=== PATIENT | male | born 1980 | race African-American/Black ===

== ENCOUNTER 2017-10-21 08:46 | Emergency (ER) | payer OTHER ==
[2017-10-21] MEDS ORDERED: SODIUM CHLORIDE 0.9% 1,000 ML IV STA (08:50)
[2017-10-21] MEDS ORDERED: ONDANSETRON 4 MG/2 ML VIAL IVP STA (08:50)
[2017-10-21 09:01] LABS: Glucose,Whole Blood 93 mg/dL (75-99)
--- NOTE | 2017-10-21 09:03 | ED ---
General Adult HPI - General Stated complaint: Difficulty Breathing Time Seen by Provider: 10/21/17 08:50 - History of Present Illness Initial comments: 37 male presents by EMS for evaluation of concern for seizure and difficulty breathing. Original EMS call was by family members who stated they felt the patient was about to have a seizure coming does have seizure history. When EMS arrived patient was mildly hypoxic at 90-92%. He was tachycardic in the 120s. Patient was minimally responsive although he would respond to sternal rub. History obtained from the family, patient was out with his friends yesterday in the afternoon consuming alcohol. He came home around 7 PM, fell sleep throughout the night, patient's family did notice that he had some mucus or vomit around his mouth and had some difficulty breathing. Patient had no complaints at the time my evaluation. He denied any street drugs, states he uses marijuana and does admit to alcohol consumption yesterday. - Related Data Home Medications Medication Instructions Recorded Confirmed Atenolol [Tenormin] 25 mg PO DAILY 10/21/17 10/21/17 Naproxen 500 mg PO BID PRN 10/21/17 10/21/17 levETIRAcetam [Keppra] 1,000 mg PO DAILY 10/21/17 10/21/17 Allergies Allergy/AdvReac Type Severity Reaction Status Date / Time No Known Allergies Allergy Verified 10/21/17 09:40 Review of Systems ROS Statement: Those systems with pertinent positive or pertinent negative responses have been documented in the HPI. ROS Other: All systems not noted in ROS Statement are negative. Past Medical History Past Medical History: Hypertension, Seizure Disorder Additional Past Medical History / Comment(s): Pt states he is normally on blood pressure medication but has run out. He has recently moved from [place] to [place] about 1 month ago and has not established with a primary care physician. Last seizure 02/19/16. History of Any Multi-Drug Resistant Organisms: None Reported Past Surgical History: No Surgical Hx Reported Past Anesthesia/Blood Transfusion Reactions: Unable to Obtain Additional Past Anesthesia/Blood Transfusion Reaction / Comment(s): Pt has never had surgery/anesthesia Past Psychological History: No Psychological Hx Reported Additional Psychological History / Comment(s): Pt states he is under alot of stress lately. He moved about a month ago from [place] to [place] to be closer to his children. He is independent other than he does not drive but his friend who lives with him does and will take him to [employer]. Smoking Status: Current every day smoker Past Alcohol Use History: Occasional Additional Past Alcohol Use History / Comment(s): Pt states he starte smoking at age 17 and is a 1ppd smoker. He states he drinks alcohol but does not drink more than 14 drinks per week. Additional Drug Use History / Comment(s): Pt states he smokes a blunt daily - Past Family History Father Family Medical History: CVA/TIA Additional Family Medical History / Comment(s): Father is in his 60's Mother Family Medical History: Diabetes Mellitus, Hypertension General Exam General appearance: appears intoxicated, lethargic Head exam: Present: atraumatic, normocephalic Eye exam: Present: normal appearance, other (Pinpoint pupils bilaterally) ENT exam: Present: mucous membranes dry Neck exam: Present: normal inspection, full ROM. Absent: tenderness Respiratory exam: Present: decreased breath sounds. Absent: respiratory distress Cardiovascular Exam: Present: normal rhythm, tachycardia GI/Abdominal exam: Present: soft. Absent: distended, tenderness, guarding Extremities exam: Present: normal inspection, normal capillary refill, pedal edema. Absent: calf tenderness Neurological exam: Present: alert, oriented X3, CN II-XII intact. Absent: motor sensory deficit Psychiatric exam: Present: normal affect, normal mood Skin exam: Present: warm, dry, intact Course Vital Signs 10/21/17 10/21/17 10/21/17 09:10 09:13 09:38 Temperature 96.7 F L Pulse Rate 135 H 108 H Respiratory 22 22 Rate Blood Pressure 170/105 O2 Sat by Pulse 93 L 94 L Oximetry 10/21/17 10/21/17 10/21/17 10:38 11:00 12:52 Temperature Pulse Rate 102 H 101 H 107 H Respiratory 20 20 18 Rate Blood Pressure 150/83 109/68 127/77 O2 Sat by Pulse 95 95 96 Oximetry - Reevaluation(s) Reevaluation #1: 10/21/17 12:56 On reevaluation, patient does admit to drinking excessive amounts of alcohol and taking 3 [place] as which were not prescribed to him. EKG Findings - EKG Comments: EKG Findings:: EKG shows sinus tachycardia, ventricular rate of 108, LVH, DE interval 132, QRS 86, QTC 447, no signs of ischemia or arrhythmia Medical Decision Making - Medical Decision Making 31 sexual male presenting with chief complaint of difficulty breathing and possible seizure. He does admit to not taking his Keppra twice daily. Patient initially found to be minimally responsive only to sternal rub, and pinpoint pupils. He is given Narcan emergency department with completely reversal of symptoms. He is awake and alert. Neurologic exam nonfocal. Pupils are reactive bilaterally. Laboratory studies which were drawn initially show elevated white blood cell count, elevated serum alcohol at 173, elevated AST greater than ALT suggestive of alcoholic hepatitis, lactic acid is significantly elevated 10.2, this is likely secondary to irritable dehydration and hypoxia secondary to opiate ingestion. Creatinine mildly elevated 1.28, chest x-ray clear. Patient is observed in the emergency department 4 hours, he receives 3 L of IV hydration. Laboratory studies are repeated, creatinine resolved, lactic acid significantly down trending at 3. Patient is reevaluated , he is clinically sober. He has no complaints the time of my evaluation at 1255. He will be discharged home. He is instructed to continue taking his seizure medication as prescribed. He is also instructed to refrain from taking prescription medications not prescribed to him. - Lab Data Result diagrams: 10/21/17 12:06 10/21/17 12:06 Lab Results 10/21/17 10/21/17 10/21/17 Range/Units 08:50 08:54 08:54 WBC 15.9 H (3.8-10.6) k/uL RBC 4.88 (4.30-5.90) m/uL Hgb 14.7 (13.0-17.5) gm/dL Hct 47.9 (39.0-53.0) % MCV 98.2 (80.0-100.0) fL MCH 30.2 (25.0-35.0) pg MCHC 30.8 L (31.0-37.0) g/dL RDW 15.1 (11.5-15.5) % Plt Count 226 (150-450) k/uL Neutrophils % 86 % Lymphocytes % 9 % Monocytes % 2 % Eosinophils % 1 % Basophils % 0 % Neutrophils # 13.7 H (1.3-7.7) k/uL Lymphocytes # 1.5 (1.0-4.8) k/uL Monocytes # 0.4 (0-1.0) k/uL Eosinophils # 0.1 (0-0.7) k/uL Basophils # 0.0 (0-0.2) k/uL PT (9.0-12.0) sec INR (<1.2) APTT (22.0-30.0) sec Sodium (137-145) mmol/L Potassium (3.5-5.1) mmol/L Chloride (98-107) mmol/L Carbon Dioxide (22-30) mmol/L Anion Gap mmol/L BUN (9-20) mg/dL Creatinine (0.66-1.25) mg/dL Est GFR (MDRD) Af Amer (>60 ml/min/1.73 sqM) Est GFR (MDRD) Non-Af (>60 ml/min/1.73 sqM) Glucose (74-99) mg/dL POC Glucose (mg/dL) 93 (75-99) mg/dL POC Glu Plating Department Helper ID Damián Boyd Plasma Lactic Acid Maury (0.7-2.0) mmol/L Calcium (8.4-10.2) mg/dL Magnesium (1.6-2.3) mg/dL Total Bilirubin (0.2-1.3) mg/dL AST (17-59) U/L ALT (21-72) U/L Alkaline Phosphatase (38-126) U/L Total Creatine Kinase 742 H (55-170) U/L CK-MB (CK-2) 4.0 H* (0.0-2.4) ng/mL CK-MB (CK-2) Rel Index 0.5 Total Protein (6.3-8.2) g/dL Albumin (3.5-5.0) g/dL Urine Color Urine Appearance (Clear) Urine pH (5.0-8.0) Ur Specific Franklin (1.001-1.035) Urine Protein (Negative) Urine Glucose (UA) (Negative) Urine Ketones (Negative) Urine Blood (Negative) Urine Nitrite (Negative) Urine Bilirubin (Negative) Urine Urobilinogen (<2.0) mg/dL Ur Leukocyte Esterase (Negative) Urine WBC (0-5) /hpf Ur Squamous Epith Cells (0-4) /hpf Granular Casts (0) /lpf Urine Mucus (None) /hpf Urine Opiates Screen (NotDetected) Ur Oxycodone Screen (NotDetected) Urine Methadone Screen (NotDetected) Ur Propoxyphene Screen (NotDetected) Ur Barbiturates Screen (NotDetected) U Tricyclic Antidepress (NotDetected) Ur Phencyclidine Scrn (NotDetected) Ur Amphetamines Screen (NotDetected) U Methamphetamines Scrn (NotDetected) U Benzodiazepines Scrn (NotDetected) Urine Cocaine Screen (NotDetected) U Marijuana (THC) Screen (NotDetected) Serum Alcohol mg/dL 10/21/17 10/21/17 10/21/17 Range/Units 08:54 08:54 08:54 WBC (3.8-10.6) k/uL RBC (4.30-5.90) m/uL Hgb (13.0-17.5) gm/dL Hct (39.0-53.0) % MCV (80.0-100.0) fL MCH (25.0-35.0) pg MCHC (31.0-37.0) g/dL RDW (11.5-15.5) % Plt Count (150-450) k/uL Neutrophils % % Lymphocytes % % Monocytes % % Eosinophils % % Basophils % % Neutrophils # (1.3-7.7) k/uL Lymphocytes # (1.0-4.8) k/uL Monocytes # (0-1.0) k/uL Eosinophils # (0-0.7) k/uL Basophils # (0-0.2) k/uL PT 10.8 (9.0-12.0) sec INR 1.1 (<1.2) APTT 23.3 (22.0-30.0) sec Sodium 144 (137-145) mmol/L Potassium 5.2 H (3.5-5.1) mmol/L Chloride 104 (98-107) mmol/L Carbon Dioxide 15 L (22-30) mmol/L Anion Gap 25 mmol/L BUN 8 L (9-20) mg/dL Creatinine 1.28 H (0.66-1.25) mg/dL Est GFR (MDRD) Af Amer >60 (>60 ml/min/1.73 sqM) Est GFR (MDRD) Non-Af >60 (>60 ml/min/1.73 sqM) Glucose 88 (74-99) mg/dL POC Glucose (mg/dL) (75-99) mg/dL POC Glu Plating Department Helper ID Plasma Lactic Acid Maury 10.2 H* (0.7-2.0) mmol/L Calcium 9.6 (8.4-10.2) mg/dL Magnesium 1.8 (1.6-2.3) mg/dL Total Bilirubin 0.8 (0.2-1.3) mg/dL AST 181 H (17-59) U/L ALT 81 H (21-72) U/L Alkaline Phosphatase 113 (38-126) U/L Total Creatine Kinase (55-170) U/L CK-MB (CK-2) (0.0-2.4) ng/mL CK-MB (CK-2) Rel Index Total Protein 9.0 H (6.3-8.2) g/dL Albumin 5.4 H (3.5-5.0) g/dL Urine Color Urine Appearance (Clear) Urine pH (5.0-8.0) Ur Specific Franklin (1.001-1.035) Urine Protein (Negative) Urine Glucose (UA) (Negative) Urine Ketones (Negative) Urine Blood (Negative) Urine Nitrite (Negative) Urine Bilirubin (Negative) Urine Urobilinogen (<2.0) mg/dL Ur Leukocyte Esterase (Negative) Urine WBC (0-5) /hpf Ur Squamous Epith Cells (0-4) /hpf Granular Casts (0) /lpf Urine Mucus (None) /hpf Urine Opiates Screen (NotDetected) Ur Oxycodone Screen (NotDetected) Urine Methadone Screen (NotDetected) Ur Propoxyphene Screen (NotDetected) Ur Barbiturates Screen (NotDetected) U Tricyclic Antidepress (NotDetected) Ur Phencyclidine Scrn (NotDetected) Ur Amphetamines Screen (NotDetected) U Methamphetamines Scrn (NotDetected) U Benzodiazepines Scrn (NotDetected) Urine Cocaine Screen (NotDetected) U Marijuana (THC) Screen (NotDetected) Serum Alcohol 173 mg/dL 10/21/17 10/21/17 10/21/17 Range/Units 11:23 12:06 12:06 WBC 15.0 H (3.8-10.6) k/uL RBC 4.24 L (4.30-5.90) m/uL Hgb 13.1 (13.0-17.5) gm/dL Hct 40.5 (39.0-53.0) % MCV 95.5 (80.0-100.0) fL MCH 31.0 (25.0-35.0) pg MCHC 32.5 (31.0-37.0) g/dL RDW 13.8 (11.5-15.5) % Plt Count 190 (150-450) k/uL Neutrophils % 89 % Lymphocytes % 4 % Monocytes % 4 % Eosinophils % 1 % Basophils % 0 % Neutrophils # 13.4 H (1.3-7.7) k/uL Lymphocytes # 0.7 L (1.0-4.8) k/uL Monocytes # 0.7 (0-1.0) k/uL Eosinophils # 0.2 (0-0.7) k/uL Basophils # 0.0 (0-0.2) k/uL PT (9.0-12.0) sec INR (<1.2) APTT (22.0-30.0) sec Sodium 144 (137-145) mmol/L Potassium 4.9 (3.5-5.1) mmol/L Chloride 107 (98-107) mmol/L Carbon Dioxide 25 (22-30) mmol/L Anion Gap 12 mmol/L BUN 8 L (9-20) mg/dL Creatinine 1.04 (0.66-1.25) mg/dL Est GFR (MDRD) Af Amer >60 (>60 ml/min/1.73 sqM) Est GFR (MDRD) Non-Af >60 (>60 ml/min/1.73 sqM) Glucose 64 L (74-99) mg/dL POC Glucose (mg/dL) (75-99) mg/dL POC Glu Plating Department Helper ID Plasma Lactic Acid Maury (0.7-2.0) mmol/L Calcium 8.5 (8.4-10.2) mg/dL Magnesium (1.6-2.3) mg/dL Total Bilirubin (0.2-1.3) mg/dL AST (17-59) U/L ALT (21-72) U/L Alkaline Phosphatase (38-126) U/L Total Creatine Kinase (55-170) U/L CK-MB (CK-2) (0.0-2.4) ng/mL CK-MB (CK-2) Rel Index Total Protein (6.3-8.2) g/dL Albumin (3.5-5.0) g/dL Urine Color Yellow Urine Appearance Clear (Clear) Urine pH 5.0 (5.0-8.0) Ur Specific Franklin 1.007 (1.001-1.035) Urine Protein Trace H (Negative) Urine Glucose (UA) Negative (Negative) Urine Ketones Trace H (Negative) Urine Blood Small H (Negative) Urine Nitrite Negative (Negative) Urine Bilirubin Negative (Negative) Urine Urobilinogen <2.0 (<2.0) mg/dL Ur Leukocyte Esterase Negative (Negative) Urine WBC 1 (0-5) /hpf Ur Squamous Epith Cells <1 (0-4) /hpf Granular Casts 14 (0) /lpf Urine Mucus Rare H (None) /hpf Urine Opiates Screen Not Detected (NotDetected) Ur Oxycodone Screen Not Detected (NotDetected) Urine Methadone Screen Not Detected (NotDetected) Ur Propoxyphene Screen Not Detected (NotDetected) Ur Barbiturates Screen Not Detected (NotDetected) U Tricyclic Antidepress Not Detected (NotDetected) Ur Phencyclidine Scrn Not Detected (NotDetected) Ur Amphetamines Screen Not Detected (NotDetected) U Methamphetamines Scrn Not Detected (NotDetected) U Benzodiazepines Scrn Not Detected (NotDetected) Urine Cocaine Screen Not Detected (NotDetected) U Marijuana (THC) Screen Detected H (NotDetected) Serum Alcohol mg/dL 10/21/17 Range/Units 12:06 WBC (3.8-10.6) k/uL RBC (4.30-5.90) m/uL Hgb (13.0-17.5) gm/dL Hct (39.0-53.0) % MCV (80.0-100.0) fL MCH (25.0-35.0) pg MCHC (31.0-37.0) g/dL RDW (11.5-15.5) % Plt Count (150-450) k/uL Neutrophils % % Lymphocytes % % Monocytes % % Eosinophils % % Basophils % % Neutrophils # (1.3-7.7) k/uL Lymphocytes # (1.0-4.8) k/uL Monocytes # (0-1.0) k/uL Eosinophils # (0-0.7) k/uL Basophils # (0-0.2) k/uL PT (9.0-12.0) sec INR (<1.2) APTT (22.0-30.0) sec Sodium (137-145) mmol/L Potassium (3.5-5.1) mmol/L Chloride (98-107) mmol/L Carbon Dioxide (22-30) mmol/L Anion Gap mmol/L BUN (9-20) mg/dL Creatinine (0.66-1.25) mg/dL Est GFR (MDRD) Af Amer (>60 ml/min/1.73 sqM) Est GFR (MDRD) Non-Af (>60 ml/min/1.73 sqM) Glucose (74-99) mg/dL POC Glucose (mg/dL) (75-99) mg/dL POC Glu Plating Department Helper ID Plasma Lactic Acid Maury 3.4 H* (0.7-2.0) mmol/L Calcium (8.4-10.2) mg/dL Magnesium (1.6-2.3) mg/dL Total Bilirubin (0.2-1.3) mg/dL AST (17-59) U/L ALT (21-72) U/L Alkaline Phosphatase (38-126) U/L Total Creatine Kinase (55-170) U/L CK-MB (CK-2) (0.0-2.4) ng/mL CK-MB (CK-2) Rel Index Total Protein (6.3-8.2) g/dL Albumin (3.5-5.0) g/dL Urine Color Urine Appearance (Clear) Urine pH (5.0-8.0) Ur Specific Franklin (1.001-1.035) Urine Protein (Negative) Urine Glucose (UA) (Negative) Urine Ketones (Negative) Urine Blood (Negative) Urine Nitrite (Negative) Urine Bilirubin (Negative) Urine Urobilinogen (<2.0) mg/dL Ur Leukocyte Esterase (Negative) Urine WBC (0-5) /hpf Ur Squamous Epith Cells (0-4) /hpf Granular Casts (0) /lpf Urine Mucus (None) /hpf Urine Opiates Screen (NotDetected) Ur Oxycodone Screen (NotDetected) Urine Methadone Screen (NotDetected) Ur Propoxyphene Screen (NotDetected) Ur Barbiturates Screen (NotDetected) U Tricyclic Antidepress (NotDetected) Ur Phencyclidine Scrn (NotDetected) Ur Amphetamines Screen (NotDetected) U Methamphetamines Scrn (NotDetected) U Benzodiazepines Scrn (NotDetected) Urine Cocaine Screen (NotDetected) U Marijuana (THC) Screen (NotDetected) Serum Alcohol mg/dL Disposition Clinical Impression: Overdose, Alcohol intoxication Disposition: HOME SELF-CARE Condition: Fair Instructions: Opioid Overdose (ED), Alcohol Intoxication (ED) Referrals: Nitza Dominguez MD [Primary Care Provider] - 1-2 days Time of Disposition: 13:00
[2017-10-21] MEDS ORDERED: NALOXONE 0.4 MG/ML 10 ML VIAL IVP STA (09:19)
[2017-10-21 09:34] LABS: Basophils % (A) 0 %; Eosinophils # (A) 0.1 k/uL (0-0.7); Eosinophils % (A) 1 %; HCT 47.9 % (39.0-53.0); HGB 14.7 gm/dL (13.0-17.5); Lymphocytes # (A) 1.5 k/uL (1.0-4.8); Lymphocytes % (A) 9 %; MCH 30.2 pg (25.0-35.0); MCHC 30.8 g/dL (31.0-37.0); MCV 98.2 fL (80.0-100.0); Mean Platelet Volume 7.4; Monocytes # (A) 0.4 k/uL (0-1.0); Monocytes % (A) 2 %; Neutrophils # (A) 13.7 k/uL (1.3-7.7); Neutrophils % (A) 86 %; Platelet Count 226 k/uL (150-450); RBC 4.88 m/uL (4.30-5.90); RDW 15.1 % (11.5-15.5); WBC 15.9 k/uL (3.8-10.6)
[2017-10-21 09:42] LABS: INR 1.1 (<1.2); Partial Thromboplastin Time 23.3 sec (22.0-30.0); Prothrombin Time 10.8 sec (9.0-12.0)
[2017-10-21 09:50] LABS: ALT 81 U/L (21-72); AST 181 U/L (17-59); Albumin 5.4 g/dL (3.5-5.0); Alkaline Phosphatase 113 U/L (38-126); Anion Gap 25 mmol/L; Blood Urea Nitrogen 8 mg/dL (9-20); Calcium 9.6 mg/dL (8.4-10.2); Carbon Dioxide 15 mmol/L (22-30); Chloride 104 mmol/L (98-107); Glucose 88 mg/dL (74-99); Magnesium 1.8 mg/dL (1.6-2.3); Potassium 5.2 mmol/L (3.5-5.1); Sodium 144 mmol/L (137-145); Total Bilirubin 0.8 mg/dL (0.2-1.3)
[2017-10-21 09:56] LABS: Alcohol 173 mg/dL
--- NOTE | 2017-10-21 09:59 | XR ---
EXAMINATION TYPE: XR chest 2V DATE OF EXAM: 10/21/2017 COMPARISON: 02/19/2016 HISTORY: History of seizures with abdominal pain, chest pain and vomiting. TECHNIQUE: Frontal and lateral views of the chest are obtained. FINDINGS: There is no focal air space opacity, pleural effusion, or pneumothorax seen. The cardiac silhouette size is within normal limits. The osseous structures are intact. IMPRESSION: No acute cardiopulmonary process.
[2017-10-21] MEDS ORDERED: SODIUM CHLORIDE 0.9% 1,000 ML IV ONE ×2 (10:24→10:59)
[2017-10-21 11:49] LABS: Appearance,Urine Clear (Clear); Bilirubin,Urine Negative (Negative); Blood,Urine Small (Negative); Color,Urine Yellow; Glucose,Urine (UA) Negative (Negative); Granular Casts,Urine 14 /lpf (0); Ketones,Urine Trace (Negative); Leukocyte Esterase,Urine Negative (Negative); Mucus,Urine Rare /hpf; Nitrite,Urine Negative (Negative); Protein,Urine Trace (Negative); Specific Gravity,Urine 1.007 (1.001-1.035); Squamous Epithelial Cell,Urine <1 /hpf (0-4); Urobilinogen,Urine <2.0 mg/dL (<2.0); WBC,Urine 1 /hpf (0-5)
[2017-10-21] MEDS ORDERED: levETIRAcetam IV 1,000 MG in SALINE 1 100ML.BAG IVPB STA (11:53)
[2017-10-21 11:59] LABS: Amphetamine Screen,Urine Not Detected (NotDetected); Barbiturate Screen,Urine Not Detected (NotDetected); Benzodiazepines Screen,Urine Not Detected (NotDetected); Cocaine Screen,Urine Not Detected (NotDetected); Methadone Screen, Urine Not Detected (NotDetected); Opiate Screen,Urine Not Detected (NotDetected); Oxycodone Screen, Urine Not Detected (NotDetected); Phencyclidine Screen,Urine Not Detected (NotDetected); Tricyclic Antidepressant,Urine Not Detected (NotDetected); Urn Cannabinoid Scrn Detected (NotDetected)
[2017-10-21 12:32] LABS: Anion Gap 12 mmol/L; Blood Urea Nitrogen 8 mg/dL (9-20); Calcium 8.5 mg/dL (8.4-10.2); Carbon Dioxide 25 mmol/L (22-30); Chloride 107 mmol/L (98-107); Glucose 64 mg/dL (74-99); Potassium 4.9 mmol/L (3.5-5.1); Sodium 144 mmol/L (137-145)
[2017-10-21 12:36] LABS: Basophils % (A) 0 %; Eosinophils # (A) 0.2 k/uL (0-0.7); Eosinophils % (A) 1 %; HCT 40.5 % (39.0-53.0); HGB 13.1 gm/dL (13.0-17.5); Lymphocytes # (A) 0.7 k/uL (1.0-4.8); Lymphocytes % (A) 4 %; MCHC 32.5 g/dL (31.0-37.0); MCV 95.5 fL (80.0-100.0); Mean Platelet Volume 6.6; Monocytes # (A) 0.7 k/uL (0-1.0); Monocytes % (A) 4 %; Neutrophils # (A) 13.4 k/uL (1.3-7.7); Neutrophils % (A) 89 %; Platelet Count 190 k/uL (150-450); RBC 4.24 m/uL (4.30-5.90); RDW 13.8 % (11.5-15.5)
[2017-10-21 12:54] VITALS: BP 127/77; PULSE 107; RESP 18
[2017-10-21 13:07] VITALS: TEMP 97.3
== END 2017-10-21 13:22 | disposition home or self-care (01) ==
LOC: EC 08:46
DX: T65.91XA Toxic effect of unspecified substance, accidental (unintentional), initial encounter (principal); F10.120 Alcohol abuse with intoxication, uncomplicated; I10 Essential (primary) hypertension; Z86.69 Personal history of other diseases of the nervous system and sense organs; Z79.899 Other long term (current) drug therapy
CPT/HCPCS: 99285; 96374; 96375 ×2; 96361 ×4; 36415; 93005; 80053; 80048; 82550; 82553; 83605; 83735; 85025; 85610; 85730; 81001; 80306; 80320; 71046; J2310; J2405; J1953

== ENCOUNTER → 2018-08-01 | Outpatient (CLI) | payer OTHER ==
[2018-08-01 21:37] LABS: ALT 42 U/L (21-72); AST 58 U/L (17-59); Albumin 4.5 g/dL (3.5-5.0); Alkaline Phosphatase 92 U/L (38-126); Anion Gap 8 mmol/L; Blood Urea Nitrogen 6 mg/dL (9-20); Calcium 9.9 mg/dL (8.4-10.2); Carbon Dioxide 28 mmol/L (22-30); Chloride 103 mmol/L (98-107); Glucose 88 mg/dL (74-99); Potassium 4.3 mmol/L (3.5-5.1); Sodium 139 mmol/L (137-145); Total Bilirubin 1.4 mg/dL (0.2-1.3)
[2018-08-01 21:42] LABS: HCT 46.4 % (39.0-53.0); HGB 14.8 gm/dL (13.0-17.5); MCH 29.3 pg (25.0-35.0); MCHC 31.9 g/dL (31.0-37.0); MCV 91.6 fL (80.0-100.0); Platelet Count 196 k/uL (150-450); RBC 5.06 m/uL (4.30-5.90); WBC 8.1 k/uL (3.8-10.6)
[2018-08-01 21:50] LABS: C Reactive Protein <5.0 mg/L (<10.0)
[2018-08-01 22:37] LABS: Erythrocyte Sedimentation Rate 3 mm/hr (0-15)
== END | disposition home or self-care (01) ==
LOC: RADMRIMAIN 20:47
PROVIDERS: ATTEND Psychiatry & Neurology Pain Medicine
DX: G40.909 Epilepsy, unspecified, not intractable, without status epilepticus (principal)
CPT/HCPCS: 80053; 85027; 85652; 86140

== ENCOUNTER 2018-09-19 04:39 | Emergency (ER) | payer OTHER ==
[2018-09-19 04:48] VITALS: RESP 16; TEMP 99.3
[2018-09-19] MEDS ORDERED: SODIUM CHLORIDE 0.9% 1,000 ML IV STA (04:52)
[2018-09-19 05:02] LABS: Glucose,Whole Blood 139 mg/dL (75-99)
[2018-09-19] MEDS ORDERED: levETIRAcetam IV 1,000 MG in SALINE 1 100ML.BAG IVPB STA (05:07)
[2018-09-19] MEDS ORDERED: ONDANSETRON 4 MG/2 ML VIAL IVP STA (05:07)
[2018-09-19 05:12] LABS: Basophils # (A) 0.1 k/uL (0-0.2); Basophils % (A) 0 %; Eosinophils # (A) 0.2 k/uL (0-0.7); Eosinophils % (A) 2 %; HCT 52.7 % (39.0-53.0); HGB 16.6 gm/dL (13.0-17.5); Lymphocytes # (A) 4.5 k/uL (1.0-4.8); Lymphocytes % (A) 32 %; MCH 29.9 pg (25.0-35.0); MCHC 31.5 g/dL (31.0-37.0); MCV 95.1 fL (80.0-100.0); Monocytes # (A) 0.8 k/uL (0-1.0); Monocytes % (A) 5 %; Neutrophils # (A) 8.2 k/uL (1.3-7.7); Neutrophils % (A) 59 %; Platelet Count 265 k/uL (150-450); RBC 5.54 m/uL (4.30-5.90)
[2018-09-19 05:24] LABS: ALT 62 U/L (21-72); AST 117 U/L (17-59); Alkaline Phosphatase 116 U/L (38-126); Anion Gap 25 mmol/L; Blood Urea Nitrogen 6 mg/dL (9-20); Calcium 9.6 mg/dL (8.4-10.2); Carbon Dioxide 12 mmol/L (22-30); Chloride 104 mmol/L (98-107); Glucose 138 mg/dL (74-99); Potassium 4.1 mmol/L (3.5-5.1); Sodium 141 mmol/L (137-145); Total Protein 8.7 g/dL (6.3-8.2)
--- NOTE | 2018-09-19 05:36 | CT ---
EXAM: CT Head Without Intravenous Contrast CLINICAL HISTORY: Seizure activity TECHNIQUE: Axial computed tomography images of the head/brain without intravenous contrast. CTDI is 0.085, 0.085, 49.1 mGy and DLP is 1107.4 mGy-cm. This CT exam was performed using one or more of the following dose reduction techniques: automated exposure control, adjustment of the mA and/or kV according to patient size, and/or use of iterative reconstruction technique. COMPARISON: CT head dated 02/19/2016 FINDINGS: Brain: No acute infarct, hemorrhage, mass or edema. No significant white matter disease. Ventricles: Unremarkable. No ventriculomegaly. Bones/joints: No acute osseous abnormality. Soft tissues: Unremarkable. Sinuses: Minimal mucosal thickening of paranasal sinuses. Mastoid air cells: Unremarkable as visualized. No mastoid effusion. IMPRESSION: No acute findings.
[2018-09-19] MEDS ORDERED: SODIUM CHLORIDE 0.9% 1,000 ML IV ONE (05:44)
--- NOTE | 2018-09-19 05:47 | ED ---
General Adult HPI - General Chief complaint: Seizure Stated complaint: Seizure Time Seen by Provider: 09/19/18 04:49 Source: patient, police, EMS, RN notes reviewed Mode of arrival: EMS Limitations: altered mental status - History of Present Illness Initial comments: 38-year-old male presenting for evaluation of seizure. Patient has seizure disorder, currently taking 500 mg Keppra twice daily. Patient has had 2 generalized tonic-clonic seizures prior to arrival. Lasting several minutes each. He was postictal after each seizure. His company by family member who is able to aid in the history. Patient denies headache. Denies focal numbness or weakness. He has been compliant with his medications. He does follow with neurology on a regular basis. Patient has additional past medical history of hypertension. He is uncertain if he took his hypertensive medication today. - Related Data Home Medications Medication Instructions Recorded Confirmed Atenolol [Tenormin] 25 mg PO DAILY 10/21/17 10/21/17 Naproxen 500 mg PO BID PRN 10/21/17 10/21/17 levETIRAcetam [Keppra] 1,000 mg PO DAILY 10/21/17 10/21/17 Allergies Allergy/AdvReac Type Severity Reaction Status Date / Time No Known Allergies Allergy Verified 09/19/18 04:48 Review of Systems ROS Statement: Those systems with pertinent positive or pertinent negative responses have been documented in the HPI. ROS Other: All systems not noted in ROS Statement are negative. Past Medical History Past Medical History: Hypertension, Seizure Disorder Additional Past Medical History / Comment(s): Pt states he is normally on blood pressure medication but has run out. He has recently moved from [place] to [place] about 1 month ago and has not established with a primary care physician. Last seizure 02/19/16. History of Any Multi-Drug Resistant Organisms: None Reported Past Surgical History: No Surgical Hx Reported Past Anesthesia/Blood Transfusion Reactions: Unable to Obtain Additional Past Anesthesia/Blood Transfusion Reaction / Comment(s): Pt has never had surgery/anesthesia Past Psychological History: No Psychological Hx Reported Smoking Status: Current every day smoker Past Alcohol Use History: Occasional - Past Family History Father Family Medical History: CVA/TIA Additional Family Medical History / Comment(s): Father is in his 60's Mother Family Medical History: Diabetes Mellitus, Hypertension General Exam Limitations: altered mental status General appearance: alert, in no apparent distress Head exam: Present: atraumatic, normocephalic Eye exam: Present: normal appearance, PERRL ENT exam: Present: normal exam Neck exam: Present: normal inspection. Absent: tenderness, meningismus Respiratory exam: Present: normal lung sounds bilaterally, respiratory distress Cardiovascular Exam: Present: normal rhythm, tachycardia GI/Abdominal exam: Present: soft. Absent: distended, tenderness, guarding Extremities exam: Present: normal inspection, normal capillary refill. Absent: pedal edema Neurological exam: Present: alert, oriented X3, CN II-XII intact. Absent: motor sensory deficit Psychiatric exam: Present: normal affect, normal mood Skin exam: Present: warm, dry, intact. Absent: cyanosis, diaphoretic Course Vital Signs 09/19/18 04:43 Temperature 99.3 F Pulse Rate 106 H Respiratory 16 Rate Blood Pressure 180/121 O2 Sat by Pulse 97 Oximetry EKG Findings - EKG Comments: EKG Findings:: EKG: Sinus tachycardia left ventricular hypertrophy, possible left atrial enlargement, rate of 105, OK interval 154, QRS duration 88, QTC 459 Medical Decision Making - Medical Decision Making 38-year-old male history of seizure disorder presents with several seizures throughout the day today. Patient reports he has been compliant with his medication. Keppra level is obtained, this is pending and can be followed up on by his neurologist. Laboratory studies obtained, normal electrolytes, patient is acidotic with CO2 of 12. Likely secondary to lactic acidosis and seizure. Mild leukocytosis likely reactive. No CT evidence of acute intracranial process, no hemorrhage. Patient does have mild elevation in AST, there is some concern for alcohol abuse. He does report he drinks several beers daily. He states last drink was today. He is given Keppra in the emergency department. Patient has outpatient neurology follow-up. He is eager for discharge. He will speak to his neurologist about possible increase in Keppra dosing. - Lab Data Result diagrams: 09/19/18 04:55 09/19/18 04:55 Lab Results 09/19/18 09/19/18 09/19/18 Range/Units 04:55 04:55 04:55 WBC 14.0 H (3.8-10.6) k/uL RBC 5.54 (4.30-5.90) m/uL Hgb 16.6 (13.0-17.5) gm/dL Hct 52.7 (39.0-53.0) % MCV 95.1 (80.0-100.0) fL MCH 29.9 (25.0-35.0) pg MCHC 31.5 (31.0-37.0) g/dL RDW 14.0 (11.5-15.5) % Plt Count 265 (150-450) k/uL Neutrophils % 59 % Lymphocytes % 32 % Monocytes % 5 % Eosinophils % 2 % Basophils % 0 % Neutrophils # 8.2 H (1.3-7.7) k/uL Lymphocytes # 4.5 (1.0-4.8) k/uL Monocytes # 0.8 (0-1.0) k/uL Eosinophils # 0.2 (0-0.7) k/uL Basophils # 0.1 (0-0.2) k/uL Sodium 141 (137-145) mmol/L Potassium 4.1 (3.5-5.1) mmol/L Chloride 104 (98-107) mmol/L Carbon Dioxide 12 L (22-30) mmol/L Anion Gap 25 mmol/L BUN 6 L (9-20) mg/dL Creatinine 1.13 (0.66-1.25) mg/dL Est GFR (CKD-EPI)AfAm >90 (>60 ml/min/1.73 sqM) Est GFR (CKD-EPI)NonAf 83 (>60 ml/min/1.73 sqM) Glucose 138 H (74-99) mg/dL POC Glucose (mg/dL) (75-99) mg/dL POC Glu [employer] Attendant ID Calcium 9.6 (8.4-10.2) mg/dL Magnesium 2.0 (1.6-2.3) mg/dL Total Bilirubin 1.0 (0.2-1.3) mg/dL AST 117 H (17-59) U/L ALT 62 (21-72) U/L Alkaline Phosphatase 116 (38-126) U/L Troponin I <0.012 (0.000-0.034) ng/mL Total Protein 8.7 H (6.3-8.2) g/dL Albumin 5.0 (3.5-5.0) g/dL 09/19/18 Range/Units 05:01 WBC (3.8-10.6) k/uL RBC (4.30-5.90) m/uL Hgb (13.0-17.5) gm/dL Hct (39.0-53.0) % MCV (80.0-100.0) fL MCH (25.0-35.0) pg MCHC (31.0-37.0) g/dL RDW (11.5-15.5) % Plt Count (150-450) k/uL Neutrophils % % Lymphocytes % % Monocytes % % Eosinophils % % Basophils % % Neutrophils # (1.3-7.7) k/uL Lymphocytes # (1.0-4.8) k/uL Monocytes # (0-1.0) k/uL Eosinophils # (0-0.7) k/uL Basophils # (0-0.2) k/uL Sodium (137-145) mmol/L Potassium (3.5-5.1) mmol/L Chloride (98-107) mmol/L Carbon Dioxide (22-30) mmol/L Anion Gap mmol/L BUN (9-20) mg/dL Creatinine (0.66-1.25) mg/dL Est GFR (CKD-EPI)AfAm (>60 ml/min/1.73 sqM) Est GFR (CKD-EPI)NonAf (>60 ml/min/1.73 sqM) Glucose (74-99) mg/dL POC Glucose (mg/dL) 139 H (75-99) mg/dL POC Glu [employer] Attendant ID Graeme Balwinder Calcium (8.4-10.2) mg/dL Magnesium (1.6-2.3) mg/dL Total Bilirubin (0.2-1.3) mg/dL AST (17-59) U/L ALT (21-72) U/L Alkaline Phosphatase (38-126) U/L Troponin I (0.000-0.034) ng/mL Total Protein (6.3-8.2) g/dL Albumin (3.5-5.0) g/dL Disposition Clinical Impression: Generalized seizure Disposition: HOME SELF-CARE Condition: Fair Instructions: Recurrent Seizures in Adults (ED) Additional Instructions: Please call your neurologist today for close outpatient follow-up. Is patient prescribed a controlled substance at d/c from ED?: No Referrals: Nitza Dominguez MD [Primary Care Provider] - 1-2 days Balwinder Rolle NPC [REFERRING] - 1-2 days Time of Disposition: 06:38
[2018-09-19] MEDS ORDERED: ACETAMINOPHEN TAB 500 MG TAB PO STA (06:36)
[2018-09-19] MEDS ORDERED: LORazepam 2 MG/ML INJ IV STA (06:55)
[2018-09-19 06:56] VITALS: BP 174/121; PULSE 100
[2018-09-19] MEDS ORDERED: ATENOLOL 50 MG TAB PO STA (06:56)
[2018-09-19] MEDS ORDERED: ONDANSETRON 4 MG ODT STARTER PACK 2 TAB BTL PO STA (07:14)
== END 2018-09-19 07:26 | disposition home or self-care (01) ==
LOC: EC 04:39
DX: G40.409 Other generalized epilepsy and epileptic syndromes, not intractable, without status epilepticus (principal); D72.829 Elevated white blood cell count, unspecified; E87.2 Acidosis; R74.8 Abnormal levels of other serum enzymes; R41.82 Altered mental status, unspecified; R06.03 Acute respiratory distress; R00.0 Tachycardia, unspecified; I10 Essential (primary) hypertension; F17.200 Nicotine dependence, unspecified, uncomplicated; Z79.899 Other long term (current) drug therapy; Z82.49 Family history of ischemic heart disease and other diseases of the circulatory system
CPT/HCPCS: 99285; 96374; 96375 ×2; 96361 ×2; 36415; 80053; 80177; 83735; 84484; 85025; 70450; J2060; J2405; S0119; J1953

== ENCOUNTER 2019-06-28 07:14 | Inpatient (IN) | payer OTHER ==
[2019-06-28] MEDS ORDERED: SODIUM CHLORIDE 0.9% 1,000 ML IV STA ×3 (07:21→10:36)
[2019-06-28] MEDS ORDERED: levETIRAcetam IV 1,500 MG in SALINE 1 100ML.BAG IVPB STA (07:26)
--- NOTE | 2019-06-28 07:31 | ED ---
Seizure HPI - General Chief Complaint: Seizure Stated Complaint: Seizure Time Seen by Provider: 06/28/19 07:14 Source: patient, RN notes reviewed Mode of arrival: EMS Limitations: no limitations - History of Present Illness Initial Comments: Is a 39-year-old male with a history of seizure disorder who apparently hasn't had a seizure for year but also ran out Keppra about 2 weeks ago just prior to arrival reported seizure EMS did respond he was reported to be postictal though improving. There care. No injuries reported chills nausea vomiting sweats or other symptoms. MD Complaint: seizure - Related Data Home Medications Medication Instructions Recorded Confirmed levETIRAcetam [Keppra] 1,000 mg PO BID 10/21/17 06/28/19 Allergies Allergy/AdvReac Type Severity Reaction Status Date / Time No Known Allergies Allergy Verified 06/28/19 07:19 Review of Systems ROS Statement: Those systems with pertinent positive or pertinent negative responses have been documented in the HPI. ROS Other: All systems not noted in ROS Statement are negative. Past Medical History Past Medical History: Hypertension, Seizure Disorder Additional Past Medical History / Comment(s): Pt states he is normally on blood pressure medication but has run out. [place] and has not established with a primary care physician. Last seizure 02/19/16. History of Any Multi-Drug Resistant Organisms: None Reported Past Surgical History: No Surgical Hx Reported Past Anesthesia/Blood Transfusion Reactions: Unable to Obtain Additional Past Anesthesia/Blood Transfusion Reaction / Comment(s): Pt has never had surgery/anesthesia Past Psychological History: No Psychological Hx Reported Smoking Status: Current every day smoker Past Alcohol Use History: Daily Past Drug Use History: None Reported - Past Family History Father Family Medical History: CVA/TIA Additional Family Medical History / Comment(s): Father is in his 60's Mother Family Medical History: Diabetes Mellitus, Hypertension General Exam - General Exam Comments Initial Comments: This a well-developed well-nourished awake alert but somewhat lethargic male who is slow to respond Limitations: no limitations General appearance: alert, in no apparent distress Head exam: Present: atraumatic, normocephalic, normal inspection Eye exam: Present: normal appearance, PERRL, EOMI. Absent: scleral icterus, conjunctival injection, periorbital swelling ENT exam: Present: normal exam, mucous membranes moist Neck exam: Present: normal inspection, full ROM, other (No stridor JVD or bruits). Absent: tenderness, meningismus, lymphadenopathy Respiratory exam: Present: normal lung sounds bilaterally. Absent: respiratory distress, wheezes, rales, rhonchi, stridor Cardiovascular Exam: Present: normal rhythm, tachycardia, normal heart sounds. Absent: systolic murmur, diastolic murmur, rubs, gallop, clicks GI/Abdominal exam: Present: soft, normal bowel sounds. Absent: distended, tenderness, guarding, rebound, rigid Extremities exam: Present: normal inspection, full ROM, normal capillary refill. Absent: tenderness, pedal edema, joint swelling, calf tenderness Back exam: Present: normal inspection Neurological exam: Present: alert, oriented X3, CN II-XII intact. Absent: motor sensory deficit Psychiatric exam: Present: normal mood, flat affect Skin exam: Present: warm, dry, intact, normal color. Absent: rash Course Vital Signs 06/28/19 06/28/19 06/28/19 07:19 09:50 10:53 Temperature 98 F Pulse Rate 128 H 89 84 Respiratory 18 18 18 Rate Blood Pressure 187/125 109/72 151/93 O2 Sat by Pulse 96 98 98 Oximetry - Reevaluation(s) Reevaluation #1: 06/28/19 10:37 Patient is awake alert oriented 3 and did have a discussion with him and his family regarding the findings the patient is hesitant to be admitted to the hospital for rhabdomyolysis he is agreed to a another liter of IV fluids and redraw. Medical Decision Making - Medical Decision Making The patient had a repeat hydration and repeat check of his CK. He does have improvement is gotten much worse. I had a long session with patient family regarding his he will be admitted. I did discuss the case with Kylie for the SURFACE BOSS for Dr. perez. - Lab Data Result diagrams: 06/28/19 07:30 06/28/19 07:30 Lab Results 06/28/19 06/28/19 06/28/19 Range/Units 07:30 07:30 11:45 WBC 13.1 H (3.8-10.6) k/uL RBC 4.83 (4.30-5.90) m/uL Hgb 14.3 (13.0-17.5) gm/dL Hct 43.7 (39.0-53.0) % MCV 90.5 (80.0-100.0) fL MCH 29.6 (25.0-35.0) pg MCHC 32.7 (31.0-37.0) g/dL RDW 13.9 (11.5-15.5) % Plt Count 235 (150-450) k/uL Neutrophils % 56 % Lymphocytes % 35 % Monocytes % 4 % Eosinophils % 2 % Basophils % 1 % Neutrophils # 7.3 (1.3-7.7) k/uL Lymphocytes # 4.6 (1.0-4.8) k/uL Monocytes # 0.6 (0-1.0) k/uL Eosinophils # 0.3 (0-0.7) k/uL Basophils # 0.1 (0-0.2) k/uL Sodium 139 (137-145) mmol/L Potassium 3.7 (3.5-5.1) mmol/L Chloride 106 (98-107) mmol/L Carbon Dioxide 13 L (22-30) mmol/L Anion Gap 20 mmol/L BUN 6 L (9-20) mg/dL Creatinine 0.98 (0.66-1.25) mg/dL Est GFR (CKD-EPI)AfAm >90 (>60 ml/min/1.73 sqM) Est GFR (CKD-EPI)NonAf >90 (>60 ml/min/1.73 sqM) Glucose 119 H (74-99) mg/dL Calcium 9.5 (8.4-10.2) mg/dL Magnesium 2.0 (1.6-2.3) mg/dL Total Bilirubin 2.3 H (0.2-1.3) mg/dL AST 50 (17-59) U/L ALT 16 L (21-72) U/L Alkaline Phosphatase 77 (38-126) U/L Creatine Kinase 1015 H* 2926 H* (55-170) U/L Total Protein 8.0 (6.3-8.2) g/dL Albumin 4.5 (3.5-5.0) g/dL - EKG Data -: EKG Interpreted by Ga EKG shows normal: sinus rhythm (Sinus tachycardia rate of 105. Interval 146 QRS duration 86 QT since QTC 348/[id number]) Disposition Clinical Impression: Generalized seizure, Rhabdomyolysis, Seizure secondary to subtherapeutic anticonvulsant medication Disposition: ADMITTED IP TO THIS HOSP Condition: Fair Referrals: None,Stated [Primary Care Provider] - 1-2 days
[2019-06-28 07:48] LABS: Basophils # (A) 0.1 k/uL (0-0.2); Basophils % (A) 1 %; Eosinophils # (A) 0.3 k/uL (0-0.7); Eosinophils % (A) 2 %; HCT 43.7 % (39.0-53.0); HGB 14.3 gm/dL (13.0-17.5); Lymphocytes # (A) 4.6 k/uL (1.0-4.8); Lymphocytes % (A) 35 %; MCH 29.6 pg (25.0-35.0); MCHC 32.7 g/dL (31.0-37.0); MCV 90.5 fL (80.0-100.0); Mean Platelet Volume 6.4; Monocytes # (A) 0.6 k/uL (0-1.0); Monocytes % (A) 4 %; Neutrophils # (A) 7.3 k/uL (1.3-7.7); Neutrophils % (A) 56 %; Platelet Count 235 k/uL (150-450); RBC 4.83 m/uL (4.30-5.90); RDW 13.9 % (11.5-15.5); WBC 13.1 k/uL (3.8-10.6)
[2019-06-28 08:09] LABS: ALT 16 U/L (21-72); AST 50 U/L (17-59); African American GFR (CKD) >90 (>60 ml/min/1.73 sqM); Albumin 4.5 g/dL (3.5-5.0); Alkaline Phosphatase 77 U/L (38-126); Anion Gap 20 mmol/L; Blood Urea Nitrogen 6 mg/dL (9-20); Calcium 9.5 mg/dL (8.4-10.2); Carbon Dioxide 13 mmol/L (22-30); Chloride 106 mmol/L (98-107); Glucose 119 mg/dL (74-99); Potassium 3.7 mmol/L (3.5-5.1); Sodium 139 mmol/L (137-145); Total Bilirubin 2.3 mg/dL (0.2-1.3)
[2019-06-28 08:30] LABS: Creatine Kinase 1015 U/L (55-170)
[2019-06-28] MEDS ORDERED: NALOXONE 0.4 MG/ML 1 ML VIAL IV PRN (13:07)
[2019-06-28] MEDS ORDERED: SODIUM BICARB 8.4% 50 ML SYR (1 MEQ/ML) IV STA (13:09)
[2019-06-28] MEDS: SODIUM CHLORIDE 0.9% 1,000 ML IV SCH (14:57)
[2019-06-28] MEDS ORDERED: LORazepam 2 MG/ML INJ IV PRN ×3 (17:36)
[2019-06-28] MEDS ORDERED: ALPRAZolam 0.25 MG TAB PO PRN (17:36)
[2019-06-28] MEDS ORDERED: THIAMINE 100 MG/ML 2 ML VIAL IM STA (17:36)
[2019-06-28] MEDS ORDERED: HYDROcodone/APAP 5-325MG 1 EACH TAB PO PRN (17:36)
[2019-06-28] MEDS ORDERED: TEMAZEPAM 15 MG CAP PO PRN (17:36)
[2019-06-28] MEDS: cloNIDine HCL 0.1 MG TAB PO SCH ×2 (18:06→22:00)
[2019-06-28] MEDS: THIAMINE 100 MG TAB PO SCH (18:06)
[2019-06-28] MEDS: NICOTINE 14MG/24HR PATCH TRANSDERM SCH (18:07)
--- NOTE | 2019-06-28 20:08 | HP ---
HISTORY AND PHYSICAL DATE OF SERVICE: 06/28/2019 CHIEF COMPLAINT: Seizure disorder. HISTORY OF PRESENT ILLNESS: This 39-year-old gentleman with a past medical history of hypertension, seizure disorder, history of hernia repair, being followed by Dr. Dominguez in the outpatient setting, apparently ran out of seizure medication, and for about 2 weeks patient was not taking his seizure medications. Patientt had tonic-clonic seizures. Patient was taken to [facility] and admitted for further evaluation. Patient is unable to give any coherent history. Most of the history is taken from my discussion with staff and review of the chart. PAST MEDICAL HISTORY: 1. Hypertension. 2. Seizure disorder. 3. Low back pain. MEDICATIONS PRIOR TO ADMISSION: Keppra 1000 mg p.o. b.i.d. ALLERGIES: NONE. FAMILY HISTORY: History of CVA, TIA. SOCIAL HISTORY: History of smoking. History of THC. Occasional alcohol. REVIEW OF SYSTEMS: ENT: No diminished hearing. No diminished vision. CARDIOVASCULAR SYSTEM: No angina, palpitations. RESPIRATORY SYSTEM: No cough, hemoptysis. GI: No nausea, vomiting. : No dysuria or retention. NERVOUS SYSTEM: No numbness, weakness. Otherwise as mentioned earlier. ALLERGY/IMMUNOLOGY: No asthma, hayfever. MUSCULOSKELETAL: As mentioned earlier. HEMATOLOGY/ONCOLOGY: No history of anemia. ENDOCRINE: No history of diabetes, hypothyroidism. CONSTITUTIONAL: As mentioned earlier. DERMATOLOGY: Negative. RHEUMATOLOGY: Negative. PSYCHIATRY: As mentioned earlier. PHYSICAL EXAMINATION: Patient alert and oriented x3. Pulse 85, blood pressure 115/84, respiration 18, temperature 97.3, pulse ox 97% on room air. HEENT: Conjunctivae normal. Oral mucosa moist. NECK: No jugular venous distention. No carotid bruit. No lymph node enlargement. CARDIOVASCULAR SYSTEM: S1, S2 muffled. No S3. No S4. RESPIRATORY SYSTEM: Breath sounds diminished at the bases. No rhonchi. No crackles. ABDOMEN: Soft, non-tender. No mass palpable. LEGS: No edema. No swelling. NERVOUS SYSTEM: Higher functions as mentioned earlier. Moves all 4 limbs. No focal motor or sensory deficit. LYMPHATICS: No lymph node palpable in neck, axillae or groin. SKIN: No ulcer, rash, bleeding. JOINTS: No active deforming arthropathy. LABS: Labs at this time show WBC 13.1, hemoglobin 14.3. Glucose 119. Total bilirubin is 2.3. Creatine kinase 1015. ASSESSMENT: 1. Acute generalized tonic tonic-clonic seizures and breakthrough seizures. 2. History of noncompliance. 3. Seizure disorder. 4. Acute rhabdomyolysis. 5. Increased total bilirubin. 6. Increased white count, possibly reactive. 7. History of hypertension. 8. History of hernia repair. 9. History of nicotine dependence. 10.History of ethanol. RECOMMENDATIONS AND DISCUSSION: In this 39-year-old gentleman who presented with multiple medical problems, we will monitor the patient closely, continue the current management, continue symptomatic treatment. IV Keppra has been given. Neurology consultation. Otherwise, I would also recommend resuming the home medication. Initiate clonidine. ETOH withdrawal precautions. Importance of compliance was stressed with the patient. Prognosis guarded because of multiple complex medical issues. IV fluids. Monitor creatine kinase closely. Prognosis guarded. Further recommendations to follow. A copy of this dictation is being forwarded to Dr. Dominguez, who is the primary physician. Prognosis extremely guarded because of multiple complex medical issues, as listed above. MMODL / IJN: [id number] / MTDD
[2019-06-28] MEDS: levETIRAcetam 500 MG TAB PO SCH (20:16)
[2019-06-28] MEDS: HEPARIN SODIUM,PORCINE 5,000 UNIT/ML 1 ML VIAL SQ SCH (20:17)
[2019-06-29] MEDS: SODIUM CHLORIDE 0.9% 1,000 ML IV SCH ×4 (01:00→16:32)
[2019-06-29 03:05] LABS: Appearance,Urine Clear (Clear); Bilirubin,Urine Negative (Negative); Blood,Urine Negative (Negative); Color,Urine Yellow; Glucose,Urine (UA) Negative (Negative); Ketones,Urine Negative (Negative); Leukocyte Esterase,Urine Negative (Negative); Nitrite,Urine Negative (Negative); PH, Urine 7.5 (5.0-8.0); Protein,Urine Negative (Negative); Urobilinogen,Urine <2.0 mg/dL (<2.0)
[2019-06-29 03:27] LABS: Amphetamine Screen,Urine Not Detected (NotDetected); Barbiturate Screen,Urine Not Detected (NotDetected); Benzodiazepines Screen,Urine Not Detected (NotDetected); Cocaine Screen,Urine Not Detected (NotDetected); Methadone Screen, Urine Not Detected (NotDetected); Opiate Screen,Urine Not Detected (NotDetected); Oxycodone Screen, Urine Not Detected (NotDetected); Phencyclidine Screen,Urine Not Detected (NotDetected); Tricyclic Antidepressant,Urine Not Detected (NotDetected); Urn Cannabinoid Scrn Detected (NotDetected)
[2019-06-29] MEDS: cloNIDine HCL 0.1 MG TAB PO PRN (04:42)
[2019-06-29] MEDS: THIAMINE 100 MG TAB PO SCH ×2 (07:46→16:32)
[2019-06-29] MEDS: cloNIDine HCL 0.1 MG TAB PO SCH ×3 (07:46→21:24)
[2019-06-29] MEDS: levETIRAcetam 500 MG TAB PO SCH ×2 (07:46→21:24)
[2019-06-29] MEDS: HEPARIN SODIUM,PORCINE 5,000 UNIT/ML 1 ML VIAL SQ SCH ×2 (07:46→21:25)
[2019-06-29] MEDS: NICOTINE 14MG/24HR PATCH TRANSDERM SCH (07:47)
[2019-06-29 07:49] LABS: Basophils # (A) 0.1 k/uL (0-0.2); Basophils % (A) 1 %; Eosinophils # (A) 0.1 k/uL (0-0.7); Eosinophils % (A) 2 %; HCT 38.5 % (39.0-53.0); HGB 12.9 gm/dL (13.0-17.5); Lymphocytes # (A) 2.7 k/uL (1.0-4.8); Lymphocytes % (A) 35 %; MCHC 33.5 g/dL (31.0-37.0); MCV 89.4 fL (80.0-100.0); Mean Platelet Volume 6.8; Monocytes # (A) 0.4 k/uL (0-1.0); Monocytes % (A) 6 %; Neutrophils # (A) 4.1 k/uL (1.3-7.7); Neutrophils % (A) 54 %; Platelet Count 209 k/uL (150-450); RBC 4.31 m/uL (4.30-5.90); WBC 7.5 k/uL (3.8-10.6)
[2019-06-29 08:11] LABS: African American GFR (CKD) >90 (>60 ml/min/1.73 sqM); Anion Gap 7 mmol/L; Blood Urea Nitrogen 6 mg/dL (9-20); Calcium 8.5 mg/dL (8.4-10.2); Carbon Dioxide 24 mmol/L (22-30); Chloride 107 mmol/L (98-107); Glucose 90 mg/dL (74-99); Potassium 3.9 mmol/L (3.5-5.1); Sodium 138 mmol/L (137-145)
[2019-06-29 09:03] LABS: Creatine Kinase 6035 U/L (55-170)
--- NOTE | 2019-06-29 11:41 | P.CNNES ---
History of Present Illness Consult date: 06/29/19 Requesting physician: Meka Mccormick Reason for Consult: Seizure Chief complaint: Ran out of seizure med, had a seizure History of Present Illness: This is a 39 RH male h/o HTN and seizure disorder. He did have several head injuries in the past and started having seizures in 2011, typically well co ntrolled on Keppra 1g po bid without side effects. He was discharged from Dr. Mcfadden's practice for having missed too many appointments and does not have a local neurologist. He also ran out of his AED, and had a witnessed 7-minute GTC seizure with tongue biting but no bowel/bladder incontinence. There was post- ictal confusion. He was restarted on LEV this morning. Primary team also started him on EtOH precautions though patient denies significant alcohol use currently. No tremors, diaphoresis, psychosis or hemodynamic instability while in-house. No other neuro c/o. Review of Systems 14-point ROS performed and as per HPI. Neurologically, patient denies other epis odes of decreased level or loss of consciousness, changes in vision, diplopia, amaurosis, changes in hearing, facial droop, ptosis, vertigo, hearing loss, tinnitus, dysarthria, dysphagia, aphasia, other focal numbness/weakness not mentioned above, tremors, bowel/bladder incontinence or ataxia. Past Medical History Past Medical History: Hypertension, Seizure Disorder Additional Past Medical History / Comment(s): Last seizure 06/28/19, occasional low back pain. History of Any Multi-Drug Resistant Organisms: None Reported Past Surgical History: Hernia Repair Additional Past Surgical History / Comment(s): R inguinal hernia repair. Past Anesthesia/Blood Transfusion Reactions: No Reported Reaction Additional Past Anesthesia/Blood Transfusion Reaction / Comment(s): Pt has never had surgery/anesthesia Past Psychological History: No Psychological Hx Reported Additional Psychological History / Comment(s): Pt resides with his significant other. He does not drive, his significant other drives. He is currently not employed. Smoking Status: Current every day smoker Past Alcohol Use History: Daily Additional Past Alcohol Use History / Comment(s): Pt states he starte smoking at age 17 and is a 1ppd smoker. He states he drinks about 4 beers a day. Past Drug Use History: None Reported Additional Drug Use History / Comment(s): Pt states he smokes 2-3 joints daily - Past Family History Father Family Medical History: CVA/TIA Additional Family Medical History / Comment(s): Father is in his 60's Mother Family Medical History: Diabetes Mellitus, Hypertension Medications and Allergies Home Medications Medication Instructions Recorded Confirmed Type levETIRAcetam [Keppra] 1,000 mg PO BID 10/21/17 06/28/19 History Allergies Allergy/AdvReac Type Severity Reaction Status Date / Time No Known Allergies Allergy Verified 06/28/19 07:19 Physical Examination - Vital Signs Vital Signs: Vital Signs Temp Pulse Pulse Resp BP BP BP 06/29/19 05:00 98.0 F 78 20 154/100 146/95 06/28/19 21:57 83 144/94 06/28/19 20:05 97.3 F L 84 18 141/90 06/28/19 19:03 175/112 178/125 06/28/19 18:03 75 169/111 174/108 06/28/19 14:50 97.3 F L 85 18 159/84 06/28/19 13:00 88 18 149/93 Pulse Ox 06/29/19 05:00 98 06/28/19 21:57 99 06/28/19 20:05 99 06/28/19 19:03 06/28/19 18:03 98 06/28/19 14:50 97 06/28/19 13:00 97 Intake and Output 06/28/19 06/29/19 06/29/19 22:59 06:59 14:59 Intake Total 300 800 Balance 300 800 Intake: Intake, IV Titration 300 800 Amount Sodium Chloride 0.9% 1, 300 800 000 ml @ 150 mls/hr IV . Q6H40M [facility] Rx#:[id number] Other: Voiding Method Toilet Toilet Toilet # Voids 3 Gen NAD Pleasant and cooperative HEENT NCAT Sclera without icterus +Tongue lac no active bleeding o/w O/P clear Neck Supple No carotid bruit Cor RRR no m/r/g Lungs CTAB Abd Soft NTND +BS Ext Warm to touch No edema Neuro MS A+Ox4 Normal fluency Able to follow all commands CN PERRL VFF no APD EOMI no nystagmus or GILBERT No facial asymmetry [place]'s symmetric Hearing intact to normal voice bilaterally Speech not dysarthric Equal elevation of palate Tongue midline Sym shrug and SCM bilaterally Motor Normal bulk/tone No pronator drift or tremors Strength 5/5 sym throughout Sens Intact to LT x4 No neglect or extinction Coord No dysmetria on FTN bilaterally DTRs 2+/4 sym throughout Toes downgoing bilaterally No clonus at achilles Gait Deferred Results - Laboratory Findings CBC and BMP: 06/29/19 06:49 06/29/19 06:49 Abnormal Lab Findings: Abnormal Labs 06/28/19 06/28/19 06/28/19 07:30 07:30 11:45 WBC 13.1 H Hgb Hct Carbon Dioxide 13 L BUN 6 L Glucose 119 H Total Bilirubin 2.3 H ALT 16 L Creatine Kinase 1015 H* 2926 H* U Marijuana (THC) Screen 06/29/19 06/29/19 06/29/19 02:50 06:49 06:49 WBC Hgb 12.9 L Hct 38.5 L Carbon Dioxide BUN 6 L Glucose Total Bilirubin ALT Creatine Kinase 6035 H* U Marijuana (THC) Screen Detected H Assessment and Plan Assessment: Seizure disorder with breakthrough seizure, most likely due to medication non- compliance Plan: -LEV restarted at 1g po q12h -Check EEG -Seizure and EtOH W/D precautions -Thiamine -Patient does not drive. He should refrain from any activity that may endanger patient and/or others should he have recurrent seizure. Patient voices under standing -If patient remains seizure-free x 24 hours, he may be discharged from acute neuro standpoint. He needs outpatient neuro follow-up. Please print out list of local neurologists for patient prior to discharge -d/w patient in detail. All questions answered -Neurology will be available again on 07/02/19. Thank you for this consultation. Please call with ?. Time with Patient: Greater than 30 (Time spent in direct patient care, greater than 50% of which was spent in [id number] counseling and coordination of care: 70 minutes)
--- NOTE | 2019-06-29 15:48 | P.PN ---
Subjective Progress Note Date: 06/29/19 Principal diagnosis: Generalized tonic-clonic seizure; noncompliance with meds 39 RH male h/o HTN and seizure disorder. He did have several head injuries in the past and started having seizures in 2011, typically well controlled on Keppra 1g po bid without side effects. He was discharged from Dr. Mcfadden's practice for having missed too many appointments and does not have a local neurologist. He also ran out of his AED, and had a witnessed 7-minute generalized tonic-clonic seizure with tongue biting but no bowel/bladder incontinence. There was post-ictal confusion. He was restarted on Keppra this morning. Patient has also started on EtOH precautions though patient denies significant alcohol use currently. Objective - Vital Signs Vital signs: Vital Signs Temp 98.0 F 06/29/19 05:00 Pulse 78 06/29/19 05:00 Resp 20 06/29/19 05:00 BP 146/95 06/29/19 05:00 Pulse Ox 98 06/29/19 05:00 Intake & Output 06/28/19 06/29/19 06/29/19 18:59 06:59 18:59 Intake Total 1100 Balance 1100 Weight 63.503 kg Intake: Intake, IV Titration 1100 Amount Sodium Chloride 0.9% 1, 1100 000 ml @ 150 mls/hr IV . Q6H40M [facility] Rx#:[id number] Other: Voiding Method Toilet Toilet Toilet # Voids 3 - Exam PHYSICAL EXAMINATION: GENERAL: The patient is alert and oriented x3, not in any acute distress. Well developed, well nourished. HEENT: Pupils are round and equally reacting to light. EOMI. No scleral icterus. No conjunctival pallor. Normocephalic, atraumatic. No pharyngeal erythema. No thyromegaly. CARDIOVASCULAR: S1 and S2 present. No murmurs, rubs, or gallops. PULMONARY: Chest is clear to auscultation, no wheezing or crackles. ABDOMEN: Soft, nontender, nondistended, normoactive bowel sounds. No palpable organomegaly. MUSCULOSKELETAL: No joint swelling or deformity. EXTREMITIES: No cyanosis, clubbing, or pedal edema. NEUROLOGICAL: Gross neurological examination did not reveal any focal deficits. SKIN: No rashes. - Labs CBC & Chem 7: 06/29/19 06:49 06/29/19 06:49 Labs: Abnormal Lab Results - Last 24 Hours (Table) 06/28/19 06/29/19 06/29/19 Range/Units 11:45 02:50 06:49 Hgb 12.9 L (13.0-17.5) gm/dL Hct 38.5 L (39.0-53.0) % BUN (9-20) mg/dL Creatine Kinase 2926 H* (55-170) U/L U Marijuana (THC) Screen Detected H (NotDetected) 06/29/19 Range/Units 06:49 Hgb (13.0-17.5) gm/dL Hct (39.0-53.0) % BUN 6 L (9-20) mg/dL Creatine Kinase 6035 H* (55-170) U/L U Marijuana (THC) Screen (NotDetected) Assessment and Plan Assessment: 1. Seizure disorder with breakthrough seizures; possible noncompliance - Patient restarted on Keppra 1 g by mouth every 12 hours; neurology is following and recommending an EEG - Patient remains on seizure and EtOH withdrawal precautions - Continue with thiamine 100 mg by mouth daily - Per neurology patient needs to refrain from driving and any activity that might endanger patient and others - Patient could be discharged home if remains seizure-free for more than 24 hours 2. Rhabdomyolysis - Repeat CPK is at 6035; we will continue with IV fluid hydration and continue to monitor strict GILBERT's with renal function and electrolytes; monitor CPK levels 3. Hypertension; clonidine 0.1 mg by mouth 3 times a day 4. Substance abuse; case management consult for discharge planning and resources at time of discharge 5. DVT prophylaxis; SCDs/early ambulation CODE STATUS; full code Time with Patient: Greater than 30
--- NOTE | 2019-06-29 16:42 | P.PN ---
Progress Note - Text Progress Note Date: 06/29/19 EEG is normal. Dictation was done pending office manager executive assistant. If patient remains seizure-free x 24 hours and does not exhibit S+S EtOH W/D, may discharge from acute neuro standpoint and plan for outpatient neuro follow-up in 1-2 weeks. Neurology will be available again on 07/02/19. Thank you.
--- NOTE | 2019-06-29 17:12 | EEG ---
ELECTROENCEPHALOGRAM REPORT DATE OF SERVICE: 06/29/2019. CLINICAL PROBLEM: Seizure disorder with breakthrough seizure in the setting of medication noncompliance. Also history of alcohol abuse. EEG was requested to rule out epileptic activity. MEDICATIONS: Clonidine, Keppra, thiamine, lorazepam p.r.n., alprazolam p.r.n., temazepam p.r.n. TYPE OF RECORDING: Bedside tracing using the 10-20 international electrode placement system. No sedation was given prior to the beginning of this recording. FINDINGS: The background of this tracing is remarkable for low voltage in general. There is a symmetric alpha rhythm of 8-10 Hz seen in the posterior background. The alpha rhythm attenuates on eye opening and returns upon eye closure. There are intermittent EKG pulse artifacts as well as EMG artifacts that correspond to patient's movements. Photic stimulation does not elicit a driving response. Hyperventilation does lead to occasional delta slowing. Neither provocative maneuver has elicited epileptiform discharges. There is no definitive sleep architecture seen. There is no background asymmetry, ictal or interictal patterns appreciated. IMPRESSION: This is a normal awake electroencephalogram without background asymmetry or epileptiform discharges. Clinical correlation is advised. MMODL / IJN: [id number] / MTDD
[2019-06-30] MEDS: SODIUM CHLORIDE 0.9% 1,000 ML IV SCH ×5 (00:04→23:40)
[2019-06-30 07:37] LABS: Basophils # (A) 0.1 k/uL (0-0.2); Basophils % (A) 1 %; Eosinophils # (A) 0.1 k/uL (0-0.7); Eosinophils % (A) 2 %; HCT 40.3 % (39.0-53.0); HGB 13.5 gm/dL (13.0-17.5); Lymphocytes # (A) 2.6 k/uL (1.0-4.8); Lymphocytes % (A) 32 %; MCH 29.8 pg (25.0-35.0); MCHC 33.5 g/dL (31.0-37.0); Mean Platelet Volume 6.9; Monocytes # (A) 0.4 k/uL (0-1.0); Monocytes % (A) 6 %; Neutrophils # (A) 4.6 k/uL (1.3-7.7); Neutrophils % (A) 57 %; Platelet Count 227 k/uL (150-450); RBC 4.52 m/uL (4.30-5.90); RDW 15.4 % (11.5-15.5); WBC 7.9 k/uL (3.8-10.6)
[2019-06-30 08:02] LABS: African American GFR (CKD) >90 (>60 ml/min/1.73 sqM); Anion Gap 7 mmol/L; Blood Urea Nitrogen 7 mg/dL (9-20); Calcium 9.1 mg/dL (8.4-10.2); Carbon Dioxide 25 mmol/L (22-30); Chloride 107 mmol/L (98-107); Glucose 92 mg/dL (74-99); Sodium 139 mmol/L (137-145)
[2019-06-30 08:21] LABS: Creatine Kinase 4804 U/L (55-170)
[2019-06-30] MEDS: HEPARIN SODIUM,PORCINE 5,000 UNIT/ML 1 ML VIAL SQ SCH ×2 (09:23→20:53)
[2019-06-30] MEDS: cloNIDine HCL 0.1 MG TAB PO SCH ×3 (09:23→20:53)
[2019-06-30] MEDS: levETIRAcetam 500 MG TAB PO SCH ×2 (09:23→20:53)
[2019-06-30] MEDS: NICOTINE 14MG/24HR PATCH TRANSDERM SCH (09:23)
[2019-06-30] MEDS: THIAMINE 100 MG TAB PO SCH ×2 (09:23→17:50)
--- NOTE | 2019-06-30 11:47 | P.PN ---
Subjective Progress Note Date: 06/30/19 Principal diagnosis: Generalized tonic-clonic seizure; noncompliance with meds 39 yo male h/o HTN and seizure disorder. He did have several head injuries in the past and started having seizures in 2011, typically well controlled on Keppra 1g po bid without side effects. He was discharged from Dr. Mcfadden's practice for having missed too many appointments and does not have a local neurologist. He also ran out of his AED, and had a witnessed 7-minute generalized tonic-clonic seizure with tongue biting but no bowel/bladder incontinence. There was post-ictal confusion. He was restarted on Keppra this morning. Patient has also started on EtOH precautions though patient denies significant alcohol use currently. 06/30/2019 Patient seen and evaluated in the room at bedside; wants to be discharged home Vital stable with a temperature of 96.2, pulse 68, respirations 16 and blood pressure 144/88; SpO2 of 100% on room air Lab review shows essentially normal CBC and unremarkable basic metabolic panel; CPK remains elevated at 4804 but slowly trending down from 6035 yesterday We will continue with IV fluid hydration; Keppra has been switched to oral form as 100 mg every 12 hours Possible discharge in next 24 hours if remains stable Objective - Vital Signs Vital signs: Vital Signs Temp 96.2 F L 06/30/19 05:00 Pulse 68 06/30/19 05:00 Resp 16 06/30/19 05:00 BP 144/88 06/30/19 05:00 Pulse Ox 100 06/30/19 05:00 Intake & Output 06/29/19 06/30/19 06/30/19 18:59 06:59 18:59 Intake Total 1400 1250 Balance 1400 1250 Intake: Intake, IV Titration 800 Amount Sodium Chloride 0.9% 1, 800 000 ml @ 150 mls/hr IV . Q6H40M [facility] Rx#:[id number] Oral 600 1250 Other: Voiding Method Toilet Toilet # Voids 3 2 - Exam PHYSICAL EXAMINATION: GENERAL: The patient is alert and oriented x3, not in any acute distress. Well developed, well nourished. HEENT: Pupils are round and equally reacting to light. EOMI. No scleral icterus. No conjunctival pallor. Normocephalic, atraumatic. No pharyngeal erythema. No thyromegaly. CARDIOVASCULAR: S1 and S2 present. No murmurs, rubs, or gallops. PULMONARY: Chest is clear to auscultation, no wheezing or crackles. ABDOMEN: Soft, nontender, nondistended, normoactive bowel sounds. No palpable organomegaly. MUSCULOSKELETAL: No joint swelling or deformity. EXTREMITIES: No cyanosis, clubbing, or pedal edema. NEUROLOGICAL: Gross neurological examination did not reveal any focal deficits. SKIN: No rashes. - Labs CBC & Chem 7: 06/30/19 07:10 06/30/19 07:10 Labs: Abnormal Lab Results - Last 24 Hours (Table) 06/29/19 06/29/19 Range/Units 06:49 06:49 Hgb 12.9 L (13.0-17.5) gm/dL Hct 38.5 L (39.0-53.0) % BUN 6 L (9-20) mg/dL Creatine Kinase 6035 H* (55-170) U/L Assessment and Plan Assessment: 1. Seizure disorder with breakthrough seizures; possible noncompliance - Patient restarted on Keppra 1 g by mouth every 12 hours; neurology is f ollowing and recommending an EEG - Patient remains on seizure and EtOH withdrawal precautions - Continue with thiamine 100 mg by mouth daily - Per neurology patient needs to refrain from driving and any activity that might endanger patient and others - Patient could be discharged home if remains seizure-free for more than 24 hours 2. Rhabdomyolysis - Repeat CPK is at 6035; we will continue with IV fluid hydration and continue to monitor strict GILBERT's with renal function and electrolytes; monitor CPK levels 3. Hypertension; clonidine 0.1 mg by mouth 3 times a day 4. Substance abuse; case management consult for discharge planning and resources at time of discharge 5. DVT prophylaxis; SCDs/early ambulation CODE STATUS; full code Time with Patient: Greater than 30
[2019-07-01] MEDS: cloNIDine HCL 0.1 MG TAB PO PRN ×2 (04:46→12:07)
[2019-07-01] MEDS: SODIUM CHLORIDE 0.9% 1,000 ML IV SCH (06:26)
[2019-07-01 07:40] LABS: Basophils # (A) 0.1 k/uL (0-0.2); Basophils % (A) 1 %; Eosinophils # (A) 0.1 k/uL (0-0.7); Eosinophils % (A) 2 %; HCT 41.9 % (39.0-53.0); HGB 14.3 gm/dL (13.0-17.5); Lymphocytes % (A) 27 %; MCH 30.8 pg (25.0-35.0); MCHC 34.1 g/dL (31.0-37.0); MCV 90.2 fL (80.0-100.0); Mean Platelet Volume 6.6; Monocytes # (A) 0.4 k/uL (0-1.0); Monocytes % (A) 5 %; Neutrophils # (A) 4.7 k/uL (1.3-7.7); Neutrophils % (A) 64 %; Platelet Count 216 k/uL (150-450); RBC 4.64 m/uL (4.30-5.90); RDW 14.1 % (11.5-15.5); WBC 7.3 k/uL (3.8-10.6)
[2019-07-01] MEDS: HEPARIN SODIUM,PORCINE 5,000 UNIT/ML 1 ML VIAL SQ SCH (07:53)
[2019-07-01] MEDS: levETIRAcetam 500 MG TAB PO SCH (07:53)
[2019-07-01] MEDS: THIAMINE 100 MG TAB PO SCH (07:53)
[2019-07-01] MEDS: cloNIDine HCL 0.1 MG TAB PO SCH (07:54)
[2019-07-01] MEDS: NICOTINE 14MG/24HR PATCH TRANSDERM SCH (07:54)
[2019-07-01 08:01] LABS: African American GFR (CKD) >90 (>60 ml/min/1.73 sqM); Anion Gap 7 mmol/L; Blood Urea Nitrogen 8 mg/dL (9-20); Calcium 9.1 mg/dL (8.4-10.2); Carbon Dioxide 26 mmol/L (22-30); Chloride 107 mmol/L (98-107); Glucose 101 mg/dL (74-99); Potassium 4.2 mmol/L (3.5-5.1); Sodium 140 mmol/L (137-145)
[2019-07-01 08:13] LABS: Creatine Kinase 2230 U/L (55-170)
--- NOTE | 2019-07-01 10:34 | P.DS ---
Providers Date of admission: 06/28/19 13:07 Expected date of discharge: 07/01/19 Attending physician: Zack Rodríguez MD Consults: 06/29/19 09:11 Consult Physician Routine Consulting Provider: Ayla Hilton Consult Reason/Comments: seizure Do you want consulting provider notified?: Yes Primary care physician: Stated None Hospital Course: 39 yo male h/o HTN and seizure disorder. He did have several head injuries in the past and started having seizures in 2011, typically well controlled on Keppra 1g po bid without side effects. He was discharged from Dr. Mcfadden's practice for having missed too many appointments and does not have a local neurologist. He also ran out of his AED, and had a witnessed 7-minute generalized tonic-clonic seizure with tongue biting but no bowel/bladder incontinence. There was post-ictal confusion. He was restarted on Keppra this morning. Patient has also started on EtOH precautions though patient denies significant alcohol use currently. 06/30/2019 Patient seen and evaluated in the room at bedside; wants to be discharged home Vital stable with a temperature of 96.2, pulse 68, respirations 16 and blood pressure 144/88; SpO2 of 100% on room air Lab review shows essentially normal CBC and unremarkable basic metabolic panel; CPK remains elevated at 4804 but slowly trending down from 6035 yesterday We will continue with IV fluid hydration; Keppra has been switched to oral form as 100 mg every 12 hours Possible discharge in next 24 hours if remains stable 07/01/2019; labs are reviewed and continued to improve; patient is advised increased fluid intake for next 48 hours and follow-up with PCP for repeat blood work; patient will be discharged on Keppra and clonidine for improved blood pressure control Patient Condition at Discharge: Fair Plan - Discharge Summary Discharge Rx Participant: No New Discharge Prescriptions: New cloNIDine HCL [Catapres] 0.1 mg PO TID #90 tab levETIRAcetam [Keppra] 1,000 mg PO Q12HR #60 tab Thiamine [Vitamin B-1] 100 mg PO BID-W/MEALS tab Discontinued levETIRAcetam [Keppra] 1,000 mg PO BID Discharge Medication List Thiamine [Vitamin B-1] 100 mg PO BID-W/MEALS tab 07/01/19 [Rx] cloNIDine HCL [Catapres] 0.1 mg PO TID #90 tab 07/01/19 [Rx] levETIRAcetam [Keppra] 1,000 mg PO Q12HR #60 tab 07/01/19 [Rx] Follow up Appointment(s)/Referral(s): None,Stated [Primary Care Provider] - 1-2 days Discharge Disposition: HOME SELF-CARE
[2019-07-01 12:34] VITALS: BP 158/103; PULSE 59; RESP 17; TEMP 98.1
== END 2019-07-01 12:51 | disposition home or self-care (01) | DRG 101 ==
LOC: EC 07:14 → 3NMEDONC 13:07
PROVIDERS: ADMIT Internal Medicine; ATTEND Internal Medicine
DX: G40.409 Other generalized epilepsy and epileptic syndromes, not intractable, without status epilepticus (principal); M62.82 Rhabdomyolysis; Z91.19 Patient's noncompliance with other medical treatment and regimen; T42.76XA Underdosing of unspecified antiepileptic and sedative-hypnotic drugs, initial encounter; Z91.128 Patient's intentional underdosing of medication regimen for other reason; I10 Essential (primary) hypertension; M54.5 Low back pain; Z82.3 Family history of stroke; E80.6 Other disorders of bilirubin metabolism; F17.210 Nicotine dependence, cigarettes, uncomplicated; Z83.3 Family history of diabetes mellitus; Z82.49 Family history of ischemic heart disease and other diseases of the circulatory system
CPT/HCPCS: 36415; 80048; 80053; 80306; 81003; 82550; 83735; 85025; 93005; 95816; 96365; 96366; 96375; 99285

== ENCOUNTER 2021-01-22 02:40 | Inpatient (IN) | payer OTHER ==
[2021-01-22 03:22] LABS: Basophils # (A) 0.1 k/uL (0-0.2); Basophils % (A) 1 %; Eosinophils # (A) 0.2 k/uL (0-0.7); Eosinophils % (A) 1 %; HCT 51.3 % (39.0-53.0); HGB 15.3 gm/dL (13.0-17.5); Hypochromasia Marked; Lymphocytes # (A) 4.8 k/uL (1.0-4.8); Lymphocytes % (A) 30 %; MCH 30.7 pg (25.0-35.0); MCHC 29.9 g/dL (31.0-37.0); MCV 102.6 fL (80.0-100.0); Macrocytosis Slight; Mean Platelet Volume 7.8; Monocytes # (A) 1.1 k/uL (0-1.0); Monocytes % (A) 7 %; Neutrophils # (A) 9.2 k/uL (1.3-7.7); Neutrophils % (A) 58 %; Platelet Count 208 k/uL (150-450); RDW 13.7 % (11.5-15.5); WBC 15.7 k/uL (3.8-10.6)
--- NOTE | 2021-01-22 03:29 | ED ---
Seizure HPI - General Chief Complaint: Seizure Stated Complaint: Seizure Time Seen by Provider: 01/22/21 02:40 Source: EMS Mode of arrival: EMS Limitations: altered mental status - History of Present Illness Initial Comments: Patient is a 40-year-old male with past medical history of seizure disorder who presents emergency Department with reported multiple seizures. Significant other is at bedside and helps provide history. States that the patient has not had a seizure in 2 years. He is on Vimpat for her seizure control. Does not see neurologist. Medication as prescribed by his primary care doctor. She is unsure if he is taking his medications. Reports that he had 3 seizures at home and this is when she called EMS. Patient had an additional seizure en route to the hospital. Seizure only lasted approximately 30 seconds. Patient had an episode of urinary incontinence. They drop 5 mg of Versed however the seizure stopped before they administered it. Patient does arrive to the emergency department and upon placing the patient the room the patient has a fifth seizure. No known trauma. No recent illnesses. No other alleviating, p recipitating or modifying factors - Related Data Home Medications Medication Instructions Recorded Confirmed Lacosamide [Vimpat] 100 mg PO BID 01/22/21 01/22/21 amLODIPine [Norvasc] 10 mg PO DAILY 01/22/21 01/22/21 levETIRAcetam [Keppra] 1,000 mg PO BID 01/22/21 01/22/21 Previous Rx's Medication Instructions Recorded cloNIDine HCL [Catapres] 0.1 mg PO TID #90 tab 07/01/19 Cyanocobalamin [Vitamin B-12] 1,000 mcg PO DAILY tab 01/23/21 Folic Acid 1 mg PO DAILY tab 01/23/21 Allergies Allergy/AdvReac Type Severity Reaction Status Date / Time No Known Allergies Allergy Verified 01/22/21 09:17 Review of Systems ROS Statement: Those systems with pertinent positive or pertinent negative responses have been documented in the HPI. ROS Other: All systems not noted in ROS Statement are negative. Past Medical History Past Medical History: Hypertension, Seizure Disorder Additional Past Medical History / Comment(s): Last seizure 06/28/19, occasional low back pain. History of Any Multi-Drug Resistant Organisms: None Reported Past Surgical History: Hernia Repair Additional Past Surgical History / Comment(s): R inguinal hernia repair. Past Anesthesia/Blood Transfusion Reactions: No Reported Reaction Additional Past Anesthesia/Blood Transfusion Reaction / Comment(s): Pt has never had surgery/anesthesia Past Psychological History: No Psychological Hx Reported Past Alcohol Use History: Daily Past Drug Use History: None Reported - Past Family History Father Family Medical History: CVA/TIA Additional Family Medical History / Comment(s): Father is in his 60's Mother Family Medical History: Diabetes Mellitus, Hypertension General Exam Limitations: altered mental status General appearance: obtunded Head exam: Present: atraumatic, normocephalic, normal inspection Pupils: Present: mydriatic ENT exam: Present: normal exam, mucous membranes moist Neck exam: Present: normal inspection. Absent: tenderness, meningismus, lymphadenopathy Respiratory exam: Present: normal lung sounds bilaterally. Absent: respiratory distress, wheezes, rales, rhonchi, stridor Cardiovascular Exam: Present: normal rhythm, tachycardia GI/Abdominal exam: Present: soft, normal bowel sounds. Absent: distended, tend erness, guarding, rebound, rigid Neurological exam: Present: altered (post ictal) Course Vital Signs 01/22/21 01/22/21 01/22/21 02:41 04:07 05:03 Temperature 98.6 F Pulse Rate 151 H 129 H 117 H Respiratory 20 20 20 Rate Blood Pressure 173/79 167/117 177/120 O2 Sat by Pulse 93 L 96 98 Oximetry 01/22/21 01/22/21 01/22/21 06:32 07:16 09:37 Temperature 100 F H 99.7 F H Pulse Rate 99 106 H 99 Respiratory 16 16 18 Rate Blood Pressure 140/96 152/104 157/107 O2 Sat by Pulse 96 97 97 Oximetry 01/22/21 01/22/21 01/22/21 10:47 11:42 12:47 Temperature 99.1 F Pulse Rate 101 H 86 92 Respiratory 18 18 Rate Blood Pressure 155/106 145/100 155/100 O2 Sat by Pulse 98 95 Oximetry 01/22/21 13:40 Temperature 99 F Pulse Rate 92 Respiratory 18 Rate Blood Pressure 137/96 O2 Sat by Pulse 96 Oximetry Medical Decision Making - Medical Decision Making Upon arrival patient is placed in room 1. He is administered 5 mg of Versed as he is actively seizing. Laboratory studies are obtained. Chest x-ray was performed. Laboratory studies demonstrate a white count of 15.7. CO2 less than 5. Lactic acid greater than 24. Patient does have elevated liver enzymes. CK 702. EDS positive for cocaine and marijuana. She does arouse after several hours in the emergency department. Patient actively begins having episodes of emesis. He is given 4 mg of Zofran. Discussed the patient's care further with his significant other. Did recommend admission due to the amount of seizures at the patient has had. Patient did agree to this. He is currently awaiting a bed on the floor. I spoke with [place] from [facility] who accepted admission. Due to the lactic being above 8, I paged Dr. Willis. - Lab Data Result diagrams: 01/23/21 06:19 01/23/21 06:19 Lab Results 01/22/21 01/22/21 01/22/21 Range/Units 02:49 02:53 02:53 WBC 15.7 H (3.8-10.6) k/uL RBC 5.00 (4.30-5.90) m/uL Hgb 15.3 (13.0-17.5) gm/dL Hct 51.3 (39.0-53.0) % MCV 102.6 H (80.0-100.0) fL MCH 30.7 (25.0-35.0) pg MCHC 29.9 L (31.0-37.0) g/dL RDW 13.7 (11.5-15.5) % Plt Count 208 (150-450) k/uL MPV 7.8 Neutrophils % 58 % Lymphocytes % 30 % Monocytes % 7 % Eosinophils % 1 % Basophils % 1 % Neutrophils # 9.2 H (1.3-7.7) k/uL Lymphocytes # 4.8 (1.0-4.8) k/uL Monocytes # 1.1 H (0-1.0) k/uL Eosinophils # 0.2 (0-0.7) k/uL Basophils # 0.1 (0-0.2) k/uL Hypochromasia Marked Macrocytosis Slight Sodium 142 (137-145) mmol/L Potassium 3.9 (3.5-5.1) mmol/L Chloride 101 (98-107) mmol/L Carbon Dioxide <5 L* (22-30) mmol/L Anion Gap mmol/L BUN 5 L (9-20) mg/dL Creatinine 1.38 H (0.66-1.25) mg/dL Est GFR (CKD-EPI)AfAm 74 (>60 ml/min/1.73 sqM) Est GFR (CKD-EPI)NonAf 64 (>60 ml/min/1.73 sqM) Glucose 202 H (74-99) mg/dL Lactic Ac Sepsis Rflx Plasma Lactic Acid Maury >24.0 H* (0.7-2.0) mmol/L Calcium 10.7 H (8.4-10.2) mg/dL Total Bilirubin 1.3 (0.2-1.3) mg/dL AST 154 H (17-59) U/L ALT 57 H (4-49) U/L Alkaline Phosphatase 161 H (38-126) U/L Creatine Kinase 702 H (55-170) U/L Total Protein 9.5 H (6.3-8.2) g/dL Albumin 5.5 H (3.5-5.0) g/dL Urine Color Urine Appearance (Clear) Urine pH (5.0-8.0) Ur Specific [place] (1.001-1.035) Urine Protein (Negative) Urine Glucose (UA) (Negative) Urine Ketones (Negative) Urine Blood (Negative) Urine Nitrite (Negative) Urine Bilirubin (Negative) Urine Urobilinogen (<2.0) mg/dL Ur Leukocyte Esterase (Negative) Urine RBC (0-5) /hpf Urine WBC (0-5) /hpf Ur Squamous Epith Cells (0-4) /hpf Urine Mucus (None) /hpf Urine Opiates Screen (NotDetected) Ur Oxycodone Screen (NotDetected) Urine Methadone Screen (NotDetected) Ur Propoxyphene Screen (NotDetected) Ur Barbiturates Screen (NotDetected) U Tricyclic Antidepress (NotDetected) Ur Phencyclidine Scrn (NotDetected) Ur Amphetamines Screen (NotDetected) U Methamphetamines Scrn (NotDetected) U Benzodiazepines Scrn (NotDetected) Urine Cocaine Screen (NotDetected) U Marijuana (THC) Screen (NotDetected) Serum Alcohol <10 mg/dL Coronavirus (PCR) (Not Detectd) 01/22/21 01/22/21 01/22/21 Range/Units 04:55 05:03 05:38 WBC (3.8-10.6) k/uL RBC (4.30-5.90) m/uL Hgb (13.0-17.5) gm/dL Hct (39.0-53.0) % MCV (80.0-100.0) fL MCH (25.0-35.0) pg MCHC (31.0-37.0) g/dL RDW (11.5-15.5) % Plt Count (150-450) k/uL MPV Neutrophils % % Lymphocytes % % Monocytes % % Eosinophils % % Basophils % % Neutrophils # (1.3-7.7) k/uL Lymphocytes # (1.0-4.8) k/uL Monocytes # (0-1.0) k/uL Eosinophils # (0-0.7) k/uL Basophils # (0-0.2) k/uL Hypochromasia Macrocytosis Sodium (137-145) mmol/L Potassium (3.5-5.1) mmol/L Chloride (98-107) mmol/L Carbon Dioxide (22-30) mmol/L Anion Gap mmol/L BUN (9-20) mg/dL Creatinine (0.66-1.25) mg/dL Est GFR (CKD-EPI)AfAm (>60 ml/min/1.73 sqM) Est GFR (CKD-EPI)NonAf (>60 ml/min/1.73 sqM) Glucose (74-99) mg/dL Lactic Ac Sepsis Rflx Y Plasma Lactic Acid Maury (0.7-2.0) mmol/L Calcium (8.4-10.2) mg/dL Total Bilirubin (0.2-1.3) mg/dL AST (17-59) U/L ALT (4-49) U/L Alkaline Phosphatase (38-126) U/L Creatine Kinase (55-170) U/L Total Protein (6.3-8.2) g/dL Albumin (3.5-5.0) g/dL Urine Color Light Yellow Urine Appearance Clear (Clear) Urine pH 6.0 (5.0-8.0) Ur Specific [place] 1.005 (1.001-1.035) Urine Protein 1+ H (Negative) Urine Glucose (UA) 1+ H (Negative) Urine Ketones Trace H (Negative) Urine Blood Moderate H (Negative) Urine Nitrite Negative (Negative) Urine Bilirubin Negative (Negative) Urine Urobilinogen <2.0 (<2.0) mg/dL Ur Leukocyte Esterase Negative (Negative) Urine RBC 1 (0-5) /hpf Urine WBC <1 (0-5) /hpf Ur Squamous Epith Cells <1 (0-4) /hpf Urine Mucus Rare H (None) /hpf Urine Opiates Screen Not Detected (NotDetected) Ur Oxycodone Screen Not Detected (NotDetected) Urine Methadone Screen Not Detected (NotDetected) Ur Propoxyphene Screen Not Detected (NotDetected) Ur Barbiturates Screen Not Detected (NotDetected) U Tricyclic Antidepress Not Detected (NotDetected) Ur Phencyclidine Scrn Not Detected (NotDetected) Ur Amphetamines Screen Not Detected (NotDetected) U Methamphetamines Scrn Not Detected (NotDetected) U Benzodiazepines Scrn Not Detected (NotDetected) Urine Cocaine Screen Detected H (NotDetected) U Marijuana (THC) Screen Detected H (NotDetected) Serum Alcohol mg/dL Coronavirus (PCR) Not Detected (Not Detectd) - EKG Data EKG Comments: EKG demonstrates sinus tachycardia with a ventricular rate of 139. NV interval 132. QRS 82. QTC 447. No acute ST segment elevations. Peak T waves in V1 through V4 Disposition Clinical Impression: Lactic acidosis, Breakthrough seizure, Seizure disorder, Hypertension Disposition: ADMITTED IP TO THIS [facility] Condition: Stable Is patient prescribed a controlled substance at d/c from ED?: No Decision to Admit Reason: Admit from EC Decision Date: 01/22/21 Decision Time: 06:08
[2021-01-22 03:48] LABS: AST 154 U/L (17-59); African American GFR (CKD) 74 (>60 ml/min/1.73 sqM); Albumin 5.5 g/dL (3.5-5.0); Alcohol <10 mg/dL; Alkaline Phosphatase 161 U/L (38-126); Blood Urea Nitrogen 5 mg/dL (9-20); Calcium 10.7 mg/dL (8.4-10.2); Chloride 101 mmol/L (98-107); Creatine Kinase 702 U/L (55-170); Glucose 202 mg/dL (74-99); Non-African American GFR(CKD) 64 (>60 ml/min/1.73 sqM); Potassium 3.9 mmol/L (3.5-5.1); Sodium 142 mmol/L (137-145); Total Bilirubin 1.3 mg/dL (0.2-1.3); Total Protein 9.5 g/dL (6.3-8.2)
[2021-01-22 04:05] LABS: ALT 57 U/L (4-49); Carbon Dioxide <5 mmol/L (22-30)
[2021-01-22] MEDS ORDERED: ONDANSETRON 4 MG/2 ML VIAL IVP STA (04:51)
[2021-01-22] MEDS ORDERED: SODIUM CHLORIDE 0.9% 2,000 ML IV ONE (04:56)
--- NOTE | 2021-01-22 05:18 | XR ---
EXAM: XR Chest, 1 View CLINICAL HISTORY: ITS.REASON XR Reason: shortness of breath TECHNIQUE: Frontal view of the chest. COMPARISON: 10/21/2017 FINDINGS: Lungs: Unremarkable. No consolidation. Pleural space: Unremarkable. No pneumothorax. Heart: Unremarkable. No cardiomegaly. Mediastinum: Unremarkable. Bones/joints: Unremarkable. IMPRESSION: No acute pulmonary process.
[2021-01-22] MEDS ORDERED: cloNIDine HCL 0.1 MG TAB PO STA (05:41)
[2021-01-22 05:58] LABS: Appearance,Urine Clear (Clear); Bilirubin,Urine Negative (Negative); Blood,Urine Moderate (Negative); Color,Urine Light Yellow; Glucose,Urine (UA) 1+ (Negative); Ketones,Urine Trace (Negative); Leukocyte Esterase,Urine Negative (Negative); Mucus,Urine Rare /hpf; Nitrite,Urine Negative (Negative); Protein,Urine 1+ (Negative); RBC,Urine 1 /hpf (0-5); Specific Gravity,Urine 1.005 (1.001-1.035); Squamous Epithelial Cell,Urine <1 /hpf (0-4); Urobilinogen,Urine <2.0 mg/dL (<2.0); WBC,Urine <1 /hpf (0-5)
[2021-01-22 06:08] LABS: Amphetamine Screen,Urine Not Detected (NotDetected); Barbiturate Screen,Urine Not Detected (NotDetected); Benzodiazepines Screen,Urine Not Detected (NotDetected); Cocaine Screen,Urine Detected (NotDetected); Methadone Screen, Urine Not Detected (NotDetected); Opiate Screen,Urine Not Detected (NotDetected); Oxycodone Screen, Urine Not Detected (NotDetected); Phencyclidine Screen,Urine Not Detected (NotDetected); Tricyclic Antidepressant,Urine Not Detected (NotDetected); Urn Cannabinoid Scrn Detected (NotDetected)
[2021-01-22] MEDS ORDERED: NALOXONE 0.4 MG/ML 1 ML VIAL IV PRN (06:08)
--- NOTE | 2021-01-22 06:32 | CT ---
EXAM: CT Head Without Intravenous Contrast CLINICAL HISTORY: ITS.REASON CT Reason: status TECHNIQUE: Axial computed tomography images of the head/brain without intravenous contrast. CTDI is 49.2 mGy and DLP is 1135.4 mGy-cm. This CT exam was performed using one or more of the following dose reduction techniques: automated exposure control, adjustment of the mA and/or kV according to patient size, and/or use of iterative reconstruction technique. COMPARISON: 09/19/2018 FINDINGS: Brain: Unremarkable. No hemorrhage. No significant white matter disease. No edema. Ventricles: Unremarkable. No ventriculomegaly. Bones/joints: Unremarkable. No acute fracture. Soft tissues: Unremarkable. Sinuses: Unremarkable as visualized. No acute sinusitis. Mastoid air cells: Unremarkable as visualized. No mastoid effusion. IMPRESSION: No acute intracranial process.
[2021-01-22] MEDS ORDERED: LACOSAMIDE IV 100 MG in SODIUM CHLORIDE 0.9% 50 ML IVPB STA (06:48)
[2021-01-22] MEDS: SODIUM CHLORIDE 0.9% 1,000 ML IV SCH ×2 (07:05→14:55)
[2021-01-22] MEDS ORDERED: levETIRAcetam IV 2,000 MG in SALINE 1 100ML.BAG IVPB STA (07:49)
[2021-01-22] MEDS ORDERED: LORazepam 2 MG/ML INJ IV PRN ×3 (09:00)
--- NOTE | 2021-01-22 09:01 | P.CNNES ---
History of Present Illness Consult date: 01/22/21 Requesting physician: Farzana Arcos Reason for Consult: status epilepticus History of Present Illness: This is a 40-year-old gentleman with medical history of epilepsy, hypertension, heavy alcohol use, alcohol withdrawl seizures and tobacco use. that presented to the emergency department on 01/22/2021 for multiple seizure episodes. History was obtained from medical records. Per the ED note the patient's significant other was at bedside and she was helping with a history and was stated the patient had 3 seizures lasting 30 seconds at home as a result EMS was called. On route the patient had a seizure of whole body shaking lasting 30 seconds and noted that he had urinary incontinence so he received 5mg of Valium. Upon arrival to the ED and placing the patient in the room the patient had a fifth seizure. The patient is on Vimpat for seizure control but it's unsure whether the patient is at taking his medication or not. The patient does not follow up with a neurologist the antiepileptic drug as prescribed by the primary care. Upon seeing the patient at bedside he was wide awake and the stated that he is on seizure medication and told he is on Vimpat but could not tell me the dose. Upon asking him if he was on Keppra he stated yes but he cannot tell me the dose. Initially he stated that he is on 50 mg of Keppra and I told him my Keppra does not come and 50 mg. According to patient he is been compliant taking the medication. Per the patient nurse when she spoke to his girlfriend the patient has not been at home for the last 2 days and that's where his medications are at. Patient stated that he doesn't follow up with a neurologist rather he follows up with his primary caregivers and the medications. He did acknowledge that he drinks on a daily basis and these been off doing for years and he is a heavy alcohol user but cannot tell me how much. He smokes 3 packs of cigarettes daily and has been smoking for years. He he does acknowledge that the he occasionally uses cocaine and marijuana. Regarding his seizures he is to follow up with Dr. Glass in the past guarding his seizures but has not followed up with them since she missed so many appointments and he said he was incarcerated as a result he was not seen an neurologist. She stated that she is on Keppra and does not have any side effects to the Keppra. Regarding his seizure onset he said that started about 2 years ago that he thinks that he says that the sometimes he feels he smells something that off then after that he looses consciousness and in the hospital. He was told his whole body shakes. He said in the past he did the bike dystonic and had the urinary incontinence but denies any bowel incontinence. He denies childhood seizures. He he does acknowledge that there is a family history of seizures. He could not Brent about his history. Upon reviewing the patient's medical record he was evaluated by Dr. Ayla Hilton in 06/29/2019 for seizure. It is also documented that patient has several head injury in the past. It seems that the patient was followed up with a neurologist in the past (Dr. Mcfadden team) but has missed many appointments. It is also mentioned that the patient has a history of generalized tonic-clonic seizures with tongue bite. He was on Keppra 1gm bid. iIt is mentioned that the patient breakthrough seizure last time was due to the likely medication noncompliance. She had an EEG on the 06/29/2019 our system and is reported as normal. There is no focal slowing, up from discharge or seizure that was reported on that report. Workup in the hospital consisted of: Initial vital signs: Blood pressure of 173/79, heart rate 151, blood pressure of 98.6 Fahrenheit axillary, respiratory of 20, pulse ox of 93 L at room air. CT of the head is reported as no acute intracranial process. EKG is reported as sinus tachycardia. Minimal voltage criteria for left ventri cular hypertrophy, may be normal variant. Initial white blood cells 15.7 and MCV of 102.6 which are elevated. Sodium is 142 which is normal. Carbon dioxide less than 5 which is extremely low, plasma like acid the vein is more than 24. Safety is 154 and the ALT is 57 which seems suggestive of alcohol use since the AST is more than the ALT more than twice as much. As well as in the past the and there was a concern of alcohol withdrawal as well. CK level is 702 which is elevated. BUN is 5 and creatinine is 1.3. Toxicology screen is positive for cocaine as well as marijuana. Alcohol is less than 10. In the hospital the patient received Vimpat 100 mg once. Review of Systems Review of system is limited but the prone positive and negative as per HPI. Past Medical History Past Medical History: Hypertension, Seizure Disorder Additional Past Medical History / Comment(s): Last seizure 06/28/19, occasional low back pain. History of Any Multi-Drug Resistant Organisms: None Reported Past Surgical History: Hernia Repair Additional Past Surgical History / Comment(s): R inguinal hernia repair. Past Anesthesia/Blood Transfusion Reactions: No Reported Reaction Additional Past Anesthesia/Blood Transfusion Reaction / Comment(s): Pt has never had surgery/anesthesia Past Psychological History: No Psychological Hx Reported Past Alcohol Use History: Daily Past Drug Use History: None Reported - Past Family History Father Family Medical History: CVA/TIA Additional Family Medical History / Comment(s): Father is in his 60's Mother Family Medical History: Diabetes Mellitus, Hypertension Medications and Allergies Home Medications Medication Instructions Recorded Confirmed Type Thiamine [Vitamin B-1] 100 mg PO BID-W/MEALS tab 07/01/19 Rx cloNIDine HCL [Catapres] 0.1 mg PO TID #90 tab 07/01/19 Rx levETIRAcetam [Keppra] 1,000 mg PO Q12HR #60 tab 07/01/19 Rx Allergies Allergy/AdvReac Type Severity Reaction Status Date / Time No Known Allergies Allergy Verified 01/22/21 02:47 Physical Examination - Vital Signs Vital Signs: Vital Signs Temp Pulse Resp BP Pulse Ox 01/22/21 07:16 100 F H 106 H 16 152/104 97 01/22/21 06:32 99 16 140/96 96 01/22/21 05:03 117 H 20 177/120 98 01/22/21 04:07 129 H 20 167/117 96 01/22/21 02:41 98.6 F 151 H 20 173/79 93 L Intake and Output 01/21/21 01/22/21 01/22/21 22:59 06:59 14:59 Other: Weight 68.039 kg GENERAL: The patient is lying in bed and is not in acute distress. CHEST: The heart rate is regular rate rhythm. No murmurs to auscultation. No carotid bruit bilaterally. LUNG: Clear to auscultation bilaterally no wheezing noted throughout. Not labored breathing. ABDOMEN/GI: Bowel sounds present in all 4 quadrants. No tenderness to palpation throughout. NEUROLOGICAL: Higher mental function: The patient is slightly drowsy but awakeable, oriented to self, place. Initially could not tell me the year but later stated correctly 2020. and time. Patient is following commands. No aphasia and no neglect. Cranial nerves: The pupils are round, equal and reactive to light and accommodation. Visual young are full to confrontation throughout. Extraocular movement is intact no nystagmus is noted. Facial sensation is normal to touch throughout. The facial strength is normal throughout. Hearing is normal bilaterally to hand rub. Tongue is midline and moved [id number] without any difficulty. No dysarthria is noted. Shoulder shrug is normal bilaterally. Motor: Gait is normal. The strength is 5 over 5 throughout. Normal tone and bulk. Cerebellum: Normal finger to nose bilaterally. Sensation: Sensation is normal to touch throughout. Reflexes (right/left): 2+ Plantars are downgoing bilaterally. Results Urinalysis is negative for urinary tract infection. Hines virus PCR was not detected. - Laboratory Findings CBC and BMP: 01/22/21 02:53 01/22/21 02:53 Abnormal Lab Findings: Abnormal Labs 01/22/21 01/22/21 01/22/21 02:49 02:53 02:53 WBC 15.7 H MCV 102.6 H MCHC 29.9 L Neutrophils # 9.2 H Monocytes # 1.1 H Carbon Dioxide <5 L* BUN 5 L Creatinine 1.38 H Glucose 202 H Plasma Lactic Acid Maury >24.0 H* Calcium 10.7 H AST 154 H ALT 57 H Alkaline Phosphatase 161 H Creatine Kinase 702 H Total Protein 9.5 H Albumin 5.5 H Urine Protein Urine Glucose (UA) Urine Ketones Urine Blood Urine Mucus Urine Cocaine Screen U Marijuana (THC) Screen 01/22/21 05:38 WBC MCV MCHC Neutrophils # Monocytes # Carbon Dioxide BUN Creatinine Glucose Plasma Lactic Acid Maury Calcium AST ALT Alkaline Phosphatase Creatine Kinase Total Protein Albumin Urine Protein 1+ H Urine Glucose (UA) 1+ H Urine Ketones Trace H Urine Blood Moderate H Urine Mucus Rare H Urine Cocaine Screen Detected H U Marijuana (THC) Screen Detected H Assessment and Plan Assessment: Breakthrough seizure and came with clinical status epilepticus likely due to medication noncompliance and alcohol withdrawl seizure---status resolved. History of epilepsy Polysubstance use (cocaine, marijuana and alcohol use). Macrocytosis (MCV 102) due to alcohol use Chronic heavy alcohol use alcohol level less than 10 on this presentation Elevated liver function tests with AST more than twice as ALT (due to alcohol use) Acute kidney insufficiency due to dehydration Tobacco use Plan: Loaded the patient with Keppra 2000 mg once. I started the patient on 9 Keppra 1009 mg 1 tablet twice a day, Vimpat 50 mg 1 tablet twice a day. If the patient's seizure improves I would recommend titrating some of the medication but that should be done as an outpatient and that's after him being compliant with the medication and being seizure-free for a period of time but again as stated I will defer it to outpatient neurologist. I ordered an EEG. I placed the patient on thiamine 100 mg 1 tablet twice a day. I ordered vitamin B12 as well as the folic acid levels as well as missed methylmalonic acid since the patient had elevated MCV and AST > ALT likely due to alcohol use causing macrocytosis. I prophylactically and started the patient and vitamin B12 1000 g daily and folic acid 1 mg daily. Placed the patient on CIWA protocol and will defer management to primary team and ICU team. The patient was notified that according to the [facility] law that he cannot drive for 6 month until seizure-free, to avoid swimming unassisted, avoid the [place], avoid heavy machinery. Recommend the patient to follow-up with outpatient neurologist within 1-2 weeks (Consider Dr. Arceo). The patient was counseled on tobacco cessation, alcohol cessation as well as a illicit drug use cessation. We'll defer the rest of the medical management to the primary team. The plan is discussed with the patient's nurse. Thank you for the consultation. Norm Conner M.D. Neuro-hospitalist Time with Patient: Greater than 30
[2021-01-22 09:42] VITALS: RESP 18
[2021-01-22] MEDS: cloNIDine HCL 0.1 MG TAB PO SCH ×3 (09:43→22:12)
[2021-01-22] MEDS: levETIRAcetam 500 MG TAB PO SCH ×2 (09:49→21:08)
[2021-01-22] MEDS: LACOSAMIDE 50 MG TABLET PO SCH ×2 (09:49→21:08)
--- NOTE | 2021-01-22 10:00 | P.CNPUL ---
History of Present Illness Consult date: 01/22/21 Chief complaint: Breakthrough seizures History of present illness: 40-year-old male patient, history of epilepsy, hypertension and history of alc oholism along with previous history of alcohol withdrawal seizures. The patient came into the ED on 01/22/2021 after having multiple episodes of seizure at home. He did have generalized tonic-clonic seizures along with urinary incontinence. The patient received Valium 5 mg IV. Upon arrival to the ED, the patient had his fifth seizures. The patient has been maintained on Vimpat for seizure control but we are not sure if the patient has been taking the medication or not. The patient is currently awake and he states that he is taken his seizure medications. He admitted for alcohol drinking and his a heavy alcohol drinker. We were consulted on this patient as the patient had lactic acidosis secondary to his ongoing seizure activity. Note that his serum bicarbonate was less than 5. His plasma lactic acid level was 24 and subsequently dropped down to 0.9.. Patient is currently on normal saline at the rate of 130s's an hour. He received a total of 2 L of IV fluids bolus during night shifts. He is currently not going into alcohol withdrawal was and he doesn't have any signs of delirium tremens. He is awake and alert and there is no confusion. Is complaining of some headache. He was given IV Vimpat and he was also given IV Keppra total of 2 g. He is hemodynamically stable. On his blood work, I do see improvement in his lactic acid level which is down to 0.9. He does have some transaminitis related to alcoholic liver disease. His creatinine is at 1.3. White cell count of 15.7 with a hemoglobin of 15.3. CAT scan of the brain was negative and the chest x-ray was showing no acute cardiopulmonary process. The patient was also started on Vimpat 50 mg by mouth twice a day, Keppra 1 g every 12 hours and he is currently on the [place] her to call. He was given thiamine and clonidine 0.1 mg by mouth 3 times a day for blood pressure control. Review of Systems Constitutional: Denies chills, Denies fever Eyes: denies as per HPI, denies blurred vision, denies bulging eye, denies decreased vision, denies diplopia, denies discharge, denies dry eye, denies irritation, denies itching, denies pain, denies photophobia, denies loss of peripheral vision, denies loss of vision, denies tunnel vision/blind spots Ears: deny: decreased hearing, ear discharge, earache, tinnitus Ears, nose, mouth and throat: Reports as per HPI Breasts: absent: as per HPI, gynecomastia Cardiovascular: Reports as per HPI Respiratory: Reports as per HPI Gastrointestinal: Reports as per HPI Genitourinary: Reports as per HPI Musculoskeletal: Reports as per HPI Musculoskeletal: absent: ankle pain, ankle stiffness, ankle swelling Integumentary: Reports as per HPI Neurological: Reports seizures Psychiatric: Reports as per HPI Endocrine: Reports as per HPI Hematologic/Lymphatic: Reports as per HPI Allergic/Immunologic: Reports as per HPI Past Medical History Past Medical History: Hypertension, Seizure Disorder Additional Past Medical History / Comment(s): Last seizure 06/28/19, occasional low back pain. History of Any Multi-Drug Resistant Organisms: None Reported Past Surgical History: Hernia Repair Additional Past Surgical History / Comment(s): R inguinal hernia repair. Past Anesthesia/Blood Transfusion Reactions: No Reported Reaction Additional Past Anesthesia/Blood Transfusion Reaction / Comment(s): Pt has never had surgery/anesthesia Past Psychological History: No Psychological Hx Reported Past Alcohol Use History: Daily Past Drug Use History: None Reported - Past Family History Father Family Medical History: CVA/TIA Additional Family Medical History / Comment(s): Father is in his 60's Mother Family Medical History: Diabetes Mellitus, Hypertension Additional Family Medical History / Comment(s): Mother is living Medications and Allergies Home Medications Medication Instructions Recorded Confirmed Type cloNIDine HCL [Catapres] 0.1 mg PO TID #90 tab 07/01/19 01/22/21 Rx Lacosamide [Vimpat] 100 mg PO BID 01/22/21 01/22/21 History amLODIPine [Norvasc] 10 mg PO DAILY 01/22/21 01/22/21 History levETIRAcetam [Keppra] 1,000 mg PO BID 01/22/21 01/22/21 History Allergies Allergy/AdvReac Type Severity Reaction Status Date / Time No Known Allergies Allergy Verified 01/22/21 09:17 Physical Exam Vitals: Vital Signs Temp Pulse Resp BP Pulse Ox 01/22/21 09:37 99.7 F H 99 18 157/107 97 01/22/21 07:16 100 F H 106 H 16 152/104 97 01/22/21 06:32 99 16 140/96 96 01/22/21 05:03 117 H 20 177/120 98 01/22/21 04:07 129 H 20 167/117 96 01/22/21 02:41 98.6 F 151 H 20 173/79 93 L Intake and Output 01/21/21 01/22/21 01/22/21 22:59 06:59 14:59 Other: Weight 68.039 kg 68.039 kg The patient appeared well nourished and normally developed. Vital signs as documented. Head exam is unremarkable. No scleral icterus or corneal arcus noted. Neck is without jugular venous distension, thyromegaly, or carotid bru its. Carotid upstrokes are brisk bilaterally. Lungs are clear to auscultation and percussion. Cardiac exam reveals the PMI to be normally sized and situated. Rhythm is regular. First and second heart sounds normal. No murmurs, rubs or gallops. Abdominal exam reveals normal bowel sounds, no masses, no organomegaly and no aortic enlargement. Extremities are nonedematous and both femoral and pedal pulses are normal.Examination of the skin revealed no evidence of significant rashes, suspicious appearing nevi or other concerning lesions.Neurologically, the patient is awake and alert and the patient does not have any focal neurological deficit. Cranial nerves are essentially intact. Results - Laboratory Findings CBC and BMP: 01/22/21 02:53 01/22/21 02:53 Abnormal lab findings: Abnormal Labs 01/22/21 01/22/21 01/22/21 02:49 02:53 02:53 WBC 15.7 H MCV 102.6 H MCHC 29.9 L Neutrophils # 9.2 H Monocytes # 1.1 H Carbon Dioxide <5 L* BUN 5 L Creatinine 1.38 H Glucose 202 H Plasma Lactic Acid Maury >24.0 H* Calcium 10.7 H AST 154 H ALT 57 H Alkaline Phosphatase 161 H Creatine Kinase 702 H Total Protein 9.5 H Albumin 5.5 H Urine Protein Urine Glucose (UA) Urine Ketones Urine Blood Urine Mucus Urine Cocaine Screen U Marijuana (THC) Screen 01/22/21 05:38 WBC MCV MCHC Neutrophils # Monocytes # Carbon Dioxide BUN Creatinine Glucose Plasma Lactic Acid Maury Calcium AST ALT Alkaline Phosphatase Creatine Kinase Total Protein Albumin Urine Protein 1+ H Urine Glucose (UA) 1+ H Urine Ketones Trace H Urine Blood Moderate H Urine Mucus Rare H Urine Cocaine Screen Detected H U Marijuana (THC) Screen Detected H - Diagnostic Findings Chest x-ray: image reviewed Assessment and Plan Plan: 1 recurrent seizures and a 40-year-old male patient with known history of alcoholism presented to the hospital because of breakthrough seizures. The patient had several bouts of seizures at home and he came in to the emergency room where he was given IV Vimpat and IV Keppra. Currently is been transitioned to oral medication/antiepileptic agents. He is awake and alert. No signs of any delirium tremens. No postictal neurologic impairment. The breakthrough seizures could be related to drug noncompliance and EtOH use. Computed tomography scan of the brain is negative. 2 history of epilepsy 3 alcoholism 4 Substance abuse (cocaine and marijuana) 5 mild transaminitis rates to chronic alcoholic liver disease 6 severe lactic acidosis secondary to seizures, improved 7 acute kidney injury secondary to dehydration creatinine is currently is at 1.3 8 smoking Plan Continue IV fluids at 130s's an hour Watch for any further seizure activity and seizure precautions will be provided Continue the combination of Vimpat and Keppra Lactic acid levels have normalized Monitor renal function Monitor liver function tests Watch for any signs of delirium tremens and the patient is currently on the CIWA protocol Agree on thiamine Neurology consultation has been performed The patient will be downgraded to [facility] without telemetry. Contact pulmonary and critical services back if there is any change in status. Otherwise, we are going to sign off the case.
[2021-01-22] MEDS ORDERED: HYDROmorphone 0.5 MG/0.5 ML SYRINGE IVP PRN (10:01)
[2021-01-22] MEDS ORDERED: ACETAMINOPHEN TAB 500 MG TAB PO PRN (10:01)
[2021-01-22] MEDS: FOLIC ACID 1 MG TAB PO SCH (10:42)
[2021-01-22] MEDS: CYANOCOBALAMIN 500 MCG TAB PO SCH (10:42)
[2021-01-22] MEDS: THIAMINE 100 MG in SODIUM CHLORIDE 0.9% 50 ML IVPB SCH ×2 (10:43→21:08)
[2021-01-22] MEDS: amLODIPine 10 MG TAB PO SCH (11:41)
[2021-01-22 12:09] LABS: Folate, Serum 15.3 ng/mL
--- NOTE | 2021-01-22 16:04 | P.HPIM ---
History of Present Illness Patient is a pleasant 40-year-old male is admitted for further seizures. Patient was diagnosed with seizure disorder in 2011. Patient does drink alcohol drinks about 12 beers a day. Patient doesn't believe he'll have withdrawals a lthough his seizures appear to be related to alcohol. Patient is on Keppra and Vimpat and it didn't miss any doses as per the patient patient had total of around 5 seizures since 2 AM today morning. Patient does admit to smoking and cocaine use which was about a week Ago. Patient smokes 2 packs of cigarettes per day and occasionally uses marijuana as well. Patient usually does have or and the generalized tonic-clonic seizures followed by loss of consciousness and patient didn't lose bowel and bladder continence patient denied any change with seizures. Apparently patient had a head injury in the past as well. CT of the head didn't did not show any significant abnormality white count is elevated MCV is elevated, patient had elevated lactic acid with elevated liver enzymes and acute renal failure with creatinine of 1.3. Review of Systems REVIEW OF SYSTEMS: CONSTITUTIONAL: No fever, no malaise, no fatigue. HEENT: No recent visual problems or hearing problems. Denied any sore throat. CARDIOVASCULAR: No chest pain, orthopnea, PND, no palpitations, no syncope. PULMONARY: No shortness of breath, no cough, no hemoptysis. GASTROINTESTINAL: No diarrhea, no nausea, no vomiting, no abdominal pain. NEUROLOGICAL: As mentioned in HPI HEMATOLOGICAL: Denies any bleeding or petechiae. GENITOURINARY: Denies any burning micturition, frequency, or urgency. MUSCULOSKELETAL/RHEUMATOLOGICAL: Denies any joint pain, swelling, or any muscle pain. ENDOCRINE: Denies any polyuria or polydipsia. The rest of the 14-point review of systems is negative. Past Medical History Past Medical History: Hypertension, Seizure Disorder Additional Past Medical History / Comment(s): Last seizure 06/28/19, occasional low back pain. History of Any Multi-Drug Resistant Organisms: None Reported Past Surgical History: Hernia Repair Additional Past Surgical History / Comment(s): R inguinal hernia repair. Past Anesthesia/Blood Transfusion Reactions: No Reported Reaction Additional Past Anesthesia/Blood Transfusion Reaction / Comment(s): Pt has never had surgery/anesthesia Past Psychological History: No Psychological Hx Reported Past Alcohol Use History: Daily Past Drug Use History: None Reported - Past Family History Father Family Medical History: CVA/TIA Additional Family Medical History / Comment(s): Father is in his 60's Mother Family Medical History: Diabetes Mellitus, Hypertension Additional Family Medical History / Comment(s): Mother is living Medications and Allergies Home Medications Medication Instructions Recorded Confirmed Type cloNIDine HCL [Catapres] 0.1 mg PO TID #90 tab 07/01/19 01/22/21 Rx Lacosamide [Vimpat] 100 mg PO BID 01/22/21 01/22/21 History amLODIPine [Norvasc] 10 mg PO DAILY 01/22/21 01/22/21 History levETIRAcetam [Keppra] 1,000 mg PO BID 01/22/21 01/22/21 History Allergies Allergy/AdvReac Type Severity Reaction Status Date / Time No Known Allergies Allergy Verified 01/22/21 09:17 Physical Exam Vitals: Vital Signs Temp Pulse Pulse Resp BP BP Pulse Ox 01/22/21 15:29 98.7 F 80 18 153/93 97 01/22/21 15:19 18 01/22/21 15:04 97 01/22/21 13:40 99 F 92 18 137/96 96 01/22/21 12:47 99.1 F 92 18 155/100 95 01/22/21 11:42 86 145/100 01/22/21 10:47 101 H 18 155/106 98 01/22/21 09:37 99.7 F H 99 18 157/107 97 01/22/21 07:16 100 F H 106 H 16 152/104 97 01/22/21 06:32 99 16 140/96 96 01/22/21 05:03 117 H 20 177/120 98 01/22/21 04:07 129 H 20 167/117 96 01/22/21 02:41 98.6 F 151 H 20 173/79 93 L Intake and Output 01/22/21 01/22/21 01/22/21 06:59 14:59 22:59 Output Total 1175 Balance -1175 Output: Urine 1175 Other: Voiding Method Toilet Weight 68.039 kg 68.039 kg PHYSICAL EXAMINATION: GENERAL: The patient is alert and oriented x3, not in any acute distress. Well developed, well nourished. HEENT: Pupils are round and equally reacting to light. EOMI. No scleral icterus. No conjunctival pallor. Normocephalic, atraumatic. No pharyngeal erythema. No thyromegaly. CARDIOVASCULAR: S1 and S2 present. No murmurs, rubs, or gallops. PULMONARY: Chest is clear to auscultation, no wheezing or crackles. ABDOMEN: Soft, nontender, nondistended, normoactive bowel sounds. No palpable organomegaly. MUSCULOSKELETAL: No joint swelling or deformity. EXTREMITIES: No cyanosis, clubbing, or pedal edema. NEUROLOGICAL: Gross neurological examination did not reveal any focal deficits. SKIN: No rashes. Results CBC & Chem 7: 01/22/21 02:53 01/22/21 02:53 Labs: Abnormal Lab Results - Last 24 Hours (Table) 01/22/21 01/22/21 01/22/21 Range/Units 02:49 02:53 02:53 WBC 15.7 H (3.8-10.6) k/uL MCV 102.6 H (80.0-100.0) fL MCHC 29.9 L (31.0-37.0) g/dL Neutrophils # 9.2 H (1.3-7.7) k/uL Monocytes # 1.1 H (0-1.0) k/uL Carbon Dioxide <5 L* (22-30) mmol/L BUN 5 L (9-20) mg/dL Creatinine 1.38 H (0.66-1.25) mg/dL Glucose 202 H (74-99) mg/dL Plasma Lactic Acid Maury >24.0 H* (0.7-2.0) mmol/L Calcium 10.7 H (8.4-10.2) mg/dL AST 154 H (17-59) U/L ALT 57 H (4-49) U/L Alkaline Phosphatase 161 H (38-126) U/L Creatine Kinase 702 H (55-170) U/L Total Protein 9.5 H (6.3-8.2) g/dL Albumin 5.5 H (3.5-5.0) g/dL Urine Protein (Negative) Urine Glucose (UA) (Negative) Urine Ketones (Negative) Urine Blood (Negative) Urine Mucus (None) /hpf Urine Cocaine Screen (NotDetected) U Marijuana (THC) Screen (NotDetected) 01/22/21 Range/Units 05:38 WBC (3.8-10.6) k/uL MCV (80.0-100.0) fL MCHC (31.0-37.0) g/dL Neutrophils # (1.3-7.7) k/uL Monocytes # (0-1.0) k/uL Carbon Dioxide (22-30) mmol/L BUN (9-20) mg/dL Creatinine (0.66-1.25) mg/dL Glucose (74-99) mg/dL Plasma Lactic Acid Maury (0.7-2.0) mmol/L Calcium (8.4-10.2) mg/dL AST (17-59) U/L ALT (4-49) U/L Alkaline Phosphatase (38-126) U/L Creatine Kinase (55-170) U/L Total Protein (6.3-8.2) g/dL Albumin (3.5-5.0) g/dL Urine Protein 1+ H (Negative) Urine Glucose (UA) 1+ H (Negative) Urine Ketones Trace H (Negative) Urine Blood Moderate H (Negative) Urine Mucus Rare H (None) /hpf Urine Cocaine Screen Detected H (NotDetected) U Marijuana (THC) Screen Detected H (NotDetected) Thrombosis Risk Factor Assmnt - Choose All That Apply Any of the Below Risk Factors Present?: Yes Each Factor Represents 1 point: Medical pt on bed rest Other Risk Factors: Yes Each Risk Factor Represents 2 Points: Patient confined to bed Other congenital or acquired thrombophilia - If yes, enter type in comment: No Thrombosis Risk Factor Assessment Total Risk Factor Score: 3 Thrombosis Risk Factor Assessment Level: Moderate Risk Assessment and Plan Plan: -Break through seizures: Patient was loaded with Keppra and presently on Keppra thousand milligrams twice a day and Vimpat 50 mg twice a day it appears patient is on the same doses as an outpatient to patient will be monitored overnight.- History of epilepsy -Polysubstance use -Alcohol abuse: Counseling was provided patient will be monitored for alcohol withdrawals patient is already on CIWA protocol -Acute alcoholic hepatitis -Macrocytosis secondary to alcohol use -Acute renal failure: Secondary to prerenal azotemia from seizures patient will be continued on IV fluids -Anion gap metabolic acidosis secondary to lactic acidosis which is again secondary to seizures which improved now with IV fluids -Hypertension - nicotine abuse: Counseling was provided
[2021-01-22] MEDS ORDERED: SODIUM CHLORIDE 0.9% 100 ML BAG ONE (23:59)
[2021-01-22] MEDS ORDERED: levETIRAcetam IV 500 MG/5 ML VIAL ONE (23:59)
[2021-01-23] MEDS: SODIUM CHLORIDE 0.9% 1,000 ML IV SCH ×3 (01:31→14:12)
[2021-01-23 07:48] LABS: Basophils % (A) 0 %; Eosinophils # (A) 0.1 k/uL (0-0.7); Eosinophils % (A) 1 %; HCT 42.4 % (39.0-53.0); HGB 13.8 gm/dL (13.0-17.5); Lymphocytes # (A) 1.6 k/uL (1.0-4.8); Lymphocytes % (A) 18 %; MCH 30.6 pg (25.0-35.0); MCHC 32.5 g/dL (31.0-37.0); Mean Platelet Volume 7.7; Monocytes # (A) 0.6 k/uL (0-1.0); Monocytes % (A) 7 %; Neutrophils # (A) 6.3 k/uL (1.3-7.7); Neutrophils % (A) 73 %; Platelet Count 168 k/uL (150-450); RBC 4.51 m/uL (4.30-5.90); RDW 13.8 % (11.5-15.5); WBC 8.6 k/uL (3.8-10.6)
[2021-01-23 08:19] LABS: Levetiracetam (Keppra) 30.1 ug/mL (3.0-60.0)
[2021-01-23] MEDS: cloNIDine HCL 0.1 MG TAB PO SCH ×2 (08:35→16:38)
[2021-01-23] MEDS: CYANOCOBALAMIN 500 MCG TAB PO SCH (08:35)
[2021-01-23] MEDS: LACOSAMIDE 50 MG TABLET PO SCH (08:35)
[2021-01-23] MEDS: FOLIC ACID 1 MG TAB PO SCH (08:35)
[2021-01-23] MEDS: levETIRAcetam 500 MG TAB PO SCH (08:35)
[2021-01-23] MEDS: amLODIPine 10 MG TAB PO SCH (08:35)
[2021-01-23] MEDS: THIAMINE 100 MG in SODIUM CHLORIDE 0.9% 50 ML IVPB SCH (10:13)
[2021-01-23 13:49] VITALS: BP 137/97; PULSE 69; TEMP 99
[2021-01-23 14:04] LABS: African American GFR (CKD) 124.3 (60.0-200.0); Blood Urea Nitrogen <5.0 mg/dL (9.0-27.0); Calcium 9.1 mg/dL (8.7-10.3); Carbon Dioxide 23.6 mmol/L (21.6-31.8); Chloride 107 mmol/L (96-109); Glucose 101 mg/dL (70-110); Non-African American GFR(CKD) 107.2 (60.0-200.0); Potassium 3.6 mmol/L (3.5-5.5); Sodium 137 mmol/L (135-145)
--- NOTE | 2021-01-23 18:46 | EEG ---
ELECTROENCEPHALOGRAM REPORT DATE OF SERVICE: 01/23/2021. CLINICAL HISTORY: This is a 40-year-old gentleman with a history of epilepsy who presented to the emergency department with status epilepticus. This video EEG is performed to evaluate for seizure and epileptiform activity. Relevant medication is Keppra and Vimpat. EEG TYPE: A routine 21-channel EEG is performed with video using the 10/20 electrode placement system. DESCRIPTION: Wakefulness and drowsiness are obtained. During wakefulness, there is a posterior- dominant rhythm that is well modulated, well sustained of 10 to 11 hertz activity. During drowsiness there is slowing and attenuation of the background activity. There is no physiological stage II sleep. There is no focal slowing. Interictal and ictal is none. ACTIVATION PROCEDURE: Photic stimulation did not evoke a posterior driving response. Hyperventilation is not performed. CLINICAL INTERPRETATION: This is a normal routine EEG. There are no focal slowing, epileptiform discharges or seizure on the EEG. Clinical correlation is recommended. MMMELVA / AFSHANN: [id number] / [facility]ENTERLisha
[2021-01-24 11:16] LABS: Methylmalonic Acid <0.10 umol/L (<0.40)
--- NOTE | 2021-02-01 07:55 | P.DS ---
Providers Date of admission: 01/22/21 06:08 Expected date of discharge: 01/23/21 Attending physician: Meka Mccormick Consults: 01/22/21 06:08 Consult Physician Stat Consulting Provider: Portillo Means Consult Reason/Comments: status epilepticus, hx seizure disorder Do you want consulting provider notified?: Already Contacted Consult Physician Urgent Consulting Provider: Norm Conner Consult Reason/Comments: status epilepticus, hx seizure disorder Do you want consulting provider notified?: Yes Primary care physician: Stated None Hospital Course: 40-year-old male is admitted for further seizures. Patient was diagnosed with seizure disorder in 2011. Patient does drink alcohol drinks about 12 beers a day. Patient doesn't believe he'll have withdrawals although his seizures appear to be related to alcohol. Patient is on Keppra and Vimpat and it didn't miss any doses as per the patient patient had total of around 5 seizures since 2 AM today morning. Patient does admit to smoking and cocaine use which was about a week Ago. Patient smokes 2 packs of cigarettes per day and occasionally uses marijuana as well. Patient usually does have or and the generalized tonic- clonic seizures followed by loss of consciousness and patient didn't lose bowel and bladder continence patient denied any change with seizures. Apparently patient had a head injury in the past as well. CT of the head didn't did not show any significant abnormality white count is elevated MCV is elevated, patient had elevated lactic acid with elevated liver enzymes and acute renal failure with creatinine of 1.3. Breakthrough seizure and came with clinical status epilepticus likely due to medication noncompliance and alcohol withdrawl seizure---status resolved. History of epilepsy Polysubstance use (cocaine, marijuana and alcohol use). Macrocytosis (MCV 102) due to alcohol use Chronic heavy alcohol use alcohol level less than 10 on this presentation Elevated liver function tests with AST more than twice as ALT (due to alcohol use) Acute kidney insufficiency due to dehydration Tobacco use Plan: Loaded the patient with Keppra 2000 mg once. I started the patient on 9 Keppra 1009 mg 1 tablet twice a day, Vimpat 50 mg 1 tablet twice a day. If the patient's seizure improves I would recommend titrating some of the medication but that should be done as an outpatient and that's after him being compliant with the medication and being seizure-free for a period of time but again as stated I will defer it to outpatient neurologist. I ordered an EEG. I placed the patient on thiamine 100 mg 1 tablet twice a day. I ordered vitamin B12 as well as the folic acid levels as well as missed methylmalonic acid since the patient had elevated MCV and AST > ALT likely due to alcohol use causing macrocytosis. I prophylactically and started the patient and vitamin B12 1000 g daily and folic acid 1 mg daily The patient was notified that according to the [facility] law that he cannot drive for 6 month until seizure-free, to avoid swimming unassisted, avoid the [place], avoid heavy machinery. Recommend the patient to follow-up with outpatient neurologist within 1-2 weeks (Consider Dr. Arceo). Patient Condition at Discharge: Stable Plan - Discharge Summary Discharge Rx Participant: No New Discharge Prescriptions: New Folic Acid 1 mg PO DAILY tab Cyanocobalamin [Vitamin B-12] 1,000 mcg PO DAILY tab Continue cloNIDine HCL [Catapres] 0.1 mg PO TID #90 tab Lacosamide [Vimpat] 100 mg PO BID levETIRAcetam [Keppra] 1,000 mg PO BID amLODIPine [Norvasc] 10 mg PO DAILY Discharge Medication List cloNIDine HCL [Catapres] 0.1 mg PO TID #90 tab 07/01/19 [Rx] Lacosamide [Vimpat] 100 mg PO BID 01/22/21 [History] amLODIPine [Norvasc] 10 mg PO DAILY 01/22/21 [History] levETIRAcetam [Keppra] 1,000 mg PO BID 01/22/21 [History] Cyanocobalamin [Vitamin B-12] 1,000 mcg PO DAILY tab 01/23/21 [Rx] Folic Acid 1 mg PO DAILY tab 01/23/21 [Rx] Follow up Appointment(s)/Referral(s): Eulogio Arceo MD [REFERRING] - 1 Week (Please call the office to schedule your follow- up appointment. The office was closed at the time of your discharge.) [facility], [NON-STAFF] - 1-2 Days None,Stated [Primary Care Provider] - 1-2 days Patient Instructions/Handouts: Nonepileptic Seizures (DC) Discharge Disposition: HOME SELF-CARE
== END 2021-01-23 18:16 | disposition home or self-care (01) | DRG 101 ==
LOC: EC 02:40 → 2SICU 06:08 → 5NMEDONC 10:00
PROVIDERS: ADMIT Hospitalist; ATTEND Hospitalist
DX: G40.901 Epilepsy, unspecified, not intractable, with status epilepticus (principal); F10.239 Alcohol dependence with withdrawal, unspecified; N17.9 Acute kidney failure, unspecified; E87.2 Acidosis; Z71.6 Tobacco abuse counseling; F17.210 Nicotine dependence, cigarettes, uncomplicated; Z71.41 Alcohol abuse counseling and surveillance of alcoholic; F14.90 Cocaine use, unspecified, uncomplicated; I10 Essential (primary) hypertension; K70.10 Alcoholic hepatitis without ascites; Z79.899 Other long term (current) drug therapy; D75.89 Other specified diseases of blood and blood-forming organs; E86.0 Dehydration; Z82.0 Family history of epilepsy and other diseases of the nervous system; Z82.49 Family history of ischemic heart disease and other diseases of the circulatory system; Z83.3 Family history of diabetes mellitus; Z82.3 Family history of stroke; Z87.828 Personal history of other (healed) physical injury and trauma; T42.6X6A Underdosing of other antiepileptic and sedative-hypnotic drugs, initial encounter; Z91.128 Patient's intentional underdosing of medication regimen for other reason; Z20.822 Contact with and (suspected) exposure to COVID-19
CPT/HCPCS: 36415; 70450; 71045; 80048; 80053; 80177; 80235; 80306; 80320; 81001; 82550; 82607; 82746; 82747; 83605; 83921; 85025; 87635; 93005; 94760; 95816; 96361; 96374; 99285

== ENCOUNTER 2021-04-27 06:04 | Inpatient (IN) | payer OTHER ==
[2021-04-27] MEDS ORDERED: DIAZEPAM 5 MG/ML 2 ML INJ IVP STA (06:05)
[2021-04-27] MEDS ORDERED: SODIUM CHLORIDE 0.9% 500 ML 500 ML IV STA (06:05)
[2021-04-27] MEDS ORDERED: levETIRAcetam IV 1,000 MG in SALINE 1 100ML.BAG IVPB STA (06:05)
[2021-04-27] MEDS ORDERED: SODIUM CHLORIDE 0.9% 1,000 ML IV STA ×2 (06:05)
[2021-04-27] MEDS ORDERED: LORazepam 2 MG/ML INJ IV STA (06:05)
[2021-04-27] MEDS ORDERED: ONDANSETRON 4 MG/2 ML VIAL IVP STA (06:06)
[2021-04-27] MEDS ORDERED: MORPHINE SULFATE 4 MG/ML SYRINGE IVP STA (06:06)
--- NOTE | 2021-04-27 06:08 | ED ---
Seizure HPI - General Stated Complaint: Seizure Time Seen by Provider: 04/27/21 06:05 Source: RN notes reviewed, old records reviewed Mode of arrival: EMS Limitations: altered mental status, physical limitation - History of Present Illness Initial Comments: This is a 40-year-old male DF for evaluation. Patient Dese for evaluation of fever with combative behavior. Patient himself is complaining of severe nausea vomiting diaphoresis shaking generalized body aches and pains. Patient states his been off his blood pressure medication as well as a seizure medication for quite some time and noted that he is hasn't been able to get his medications refilled Complaint: seizure, feel seizure coming on, shaking -: hour(s) Description of Episode: loss of consciousness, tonic-clonic movement, post-event confusion -: second(s) Witnessed: yes - by bystander, yes - by EMS Seizure History: known seizure disorder, history of withdrawal seizures, history of non-compliance with treatment Place: home Possible Precipitating Event: alcohol withdrawal, stress Associated Symptoms: confusion, loss of appetite, shortness of breath, weakness Treatments Prior to Arrival: none - Related Data Home Medications Medication Instructions Recorded Confirmed Lacosamide [Vimpat] 100 mg PO BID 01/22/21 01/22/21 amLODIPine [Norvasc] 10 mg PO DAILY 01/22/21 01/22/21 levETIRAcetam [Keppra] 1,000 mg PO BID 01/22/21 01/22/21 Previous Rx's Medication Instructions Recorded cloNIDine HCL [Catapres] 0.1 mg PO TID #90 tab 07/01/19 Cyanocobalamin [Vitamin B-12] 1,000 mcg PO DAILY tab 01/23/21 Folic Acid 1 mg PO DAILY tab 01/23/21 Allergies Allergy/AdvReac Type Severity Reaction Status Date / Time No Known Allergies Allergy Verified 04/27/21 06:11 Review of Systems ROS Statement: Those systems with pertinent positive or pertinent negative responses have been documented in the HPI. ROS Other: All systems not noted in ROS Statement are negative. Past Medical History Past Medical History: Hypertension, Seizure Disorder Additional Past Medical History / Comment(s): Last seizure 06/28/19, occasional low back pain. History of Any Multi-Drug Resistant Organisms: None Reported Past Surgical History: Hernia Repair Additional Past Surgical History / Comment(s): R inguinal hernia repair. Past Anesthesia/Blood Transfusion Reactions: No Reported Reaction Additional Past Anesthesia/Blood Transfusion Reaction / Comment(s): Pt has never had surgery/anesthesia Past Psychological History: No Psychological Hx Reported Past Alcohol Use History: Daily Past Drug Use History: None Reported - Past Family History Father Family Medical History: CVA/TIA Additional Family Medical History / Comment(s): Father is in his 60's Mother Family Medical History: Diabetes Mellitus, Hypertension Additional Family Medical History / Comment(s): Mother is living General Exam - General Exam Comments Initial Comments: Significantly diaphoretic with active vomiting Limitations: altered mental status General appearance: alert, anxious, in distress Head exam: Present: atraumatic, normocephalic, normal inspection Eye exam: Present: normal appearance, PERRL, EOMI. Absent: scleral icterus, conjunctival injection, periorbital swelling ENT exam: Present: normal exam, mucous membranes moist Neck exam: Present: normal inspection. Absent: tenderness, meningismus, lymphadenopathy Respiratory exam: Present: normal lung sounds bilaterally. Absent: respiratory distress, wheezes, rales, rhonchi, stridor Cardiovascular Exam: Present: normal rhythm, tachycardia, normal heart sounds. Absent: systolic murmur, diastolic murmur, rubs, gallop, clicks GI/Abdominal exam: Present: soft, normal bowel sounds. Absent: distended, tenderness, guarding, rebound, rigid Extremities exam: Present: normal inspection, full ROM, normal capillary refill. Absent: tenderness, pedal edema, joint swelling, calf tenderness Back exam: Present: normal inspection Neurological exam: Present: alert, oriented X3, CN II-XII intact Psychiatric exam: Present: normal affect, normal mood Skin exam: Present: warm, dry, intact, normal color. Absent: rash Course Vital Signs 04/27/21 04/27/21 06:05 06:45 Temperature 98.4 F Pulse Rate 110 H 104 H Respiratory 20 20 Rate Blood Pressure 202/126 163/107 O2 Sat by Pulse 97 100 Oximetry - Reevaluation(s) Reevaluation #1: 04/27/21 06:13 Medical record is reviewed Reevaluation #2: 04/27/21 07:00 Patient symptoms are improved here in the ER, diaphoresis has improved vital signs have improved Reevaluation #3: 04/27/21 07:00 Patient has no recurrent seizure here in the emergency department Reevaluation #4: 04/27/21 07:00 Patient family informed of results and questions answered Medical Decision Making - Medical Decision Making 40 male DEL with multifactorial seizures, seizure medication noncompliance as well as substance abuse brings patient in with seizure today. Patient will be admitted for restarting antiepileptic medication, impending alcohol withdrawal - Lab Data Result diagrams: 04/27/21 06:12 04/27/21 06:12 Lab Results 04/27/21 04/27/21 04/27/21 Range/Units 06:12 06:12 06:12 WBC 7.5 (3.8-10.6) k/uL RBC 4.86 (4.30-5.90) m/uL Hgb 15.7 (13.0-17.5) gm/dL Hct 46.2 (39.0-53.0) % MCV 95.2 (80.0-100.0) fL MCH 32.2 (25.0-35.0) pg MCHC 33.9 (31.0-37.0) g/dL RDW 13.1 (11.5-15.5) % Plt Count 172 (150-450) k/uL MPV 7.5 Neutrophils % 48 % Lymphocytes % 40 % Monocytes % 6 % Eosinophils % 3 % Basophils % 1 % Neutrophils # 3.6 (1.3-7.7) k/uL Lymphocytes # 3.0 (1.0-4.8) k/uL Monocytes # 0.4 (0-1.0) k/uL Eosinophils # 0.3 (0-0.7) k/uL Basophils # 0.1 (0-0.2) k/uL Sodium 141 (137-145) mmol/L Potassium 3.6 (3.5-5.1) mmol/L Chloride 104 (98-107) mmol/L Carbon Dioxide 15 L (22-30) mmol/L Anion Gap 22 mmol/L BUN <2 L (9-20) mg/dL Creatinine 0.96 (0.66-1.25) mg/dL Est GFR (CKD-EPI)AfAm >90 (>60 ml/min/1.73 sqM) Est GFR (CKD-EPI)NonAf >90 (>60 ml/min/1.73 sqM) Glucose 108 H (74-99) mg/dL Calcium 9.3 (8.4-10.2) mg/dL Phosphorus 3.8 (2.5-4.5) mg/dL Magnesium 1.8 (1.6-2.3) mg/dL Total Bilirubin 1.0 (0.2-1.3) mg/dL AST 148 H (17-59) U/L ALT 46 (4-49) U/L Alkaline Phosphatase 122 (38-126) U/L Creatine Kinase 571 H (55-170) U/L Total Protein 8.2 (6.3-8.2) g/dL Albumin 4.9 (3.5-5.0) g/dL Lipase 160 (23-300) U/L Urine Color Light Yellow Urine Appearance Clear (Clear) Urine pH 6.0 (5.0-8.0) Ur Specific [place] 1.008 (1.001-1.035) Urine Protein 1+ H (Negative) Urine Glucose (UA) Negative (Negative) Urine Ketones Negative (Negative) Urine Blood Trace H (Negative) Urine Nitrite Negative (Negative) Urine Bilirubin Negative (Negative) Urine Urobilinogen <2.0 (<2.0) mg/dL Ur Leukocyte Esterase Negative (Negative) Urine RBC 1 (0-5) /hpf Ur Squamous Epith Cells <1 (0-4) /hpf Salicylates <1.0 mg/dL Urine Opiates Screen Not Detected (NotDetected) Ur Oxycodone Screen Not Detected (NotDetected) Urine Methadone Screen Not Detected (NotDetected) Ur Propoxyphene Screen Not Detected (NotDetected) Acetaminophen <10.0 ug/mL Ur Barbiturates Screen Not Detected (NotDetected) U Tricyclic Antidepress Not Detected (NotDetected) Ur Phencyclidine Scrn Not Detected (NotDetected) Ur Amphetamines Screen Not Detected (NotDetected) U Methamphetamines Scrn Not Detected (NotDetected) U Benzodiazepines Scrn Not Detected (NotDetected) Urine Cocaine Screen Detected H (NotDetected) U Marijuana (THC) Screen Detected H (NotDetected) Serum Alcohol 89 mg/dL - EKG Data -: EKG Interpreted by Me (EKG shows sinus tachycardia 108 VA 144 QRS 88 QTc 466) Disposition Clinical Impression: Epileptic seizure, generalized, Seizure disorder, Seizure secondary to subtherapeutic anticonvulsant medication, Breakthrough seizure, Generalized seizure, Polysubstance abuse Disposition: ADMITTED IP TO THIS [facility] Condition: Fair Instructions (If sedation given, give patient instructions): Seizure/Epilepsy Discharge Instructions & Follow-Up Referrals: None,Stated [Primary Care Provider] - 1-2 days
[2021-04-27 06:21] LABS: Basophils # (A) 0.1 k/uL (0-0.2); Basophils % (A) 1 %; Eosinophils # (A) 0.3 k/uL (0-0.7); Eosinophils % (A) 3 %; HCT 46.2 % (39.0-53.0); HGB 15.7 gm/dL (13.0-17.5); Lymphocytes % (A) 40 %; MCH 32.2 pg (25.0-35.0); MCHC 33.9 g/dL (31.0-37.0); MCV 95.2 fL (80.0-100.0); Mean Platelet Volume 7.5; Monocytes # (A) 0.4 k/uL (0-1.0); Monocytes % (A) 6 %; Neutrophils # (A) 3.6 k/uL (1.3-7.7); Neutrophils % (A) 48 %; Platelet Count 172 k/uL (150-450); RBC 4.86 m/uL (4.30-5.90); RDW 13.1 % (11.5-15.5); WBC 7.5 k/uL (3.8-10.6)
[2021-04-27 06:38] LABS: Appearance,Urine Clear (Clear); Bilirubin,Urine Negative (Negative); Blood,Urine Trace (Negative); Color,Urine Light Yellow; Glucose,Urine (UA) Negative (Negative); Ketones,Urine Negative (Negative); Leukocyte Esterase,Urine Negative (Negative); Nitrite,Urine Negative (Negative); Protein,Urine 1+ (Negative); RBC,Urine 1 /hpf (0-5); Specific Gravity,Urine 1.008 (1.001-1.035); Squamous Epithelial Cell,Urine <1 /hpf (0-4); Urobilinogen,Urine <2.0 mg/dL (<2.0)
[2021-04-27 06:40] LABS: ALT 46 U/L (4-49); AST 148 U/L (17-59); Acetaminophen <10.0 ug/mL; African American GFR (CKD) >90 (>60 ml/min/1.73 sqM); Albumin 4.9 g/dL (3.5-5.0); Alkaline Phosphatase 122 U/L (38-126); Anion Gap 22 mmol/L; Blood Urea Nitrogen <2 mg/dL (9-20); Calcium 9.3 mg/dL (8.4-10.2); Carbon Dioxide 15 mmol/L (22-30); Chloride 104 mmol/L (98-107); Creatine Kinase 571 U/L (55-170); Glucose 108 mg/dL (74-99); Lipase 160 U/L (23-300); Magnesium 1.8 mg/dL (1.6-2.3); Non-African American GFR(CKD) >90 (>60 ml/min/1.73 sqM); Phosphorus 3.8 mg/dL (2.5-4.5); Potassium 3.6 mmol/L (3.5-5.1); Salicylate <1.0 mg/dL; Sodium 141 mmol/L (137-145); Total Protein 8.2 g/dL (6.3-8.2)
[2021-04-27 06:45] LABS: Alcohol 89 mg/dL
[2021-04-27 06:50] LABS: Cocaine Screen,Urine Detected (NotDetected); Phencyclidine Screen,Urine Not Detected (NotDetected); Urn Cannabinoid Scrn Detected (NotDetected)
[2021-04-27 06:51] LABS: Amphetamine Screen,Urine Not Detected (NotDetected); Barbiturate Screen,Urine Not Detected (NotDetected); Benzodiazepines Screen,Urine Not Detected (NotDetected); Methadone Screen, Urine Not Detected (NotDetected); Opiate Screen,Urine Not Detected (NotDetected); Oxycodone Screen, Urine Not Detected (NotDetected); Tricyclic Antidepressant,Urine Not Detected (NotDetected)
[2021-04-27] MEDS ORDERED: MORPHINE SULFATE 4 MG/ML SYRINGE IV PRN (06:56)
[2021-04-27] MEDS ORDERED: NALOXONE 0.4 MG/ML 1 ML VIAL IV PRN (06:56)
[2021-04-27] MEDS ORDERED: ONDANSETRON 4 MG/2 ML VIAL IVP PRN (06:56)
[2021-04-27] MEDS ORDERED: SODIUM CHLORIDE 0.9% 1,000 ML IV SCH (07:00)
[2021-04-27] MEDS ORDERED: LORazepam 2 MG/ML INJ IV PRN ×3 (07:02)
[2021-04-27] MEDS ORDERED: THIAMINE 100 MG/ML 2 ML VIAL IM STA (07:02)
[2021-04-27 08:00] VITALS: RESP 16
[2021-04-27] MEDS ORDERED: MULTIVITAMINS, THERA 1 EACH TAB PO SCH (09:00)
[2021-04-27] MEDS ORDERED: PANTOPRAZOLE 40 MG/10 ML VIAL IV SCH (09:00)
[2021-04-27] MEDS: DIAZEPAM 5 MG/ML 2 ML INJ IVP SCH ×2 (09:04→15:11)
[2021-04-27] MEDS ORDERED: LACOSAMIDE 50 MG TABLET PO SCH (11:00)
--- NOTE | 2021-04-27 11:31 | P.CNNES ---
History of Present Illness Consult date: 04/27/21 Requesting physician: Ra Rodriguez Reason for Consult: seizure History of Present Illness: This is 40-year-old gentleman with history of epilepsy, hypertension, polysubstance use (cocaine, marijuana and alcohol use), heavy alcohol use, alcohol withdrawl seizure, and tobacco use. According to patient he was noti fied that he has seizure according to his fianc early in the morning today and he was asleep during episodes so he does not recall what transpired. He said that he has been drinking heavily on a daily basis and he has been drinking about multiple cans of beers 24 ounces a day. According to him and he stated that he is compliant taking his seizure medication but all he stated when she is on Keppra but not Vimpat but according to the fianc which really related to the nurse that the patient has not been compliant taking his medications. She also notified the nurse that patient has not been compliant with his seizure medication or his blood pressure medication. Patient stated that he has a common up appointment to see a neurologist in May and he has not done so since we saw him in 01/2021. He did acknowledge that he used cocaine. Patient was seen by myself on 01/22/2021 for break-thru seizure. He had clinical status epilepticus and likely due to medication noncompliance as well as alcohol withdrawal seizures. The status resolved. I did an EEG on 01/23/2021 and it was normal. There is no seizure, epileptiform discharge or seizure on the EEG. He had a CT of the head during that admission was normal. The patient was started on Keppra thousand 1 g one tablet twice a day and Vimpat 50mg 1 tab twice a day and I recommended that the patient seizure improves for his medication to be titrated as an outpatient after being compliant with the medication. I recommended for the patient to follow up as an outpatient with a neurologist within 12 weeks. Workup in the hospital consisted of: CBC with differential is within normal limits. Chemistry panel is AST of 148 and ALT of 46. Creatinine kinase is 571 otherwise the rest of the chemistry panel is within normal limits. The glucose is 108 which is unremarkable. Urine drug screen is positive for cocaine, marijuana and the serum alcohol was 89. Review of Systems Review of system: The 12 point system was reviewed and apparent positive and negative per HPI. Past Medical History Past Medical History: Hypertension, Seizure Disorder Additional Past Medical History / Comment(s): Last seizure 06/28/19, occasional low back pain. History of Any Multi-Drug Resistant Organisms: None Reported Past Surgical History: Hernia Repair Additional Past Surgical History / Comment(s): R inguinal hernia repair. Past Anesthesia/Blood Transfusion Reactions: No Reported Reaction Additional Past Anesthesia/Blood Transfusion Reaction / Comment(s): Pt has never had surgery/anesthesia Past Psychological History: No Psychological Hx Reported Past Alcohol Use History: Daily Past Drug Use History: None Reported - Past Family History Father Family Medical History: CVA/TIA Additional Family Medical History / Comment(s): Father is in his 60's Mother Family Medical History: Diabetes Mellitus, Hypertension Additional Family Medical History / Comment(s): Mother is living Medications and Allergies Home Medications Medication Instructions Recorded Confirmed Type cloNIDine HCL [Catapres] 0.1 mg PO TID #90 tab 07/01/19 04/27/21 Rx Lacosamide [Vimpat] 100 mg PO BID 01/22/21 04/27/21 History levETIRAcetam [Keppra] 1,000 mg PO BID 01/22/21 04/27/21 History Cyanocobalamin [Vitamin B-12] 1,000 mcg PO DAILY tab 01/23/21 04/27/21 Rx Folic Acid 1 mg PO DAILY tab 01/23/21 04/27/21 Rx amLODIPine [Norvasc] 5 mg PO DAILY 04/27/21 04/27/21 History Allergies Allergy/AdvReac Type Severity Reaction Status Date / Time No Known Allergies Allergy Verified 04/27/21 07:44 Physical Examination - Vital Signs Vital Signs: Vital Signs Temp Pulse Resp BP Pulse Ox 04/27/21 09:58 88 16 139/95 100 04/27/21 09:05 100 16 142/105 100 04/27/21 08:13 151/118 04/27/21 07:49 98.0 F 97 16 181/116 100 04/27/21 06:45 104 H 20 163/107 100 04/27/21 06:05 98.4 F 110 H 20 202/126 97 Intake and Output 04/26/21 04/27/21 04/27/21 22:59 06:59 14:59 Other: Weight 68.039 kg GENERAL: The patient is lying in bed and is not in acute distress. CHEST: The heart rate is regular rate rhythm. No murmurs to auscultation. No carotid bruit bilaterally. LUNG: Clear to auscultation bilaterally no wheezing noted throughout. Not labored breathing. ABDOMEN/GI: Bowel sounds present in all 4 quadrants. No tenderness to palpation throughout. NEUROLOGICAL: Higher mental function: The patient is awake, alert, oriented to self, place and time. Patient is following commands. No aphasia and no neglect. Cranial nerves: The pupils are round, equal and reactive to light and accommodation. Visual young are full to confrontation throughout. Extraocular movement is intact no nystagmus is noted. Facial sensation is normal to touch throughout. The facial strength is normal throughout. Hearing is normal bilaterally to hand rub. Tongue is midline and moved [id number] without any difficulty. Has tongue bruise over the lateral left side. No dysarthria is noted. Shoulder shrug is normal bilaterally. Motor: Gait is deferred. The strength is 5 over 5 throughout. Normal tone and bulk. Cerebellum: Normal finger to nose heel to barajas bilaterally. Sensation: Sensation is normal to touch throughout. Reflexes (right/left): 2+ throughout. Plantars are downgoing bilaterally. Results - Laboratory Findings CBC and BMP: 04/27/21 06:12 04/27/21 06:12 Abnormal Lab Findings: Abnormal Labs 04/27/21 04/27/21 06:12 06:12 Carbon Dioxide 15 L BUN <2 L Glucose 108 H AST 148 H Creatine Kinase 571 H Urine Protein 1+ H Urine Blood Trace H Urine Cocaine Screen Detected H U Marijuana (THC) Screen Detected H Assessment and Plan Assessment: Provoked seizure due to medication noncompliance and polysubstance use (alcohol and cocaine use) History of epilepsy and episodes of alcohol withdrawl seizures Darnell substance use (current UDS is positive for cocaine and alcohol level of 89) Chronic heavy alcohol use History of marijuana use Plan: * In the ED the patient was given Valium 5 mg once, Ativan 1 mg, morphine 4 mg and the loading dose of Keppra 1000 mg once. * Continue maintenance dose of Keppra 1000 mg every 12 hours and restarted the Vimpat 50 mg 1 tablet every 12 hours. * Seizure precaution and seizure pads are ordered. * Every 4 hours neuro checks * An EEG is not warranted at this time. * Continue thiamine 100 mg 1 tablet twice a day. * Patient was counseled on medication compliance and polysubstance cessation. * I highly recommend the patient to follow-up with a neurologist within 1-2 weeks and if the patient has no further seizures down the line for his antiepileptic drugs to be weaned down as outpatient but will defer that management to his neurologist as outpatient. 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 * We'll defer the rest of the medical management to the primary team. Thank you for the consultation There is no further neurological workup. We'll follow up with the patient sporadically if he continues to be in the hospital. Norm Conner M.D. Neuro-hospitalist Time with Patient: Greater than 30
[2021-04-27 12:43] VITALS: BP 163/106; PULSE 70; TEMP 98.3
[2021-04-27] MEDS ORDERED: THIAMINE 100 MG TAB PO SCH (17:30)
[2021-04-27] MEDS ORDERED: levETIRAcetam IV 1,000 MG in SALINE 1 100ML.BAG IVPB SCH (18:00)
--- NOTE | 2021-04-27 21:43 | HP ---
HISTORY AND PHYSICAL HISTORY AND PHYSICAL/ DISCHARGE SUMMARY: CHIEF COMPLAINT: Seizure disorder. HISTORY OF PRESENT ILLNESS: This 40-year-old gentleman with a past medical history of hypertension, seizure disorder, history of hernia repair, inguinal hernia, being followed by Dr. Dominguez in the outpatient setting. Had her last seizure on 06/28. The patient occasional low back pain also. Patient came with seizure disorder. The patient also has some combative behavior in the ER. The patient was treated symptomatically. The patient also has seen Dr. Conner from Neurology evaluated the patient. The patient had multiple polysubstance abuse also at this time. The patient has a history of noncompliance as well. The patient had breakthrough seizures. The patient ran out of seizure medication which was restarted at this time. Importance of compliance is also being stressed with the patient. There is no history of fever, rigors, chills at this time. PAST MEDICAL HISTORY: Seizure disorder, hypertension, breakthrough seizures, history of noncompliance. MEDICATIONS: Prior to admission: Keppra, Catapres, Norvasc, vitamin B1, Vimpat, folic acid, vitamin B12. Doses reviewed. ALLERGIES: None. FAMILY HISTORY: History of CVA/TIA. SOCIAL HISTORY: History of smoking, alcohol, cocaine, marijuana, polysubstance abuse. REVIEW OF SYSTEMS: ENT: No diminished vision. No diminished hearing. CARDIOVASCULAR: No angina. RESPIRATION: No cough or hemoptysis. GI: As mentioned earlier. : No dysuria. NERVOUS SYSTEM: As mentioned earlier. ALLERGY/IMMUNOLOGY: No asthma or hayfever. MUSCULOSKELETAL: As mentioned earlier. HEMATOLOGY/ONCOLOGY: No history of anemia. ENDOCRINE: No history of diabetes or hypothyroidism. CONSTITUTIONAL: As mentioned earlier. DERMATOLOGY: Negative. RHEUMATOLOGY: Negative. PSYCHIATRY: As mentioned earlier. PHYSICAL EXAM: Alert and oriented times three. Pulse 70. Blood pressure . Respirations 16, temperature 98.2, pulse ox 97% on room air. HEENT: Conjunctivae normal. NECK: No JVD. CARDIOVASCULAR: S1, S2 muffled. RESPIRATORY SYSTEM: Breath sounds diminished at the bases. A few scattered rhonchi. ABDOMEN: Soft, nontender. No mass palpable. LEGS: No edema. No swelling. NERVOUS SYSTEM: Higher functions as mentioned. Moves all four limbs. LYMPHATICS: No lymph nodes palpable in the neck, axillae or groin. SKIN: No ulcer, no rashes and no bleeding. JOINTS: No active deforming arthropathy. LABS: CBC within normal limits. Sodium 140, potassium 3.6. ASSESSMENT: 1. Acute seizure disorder possibly alcoholic seizures and breakthrough seizures. 2. Previous seizure disorder and breakthrough seizures. 3. History of noncompliance. 4. History of EtOH. 5. History of polysubstance abuse. 6. Decreased CO2. 7. Increased AST, alcoholic hepatitis, increased creatinine kinase. Mild rhabdomyolysis. 8. History of cocaine and THC in the urine. 9. History of hypertension. 10.History of hernia repair. 11.History of continued ongoing nicotine dependence. 12.FULL CODE. RECOMMENDATIONS AND DISCUSSION: This 40-year-old gentleman who presented with multiple medical issues, at this time I recommend continue the current medications. Currently the patient is nonfocal. Patient is able to ambulate. There are no tremors. No focal deficits. Neurology saw the patient. Recommended outpatient followup. Importance of compliance as mentioned is stressed with the patient. DISCHARGE ADVICE AND MEDICATIONS: 1. Diet is cardiac diet. 2. Activity limited until followup. 3. Follow up with Dr. Glass in one week. 4. Follow up with Dr. Dominguez as recommended. 5. No driving for 6 months per [place] law. 6. Catapres 0.1 p.o. t.i.d. 7. Folic acid 1 mg daily. 8. Keppra 1000 mg p.o. b.i.d. 9. Multivitamins 1 p.o. daily. 10.Norvasc 5 mg p.o. daily. 11.Vimpat 100 mg p.o. b.i.d. 12.Thiamine 100 mg p.o. b.i.d. 13.Vitamin B12, 1000 mcg p.o. daily. Once again, the patient discharged in stable condition with guarded prognosis. Counseling and rehab as an outpatient. MMODL / IJN: [id number] /
== END 2021-04-27 15:12 | disposition home or self-care (01) | DRG 101 ==
LOC: EC 06:04 → 3SCARD 06:56
PROVIDERS: ADMIT Hospitalist; ATTEND Hospitalist
DX: G40.909 Epilepsy, unspecified, not intractable, without status epilepticus (principal); F10.239 Alcohol dependence with withdrawal, unspecified; M62.82 Rhabdomyolysis; F17.210 Nicotine dependence, cigarettes, uncomplicated; F14.10 Cocaine abuse, uncomplicated; T46.5X6A Underdosing of other antihypertensive drugs, initial encounter; F12.10 Cannabis abuse, uncomplicated; I10 Essential (primary) hypertension; T42.6X6A Underdosing of other antiepileptic and sedative-hypnotic drugs, initial encounter; K70.10 Alcoholic hepatitis without ascites; Y90.4 Blood alcohol level of 80-99 mg/100 ml; Z79.899 Other long term (current) drug therapy; Z82.49 Family history of ischemic heart disease and other diseases of the circulatory system; Z83.3 Family history of diabetes mellitus; Z91.19 Patient's noncompliance with other medical treatment and regimen; Z91.128 Patient's intentional underdosing of medication regimen for other reason; Z82.3 Family history of stroke; Z98.890 Other specified postprocedural states
CPT/HCPCS: 36415; 80053; 80143; 80179; 80306; 80320; 81001; 82550; 83690; 83735; 84100; 85025; 93005; 96361; 96372; 96374; 96375; 99285

== ENCOUNTER 2021-09-26 07:18 | Emergency (ER) | payer OTHER ==
[2021-09-26 07:29] VITALS: TEMP 99.5
[2021-09-26] MEDS ORDERED: oxyCODONE-APAP 10-325MG 1 EACH TAB PO STA (07:45)
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
--- NOTE | 2021-09-26 08:40 | XR ---
Left wrist. HISTORY: Pain. COMPARISON: None. TECHNIQUE: 4 views of the left wrist are obtained. FINDINGS: There is a minimally displaced fracture the base of the second metacarpal. The fracture does appear t o involve the articular surface. There is no dislocation. There is no radiopaque foreign body or abnormal soft tissue calcification. IMPRESSION: Minimally displaced intra-articular fracture of the base of the second metacarpal.
--- NOTE | 2021-09-26 08:41 | XR ---
Left hand HISTORY: Pain findings on COMPARISON: None. TECHNIQUE: 3 views left hand were obtained. FINDINGS: There is a minimally displaced intra-articular fracture of the base of the second metacarpal bone. Re maining osseous structures are intact. There is no dislocation. There is no radiopaque foreign body o r abnormal soft tissue calcification. Impression: minimally displaced intra-articular fracture of the base of the second metacarpal bone.
[2021-09-26 09:22] VITALS: BP 169/99; PULSE 99; RESP 20
== END 2021-09-26 09:14 | disposition home or self-care (01) ==
LOC: EC 07:18
DX: S62.311A Displaced fracture of base of second metacarpal bone, left hand, initial encounter for closed fracture (principal); F17.200 Nicotine dependence, unspecified, uncomplicated; I10 Essential (primary) hypertension; Y04.0XXA Assault by unarmed brawl or fight, initial encounter
CPT/HCPCS: 29125; 99283

== ENCOUNTER 2022-03-29 09:51 | Inpatient (IN) | payer OTHER ==
[2022-03-29 09:59] LABS: Glucose,Whole Blood 216 mg/dL (70-110)
[2022-03-29 10:27] LABS: Basophils # (A) 0.1 k/uL (0-0.2); Basophils % (A) 1 %; Eosinophils # (A) 0.1 k/uL (0-0.7); Eosinophils % (A) 1 %; HGB 18.1 gm/dL (13.0-17.5); Hypochromasia Slight; Lymphocytes # (A) 2.3 k/uL (1.0-4.8); Lymphocytes % (A) 21 %; MCH 32.5 pg (25.0-35.0); MCHC 31.7 g/dL (31.0-37.0); MCV 102.4 fL (80.0-100.0); Macrocytosis Slight; Mean Platelet Volume 7.7; Monocytes # (A) 0.4 k/uL (0-1.0); Monocytes % (A) 4 %; Neutrophils # (A) 7.6 k/uL (1.3-7.7); Neutrophils % (A) 71 %; Platelet Count 204 k/uL (150-450); RBC 5.56 m/uL (4.30-5.90); RDW 14.4 % (11.5-15.5); WBC 10.7 k/uL (3.8-10.6)
[2022-03-29 10:40] LABS: Glucose,Whole Blood 154 mg/dL (70-110)
[2022-03-29] MEDS ORDERED: DIAZEPAM 5 MG/ML 2 ML INJ IVP STA (10:40)
[2022-03-29] MEDS ORDERED: SODIUM CHLORIDE 0.9% 1,000 ML IV ONE (10:40)
[2022-03-29 10:47] LABS: HCT 56.9 % (39.0-53.0)
[2022-03-29 10:52] LABS: Appearance,Urine Clear (Clear); Bacteria,Urine Occasional /hpf; Bilirubin,Urine Negative (Negative); Blood,Urine Moderate (Negative); Color,Urine Light Yellow; Glucose,Urine (UA) 3+ (Negative); Ketones,Urine 1+ (Negative); Leukocyte Esterase,Urine Negative (Negative); Mucus,Urine Rare /hpf; Nitrite,Urine Negative (Negative); PH, Urine 5.5 (5.0-8.0); Protein,Urine 1+ (Negative); RBC,Urine 3 /hpf (0-5); Specific Gravity,Urine 1.008 (1.001-1.035); Squamous Epithelial Cell,Urine <1 /hpf (0-4); Urobilinogen,Urine <2.0 mg/dL (<2.0); WBC,Urine 3 /hpf (0-5)
[2022-03-29 10:54] LABS: Amphetamine Screen,Urine Not Detected (NotDetected); Barbiturate Screen,Urine Not Detected (NotDetected); Benzodiazepines Screen,Urine Not Detected (NotDetected); Cocaine Screen,Urine Detected (NotDetected); Methadone Screen, Urine Not Detected (NotDetected); Opiate Screen,Urine Not Detected (NotDetected); Oxycodone Screen, Urine Not Detected (NotDetected); Phencyclidine Screen,Urine Not Detected (NotDetected); Tricyclic Antidepressant,Urine Not Detected (NotDetected); Urn Cannabinoid Scrn Detected (NotDetected)
[2022-03-29 11:17] LABS: AST 237 U/L (17-59); African American GFR (CKD) 87 (>60 ml/min/1.73 sqM); Albumin 5.1 g/dL (3.5-5.0); Alcohol 10 mg/dL; Alkaline Phosphatase 188 U/L (38-126); Blood Urea Nitrogen 4 mg/dL (9-20); Calcium 9.6 mg/dL (8.4-10.2); Chloride 105 mmol/L (98-107); Glucose 139 mg/dL (74-99); Lipase 94 U/L (23-300); Magnesium 2.2 mg/dL (1.6-2.3); Non-African American GFR(CKD) 75 (>60 ml/min/1.73 sqM); Potassium 4.1 mmol/L (3.5-5.1); Sodium 142 mmol/L (137-145); Total Bilirubin 1.7 mg/dL (0.2-1.3); Total Protein 9.3 g/dL (6.3-8.2)
[2022-03-29 11:33] LABS: ALT 86 U/L (4-49); Carbon Dioxide <5 mmol/L (22-30)
--- NOTE | 2022-03-29 12:03 | ED ---
Seizure HPI - General Chief Complaint: Seizure Stated Complaint: Detox/seizure/hypoglycemia Time Seen by Provider: 03/29/22 09:55 Source: patient, EMS, RN notes reviewed Mode of arrival: EMS Limitations: no limitations - History of Present Illness Initial Comments: This a 41-year-old male presents emergency Department via EMS with complaints of seizure. Patient does have a history of seizures has had multiple seizures this morning which patient was postictal upon arrival of EMS. Patient states he does normally drink daily states he is not drinking alcohol today. Patient states he may be withdrawing. He does admit that he has a history of seizures on Keppra thousand milligrams twice daily. Patient has no specific complaints states he feels severely nauseated denies any significant headache, blurred vision or any focal weakness. - Related Data Home Medications Medication Instructions Recorded Confirmed Lacosamide [Vimpat] 100 mg PO DAILY 03/29/22 03/29/22 levETIRAcetam [Keppra] 1,000 mg PO DAILY 03/29/22 03/29/22 Allergies Allergy/AdvReac Type Severity Reaction Status Date / Time No Known Allergies Allergy Verified 03/29/22 10:01 Review of Systems ROS Statement: Those systems with pertinent positive or pertinent negative responses have been documented in the HPI. ROS Other: All systems not noted in ROS Statement are negative. Past Medical History Past Medical History: Hypertension, Seizure Disorder Additional Past Medical History / Comment(s): Last seizure 06/28/19, occasional low back pain. History of Any Multi-Drug Resistant Organisms: None Reported Past Surgical History: Hernia Repair Additional Past Surgical History / Comment(s): R inguinal hernia repair. Past Anesthesia/Blood Transfusion Reactions: No Reported Reaction Additional Past Anesthesia/Blood Transfusion Reaction / Comment(s): Pt has never had surgery/anesthesia Past Psychological History: No Psychological Hx Reported Smoking Status: Current every day smoker Past Alcohol Use History: Abuse, Daily Past Drug Use History: Marijuana - Past Family History Father Family Medical History: CVA/TIA Additional Family Medical History / Comment(s): Father is in his 60's Mother Family Medical History: Diabetes Mellitus, Hypertension Additional Family Medical History / Comment(s): Mother is living General Exam Limitations: no limitations General appearance: alert, in no apparent distress Head exam: Present: atraumatic, normocephalic, normal inspection Eye exam: Present: normal appearance, PERRL, EOMI. Absent: scleral icterus, conjunctival injection, periorbital swelling ENT exam: Present: normal exam, normal oropharynx, mucous membranes moist Neck exam: Present: normal inspection, full ROM. Absent: tenderness, meningi smus, lymphadenopathy Respiratory exam: Present: normal lung sounds bilaterally. Absent: respiratory distress, wheezes, rales, rhonchi, stridor Cardiovascular Exam: Present: normal rhythm, tachycardia, normal heart sounds. Absent: systolic murmur, diastolic murmur, rubs, gallop, clicks GI/Abdominal exam: Present: soft, normal bowel sounds. Absent: distended, tenderness, guarding, rebound, rigid Neurological exam: Present: alert, oriented X3, reflexes normal. Absent: motor sensory deficit Course Vital Signs 03/29/22 03/29/22 03/29/22 09:56 10:06 10:38 Temperature 97.9 F Pulse Rate 115 H 111 H 122 H Respiratory 18 18 26 H Rate Blood Pressure 205/135 186/113 238/137 O2 Sat by Pulse 98 98 97 Oximetry 03/29/22 03/29/22 03/29/22 10:47 10:59 12:09 Temperature Pulse Rate 112 H 114 H 94 Respiratory 18 16 18 Rate Blood Pressure 171/121 212/144 O2 Sat by Pulse 99 96 98 Oximetry 03/29/22 03/29/22 03/29/22 12:27 13:01 13:14 Temperature Pulse Rate 106 H 89 90 Respiratory 20 18 18 Rate Blood Pressure 230/128 192/129 173/118 O2 Sat by Pulse 98 99 97 Oximetry Medical Decision Making - Medical Decision Making 41-year-old presented for seizure. Patient does have a history of seizures this may be a complex seizure with alcohol withdrawal, hypertensive urgency, recurrent seizures. Patient was given initially given Valium, patient was given additional dose of Ativan given recurrent seizures in the emergency department. Dr. perez did evaluate the patient in the emergency Department recommend patient to the ICU did contact Dr. Conner pulmonology who evaluated the patient patient will be admitted to ICU for further treatment and monitoring - Lab Data Result diagrams: 03/29/22 10:13 03/29/22 10:53 Lab Results 03/29/22 03/29/22 03/29/22 Range/Units 09:56 10:13 10:13 WBC 10.7 H (3.8-10.6) k/uL RBC 5.56 (4.30-5.90) m/uL Hgb 18.1 H (13.0-17.5) gm/dL Hct 56.9 H (39.0-53.0) % MCV 102.4 H (80.0-100.0) fL MCH 32.5 (25.0-35.0) pg MCHC 31.7 (31.0-37.0) g/dL RDW 14.4 (11.5-15.5) % Plt Count 204 (150-450) k/uL MPV 7.7 Neutrophils % 71 % Lymphocytes % 21 % Monocytes % 4 % Eosinophils % 1 % Basophils % 1 % Neutrophils # 7.6 (1.3-7.7) k/uL Lymphocytes # 2.3 (1.0-4.8) k/uL Monocytes # 0.4 (0-1.0) k/uL Eosinophils # 0.1 (0-0.7) k/uL Basophils # 0.1 (0-0.2) k/uL Hypochromasia Slight Macrocytosis Slight Sodium (137-145) mmol/L Potassium (3.5-5.1) mmol/L Chloride (98-107) mmol/L Carbon Dioxide (22-30) mmol/L Anion Gap mmol/L BUN (9-20) mg/dL Creatinine (0.66-1.25) mg/dL Est GFR (CKD-EPI)AfAm (>60 ml/min/1.73 sqM) Est GFR (CKD-EPI)NonAf (>60 ml/min/1.73 sqM) Glucose (74-99) mg/dL POC Glucose (mg/dL) 216 H (70-110) mg/dL POC Glu Environmental [employer] Manager ID Fontaine, Wendi Calcium (8.4-10.2) mg/dL Magnesium (1.6-2.3) mg/dL Total Bilirubin (0.2-1.3) mg/dL AST (17-59) U/L ALT (4-49) U/L Alkaline Phosphatase (38-126) U/L Total Protein (6.3-8.2) g/dL Albumin (3.5-5.0) g/dL Lipase (23-300) U/L Urine Color Light Yellow Urine Appearance Clear (Clear) Urine pH 5.5 (5.0-8.0) Ur Specific Reading 1.008 (1.001-1.035) Urine Protein 1+ H (Negative) Urine Glucose (UA) 3+ H (Negative) Urine Ketones 1+ H (Negative) Urine Blood Moderate H (Negative) Urine Nitrite Negative (Negative) Urine Bilirubin Negative (Negative) Urine Urobilinogen <2.0 (<2.0) mg/dL Ur Leukocyte Esterase Negative (Negative) Urine RBC 3 (0-5) /hpf Urine WBC 3 (0-5) /hpf Ur Squamous Epith Cells <1 (0-4) /hpf Urine Bacteria Occasional H (None) /hpf Urine Mucus Rare H (None) /hpf Urine Opiates Screen Not Detected (NotDetected) Ur Oxycodone Screen Not Detected (NotDetected) Urine Methadone Screen Not Detected (NotDetected) Ur Propoxyphene Screen Not Detected (NotDetected) Ur Barbiturates Screen Not Detected (NotDetected) U Tricyclic Antidepress Not Detected (NotDetected) Ur Phencyclidine Scrn Not Detected (NotDetected) Ur Amphetamines Screen Not Detected (NotDetected) U Methamphetamines Scrn Detected H (NotDetected) U Benzodiazepines Scrn Not Detected (NotDetected) Urine Cocaine Screen Detected H (NotDetected) U Marijuana (THC) Screen Detected H (NotDetected) Serum Alcohol mg/dL 03/29/22 03/29/22 Range/Units 10:39 10:53 WBC (3.8-10.6) k/uL RBC (4.30-5.90) m/uL Hgb (13.0-17.5) gm/dL Hct (39.0-53.0) % MCV (80.0-100.0) fL MCH (25.0-35.0) pg MCHC (31.0-37.0) g/dL RDW (11.5-15.5) % Plt Count (150-450) k/uL MPV Neutrophils % % Lymphocytes % % Monocytes % % Eosinophils % % Basophils % % Neutrophils # (1.3-7.7) k/uL Lymphocytes # (1.0-4.8) k/uL Monocytes # (0-1.0) k/uL Eosinophils # (0-0.7) k/uL Basophils # (0-0.2) k/uL Hypochromasia Macrocytosis Sodium 142 (137-145) mmol/L Potassium 4.1 (3.5-5.1) mmol/L Chloride 105 (98-107) mmol/L Carbon Dioxide <5 L* (22-30) mmol/L Anion Gap mmol/L BUN 4 L (9-20) mg/dL Creatinine 1.20 (0.66-1.25) mg/dL Est GFR (CKD-EPI)AfAm 87 (>60 ml/min/1.73 sqM) Est GFR (CKD-EPI)NonAf 75 (>60 ml/min/1.73 sqM) Glucose 139 H (74-99) mg/dL POC Glucose (mg/dL) 154 H (70-110) mg/dL POC Glu Environmental Field Office Manager ID Goldy Stahl Calcium 9.6 (8.4-10.2) mg/dL Magnesium 2.2 (1.6-2.3) mg/dL Total Bilirubin 1.7 H (0.2-1.3) mg/dL AST 237 H (17-59) U/L ALT 86 H (4-49) U/L Alkaline Phosphatase 188 H (38-126) U/L Total Protein 9.3 H (6.3-8.2) g/dL Albumin 5.1 H (3.5-5.0) g/dL Lipase 94 (23-300) U/L Urine Color Urine Appearance (Clear) Urine pH (5.0-8.0) Ur Specific Reading (1.001-1.035) Urine Protein (Negative) Urine Glucose (UA) (Negative) Urine Ketones (Negative) Urine Blood (Negative) Urine Nitrite (Negative) Urine Bilirubin (Negative) Urine Urobilinogen (<2.0) mg/dL Ur Leukocyte Esterase (Negative) Urine RBC (0-5) /hpf Urine WBC (0-5) /hpf Ur Squamous Epith Cells (0-4) /hpf Urine Bacteria (None) /hpf Urine Mucus (None) /hpf Urine Opiates Screen (NotDetected) Ur Oxycodone Screen (NotDetected) Urine Methadone Screen (NotDetected) Ur Propoxyphene Screen (NotDetected) Ur Barbiturates Screen (NotDetected) U Tricyclic Antidepress (NotDetected) Ur Phencyclidine Scrn (NotDetected) Ur Amphetamines Screen (NotDetected) U Methamphetamines Scrn (NotDetected) U Benzodiazepines Scrn (NotDetected) Urine Cocaine Screen (NotDetected) U Marijuana (THC) Screen (NotDetected) Serum Alcohol 10 mg/dL Disposition Clinical Impression: Polysubstance abuse, Generalized seizure, Alcohol withdrawal, Hypertensive emergency Disposition: ADMITTED IP TO THIS HOSP Condition: Fair Instructions (If sedation given, give patient instructions): Seizure/Epilepsy Discharge Instructions & Follow-Up Is patient prescribed a controlled substance at d/c from ED?: No Referrals: Nitza Dominguez MD [Primary Care Provider] - 1-2 days Time of Disposition: 12:03
[2022-03-29] MEDS ORDERED: LORazepam 2 MG/ML INJ IV STA (12:19)
[2022-03-29] MEDS ORDERED: LABETALOL 5 MG/ML VIAL MDV IVP STA (12:27)
[2022-03-29] MEDS ORDERED: hydrALAZINE HCL 20 MG/ML 1 ML VIAL IVP STA ×2 (13:16→13:54)
--- NOTE | 2022-03-29 13:21 | CT ---
EXAMINATION TYPE: CT brain wo con DATE OF EXAM: 03/29/2022 COMPARISON: CT dated 01/22/2021 HISTORY: History of seizures and HTN. Has not refilled medications CT DLP: 1080.4 mGycm Automated exposure control for dose reduction was used. TECHNIQUE: CT scan of the brain is performed without IV contrast administration. FINDINGS: Linear hypodensity is seen in the right basal ganglia region, stable. No acute intracranial hemorrhag e. No gross acute cortical infarct. No midline shift, herniation or ventriculomegaly. Unremarkable perla-white matter differentiation, basal cisterns, sella and CP angles. No gross space-o ccupying lesion, vasogenic edema or mass effect. Unremarkable orbits. Markedly enlarged nasopharyngeal soft tissue, underlying lesion cannot be exclud ed, please correlate clinically. Clear visualized paranasal sinuses and mastoid air cells. Unremarkab le calvarial bones. IMPRESSION: No acute intracranial abnormality or gross space-occupying lesion by this nonenhanced CT scan. Markedly enlarged nasopharyngeal soft tissue, underlying lesion cannot be excluded, please correlate clinically.
[2022-03-29] MEDS ORDERED: NALOXONE 0.4 MG/ML 1 ML VIAL IV PRN (13:28)
[2022-03-29] MEDS ORDERED: LORazepam 2 MG/ML INJ IV PRN ×3 (13:29)
[2022-03-29] MEDS ORDERED: levETIRAcetam IV 1,000 MG in SALINE 1 100ML.BAG IVPB STA (13:30)
--- NOTE | 2022-03-29 13:43 | P.CNPUL ---
History of Present Illness Consult date: 03/29/22 Requesting physician: Zack Rodríguez Reason for consult: other Chief complaint: Hypertension, alcohol withdrawal, seizure. History of present illness: Pulmonary consult dated 03/29/2022. 41-year-old black male who was seen in the emergency department on March 29. He is apparently brought in by EMS because of witnessed seizure. The patient does have a seizure history, and has not been compliant with his seizure medications which include Vimpat and Keppra. This is according to his girlfriend. The patient also drinks heavily, and had a positive drug screen for both cocaine and marijuana. All the history is obtained from the girlfriend. The patient himself cannot give any history. Of note was the fact that he was quite hypertensive in the emergency room, and initially tachycardic. His blood pressure still elevated. His heart rate is down into the high 80s. The patient did receive some Ativan, in the emergency department, for his 2 seizures in the ER. They lasted about 30-45 seconds each. The patient is currently on room air. The patient is receiving a basic IV. He has no ALLERGIES. He apparently has no other medical history. He does smoke cigarettes. He does use marijuana according to the girlfriend. White count 10.7, hemoglobin 18.1, hematocrit 56.9, and platelet count normal. Sodium 142, potassium 4.1, chlorides 105, CO2 is less than 5, anion gap is more than 20, BUN 4, and creatinine 1.20. Bilirubin is elevated at 1.7. AST is 237, ALT is 86. Lipase is 94. Urine has some occasional bacteria, nitrite and leukocyte esterase were negative. Brain CT was showing no acute intracranial abnormality. Review of Systems REVIEW OF SYSTEMS: Review of systems cannot be obtained from this patient. According to the girlfriend, the patient was sent in to the ER, by EMS, because of seizure disorder. CONSTITUTIONAL: [Negative.] NEUROLOGIC: [ Negative.] HEENT: [ Negative.] CARDIAC: [Negative.] PULMONARY: [Negative.] GI: [Negative.] : [Negative.] RHEUMATOLOGIC: [ Negative.] IMMUNOLOGIC: [ Negative.] ENDOCRINE: [Negative. ] DERMATOLOGIC: [Negative.] Past Medical History Past Medical History: Hypertension, Seizure Disorder Additional Past Medical History / Comment(s): Last seizure 06/28/19, occasional low back pain. History of Any Multi-Drug Resistant Organisms: None Reported Past Surgical History: Hernia Repair Additional Past Surgical History / Comment(s): R inguinal hernia repair. Past Anesthesia/Blood Transfusion Reactions: No Reported Reaction Additional Past Anesthesia/Blood Transfusion Reaction / Comment(s): Pt has never had surgery/anesthesia Past Psychological History: No Psychological Hx Reported Smoking Status: Current every day smoker Past Alcohol Use History: Abuse, Daily Past Drug Use History: Marijuana - Past Family History Father Family Medical History: CVA/TIA Additional Family Medical History / Comment(s): Father is in his 60's Mother Family Medical History: Diabetes Mellitus, Hypertension Additional Family Medical History / Comment(s): Mother is living Medications and Allergies Home Medications Medication Instructions Recorded Confirmed Type Lacosamide [Vimpat] 100 mg PO DAILY 03/29/22 03/29/22 History levETIRAcetam [Keppra] 1,000 mg PO DAILY 03/29/22 03/29/22 History Allergies Allergy/AdvReac Type Severity Reaction Status Date / Time No Known Allergies Allergy Verified 03/29/22 10:01 Physical Exam Osteopathic Statement: *. No significant issues noted on an osteopathic structural exam other than those noted in the History and Physical/Consult. Vitals: Vital Signs Temp Pulse Resp BP Pulse Ox 03/29/22 13:14 90 18 173/118 97 03/29/22 13:01 89 18 192/129 99 03/29/22 12:27 106 H 20 230/128 98 03/29/22 12:09 94 18 212/144 98 03/29/22 10:59 114 H 16 171/121 96 03/29/22 10:47 112 H 18 99 03/29/22 10:38 122 H 26 H 238/137 97 03/29/22 10:06 111 H 18 186/113 98 03/29/22 09:56 97.9 F 115 H 18 205/135 98 Intake and Output 03/28/22 03/29/22 03/29/22 22:59 06:59 14:59 Other: Weight 72.121 kg No acute distress, poorly responsive, probably postictal, 2 L saturation 99%. HEENT examination is grossly unremarkable. Neck supple. Full range of motion. No adenopathy thyromegaly or neck vein distention. Cardiovascular examination reveals regular rhythm rate. S1-S2 normal. No S3 or S4. No discernible murmur noted. Heart rate 90 bpm. Lungs reveal mostly clear breath sounds. Minimal rhonchi. No wheezes or crackles. Breath sounds equal bilaterally. Abdomen soft bowel sounds are heard. No masses or tenderness. Extremities are intact. No cyanosis clubbing or edema. Skin is without rash or lesion. Neurologic examination cannot be adequately assessed. The patient does move all 4 extremities. Results - Laboratory Findings CBC and BMP: 03/29/22 10:13 03/29/22 10:53 Abnormal lab findings: Abnormal Labs 03/29/22 03/29/22 03/29/22 09:56 10:13 10:13 WBC 10.7 H Hgb 18.1 H Hct 56.9 H MCV 102.4 H Carbon Dioxide BUN Glucose POC Glucose (mg/dL) 216 H Total Bilirubin AST ALT Alkaline Phosphatase Total Protein Albumin Urine Protein 1+ H Urine Glucose (UA) 3+ H Urine Ketones 1+ H Urine Blood Moderate H Urine Bacteria Occasional H Urine Mucus Rare H U Methamphetamines Scrn Detected H Urine Cocaine Screen Detected H U Marijuana (THC) Screen Detected H 03/29/22 03/29/22 10:39 10:53 WBC Hgb Hct MCV Carbon Dioxide <5 L* BUN 4 L Glucose 139 H POC Glucose (mg/dL) 154 H Total Bilirubin 1.7 H AST 237 H ALT 86 H Alkaline Phosphatase 188 H Total Protein 9.3 H Albumin 5.1 H Urine Protein Urine Glucose (UA) Urine Ketones Urine Blood Urine Bacteria Urine Mucus U Methamphetamines Scrn Urine Cocaine Screen U Marijuana (THC) Screen Assessment and Plan Assessment: Acute seizure disorder, in a patient with chronic seizure history, and likely noncompliant with anti-seizure medications. Probable alcohol-induced seizures. Anion gap metabolic acidosis, likely secondary to lactic acidemia. Chronic alcohol abuse. Polysubstance abuse. Vague history of hypertension. Rule out alcohol-induced liver disease. Plan: Plan dated 03/29/2022. The patient can be admitted to the intensive care unit, overnight, for further monitoring and management. Patient's at high risk for alcohol withdrawal syndrome, and delirium tremens. Additional recommendations and suggestions are forthcoming. The patient will receive nasal O2 and IV fluids. No additional recommendations are made. Prognosis is certainly guarded. Labs, x-rays, and medications are reviewed. We will continue to follow the patient and make recommendations where appropriate. Time with Patient: Greater than 30
--- NOTE | 2022-03-29 15:41 | P.CNNES ---
History of Present Illness Consult date: 03/29/22 Requesting physician: Zack E Marcos Reason for Consult: recurrent seizure History of Present Illness: This is a 41-year-old gentleman with medical history of seizure due to medication noncompliance and polysubstance use, history of epilepsy and some of the episodes to do all call withdrawal seizures, polysubstance use for cocaine and alcohol, chronic heavy alcohol use, marijuana use who presented to the emergency department on 03/29/2022 the EMS as of seizure. Some of the history is obtained from the patient's mother was at bedside as well as the ED team. Per the patient's mother she stated that the patient is not compliant with his medication and he supposed to be on Keppra at thousand milligram 1 tablet twice a day as well as Vimpat 100 mg without twice a day but he's only taken once a day. It seems the patient had multiple seizures today and was post ictal upon arrival. He continues to drink alcohol heavily. Per the ED team the patient the was given 5 mg and Valium, 2 mg of Ativan. His mother stated that he continues to drink heavily but unsure when was the last drink. Patient is known to me and I seen this patient in the hospital last on 04/27/2021 for the same episode for seizures. At that time the patient was supposed to be on Keppra at thousand milligram every 12 hours and I restarted his Vimpat of 50 mg 1 tablet every 12 hours. Some other workup in our facility during this hospital visit consisted of: MCV is 102.4. Glucose is 216. The carbon dioxide was a 5. AST is 237 and ALT is 86 his liver function is suggestive of alcohol use. Urine drug screen is positive for methamphetamine, cocaine, marijuana. His serum alcohol was less than 10. CT of the head is reported as no acute intracranial abnormality or gross space occupying lesion by this non-has computed tomography scan. Markedly enlarged nasopharyngeal soft tissue, underlying lesion cannot be excluded, please correla te clinically. I personally reviewed CT and there is not acute or subacute ischemic stroke or intracranial bleed. Review of Systems Review of system: The 12 point system was reviewed and apparent positive and negative per HPI. Past Medical History Past Medical History: Hypertension, Seizure Disorder Additional Past Medical History / Comment(s): Last seizure 06/28/19, occasional low back pain. History of Any Multi-Drug Resistant Organisms: None Reported Past Surgical History: Hernia Repair Additional Past Surgical History / Comment(s): R inguinal hernia repair. Past Anesthesia/Blood Transfusion Reactions: No Reported Reaction Additional Past Anesthesia/Blood Transfusion Reaction / Comment(s): Pt has never had surgery/anesthesia Past Psychological History: No Psychological Hx Reported Smoking Status: Current every day smoker Past Alcohol Use History: Abuse, Daily Past Drug Use History: Marijuana - Past Family History Father Family Medical History: CVA/TIA Additional Family Medical History / Comment(s): Father is in his 60's Mother Family Medical History: Diabetes Mellitus, Hypertension Additional Family Medical History / Comment(s): Mother is living Medications and Allergies Home Medications Medication Instructions Recorded Confirmed Type Lacosamide [Vimpat] 100 mg PO DAILY 03/29/22 03/29/22 History levETIRAcetam [Keppra] 1,000 mg PO DAILY 03/29/22 03/29/22 History Allergies Allergy/AdvReac Type Severity Reaction Status Date / Time No Known Allergies Allergy Verified 03/29/22 10:01 Physical Examination - Vital Signs Vital Signs: Vital Signs Temp Pulse Resp BP Pulse Ox 03/29/22 14:25 93 18 195/125 97 03/29/22 13:14 90 18 173/118 97 03/29/22 13:01 89 18 192/129 99 03/29/22 12:27 106 H 20 230/128 98 03/29/22 12:09 94 18 212/144 98 03/29/22 10:59 114 H 16 171/121 96 03/29/22 10:47 112 H 18 99 03/29/22 10:38 122 H 26 H 238/137 97 03/29/22 10:06 111 H 18 186/113 98 03/29/22 09:56 97.9 F 115 H 18 205/135 98 Intake and Output 03/29/22 03/29/22 03/29/22 06:59 14:59 22:59 Other: Weight 72.121 kg GENERAL: The patient is lying in bed and is not in acute distress. CHEST: The heart rate is regular rate rhythm. No murmurs to auscultation. LUNG: Clear to auscultation bilaterally no wheezing noted throughout. Not labored breathing. ABDOMEN/GI: Bowel sounds present in all 4 quadrants. No tenderness to palpation throughout. NEUROLOGICAL: Limited because of his condition. Higher mental function: The patient is drowsy but is awakeable to voice. Oriented to self, place and time. Patient is following commands. No aphasia and no neglect. Cranial nerves: The pupils are round, equal and reactive to light. The facial strength is normal throughout. Tongue is midline and moved [id number] without any difficulty. No dysarthria is noted. Shoulder shrug is normal bilaterally. Motor: The strength is limited in assessing individual muscles. But is lifting bilateral upper above gravity and ankles antigravity. Normal tone and bulk. Cerebellum: Normal finger to nose heel to chin bilaterally. Reflexes (right/left): 2+ throughout. Plantars are mute bilaterally. Results - Laboratory Findings CBC and BMP: 03/29/22 10:13 03/29/22 10:53 Abnormal Lab Findings: Abnormal Labs 03/29/22 03/29/22 03/29/22 09:56 10:13 10:13 WBC 10.7 H Hgb 18.1 H Hct 56.9 H MCV 102.4 H Carbon Dioxide BUN Glucose POC Glucose (mg/dL) 216 H Total Bilirubin AST ALT Alkaline Phosphatase Total Protein Albumin Urine Protein 1+ H Urine Glucose (UA) 3+ H Urine Ketones 1+ H Urine Blood Moderate H Urine Bacteria Occasional H Urine Mucus Rare H U Methamphetamines Scrn Detected H Urine Cocaine Screen Detected H U Marijuana (THC) Screen Detected H 03/29/22 03/29/22 10:39 10:53 WBC Hgb Hct MCV Carbon Dioxide <5 L* BUN 4 L Glucose 139 H POC Glucose (mg/dL) 154 H Total Bilirubin 1.7 H AST 237 H ALT 86 H Alkaline Phosphatase 188 H Total Protein 9.3 H Albumin 5.1 H Urine Protein Urine Glucose (UA) Urine Ketones Urine Blood Urine Bacteria Urine Mucus U Methamphetamines Scrn Urine Cocaine Screen U Marijuana (THC) Screen Assessment and Plan Assessment: Break-throughout seizure due to multifactorial: Medication non-compliance (taki ng Keppra 1 gm and vimpat daily rather than bid, alcohol withdrawal and poysubstance use)--currently stable History of similar presentation in the past due to above History of epilepsy and some of the episodes to do alcohol withdrawal seizures polysubstance use (cocaine and alcohol, chronic heavy alcohol use, methamphetamine) Marijuana use Medication Non-compliance Plan: I notified the ED team to load him with the epidural 1 g once My restart him on his Keppra 1 g every 12 hours and will restart vimpat 100mg bid. Every 4 hours neuro checks An EEG is not warranted since the patient has known history of seizure and is noncompliant with medication and he is doing better now. Placed on seizure precautions seizure pads. Patient is on thiamine 100 mg 1 tablet twice a day Is on Ativan when necessary for CIWA protocol and will defer management to primary team. We'll defer the rest of the medical measure the primary team Patient was counseled on medication compliance and avoiding polysubstance use. Recommend the patient to follow-up with his neurologist as an outpatient within 1-2 weeks The plan was discussed with the patient and his mother is at bedside as well as the ED team If the patient continues to the be seizure free from a neurologic perspective no additional workup is needed and he would be clear for discharge. Thank you for the consultation. Norm Conner M.D. Neuro-Hospitalist Time with Patient: Greater than 30
--- NOTE | 2022-03-29 16:31 | P.HPIM ---
History of Present Illness This is a pleasant 41 years old male with past medical history of seizure, delirium tremens, alcohol abuse, occasional back pain, hypertension however he is not on blood pressure medication Patient is coming from home for having 3 grand mal seizures each lasting 30 seconds to 1 minute. The pt was very postictal by EMS and he was given oral glucose and 25mg of dextrose for blood glucose of 60. 4mg of zofran given for nausea. Pt presents to the emergency room he was alert and awake. He had 2 suspected seizure when with jerking movement of the extremities, that's been followed thereafter by tonic-clonic seizure that lasted about 30 seconds before Ativan was provided. As per ED team patient drinks 6 beers a day however he did not drink beer daily and he was ready to go to the store when he collapsed on the second thing he remembered that he was with EMS. When I went to see the patient was just came back from CAT scan of the head. And he was still under the influence of Ativan from recent surgery. He had no seizure-like activity. He was sleepy. He answered me about his name and woke up but go back to sleep right away and not waking up again with verbal and tactile stimuli However no asymmetry was noted in his examination. At home, Patient is on Keppra 1000 mg daily and Vimpat 1000 mg Vitals reviewed, He is tachycardic with heart rate about 106. Blood pressure 230/128 Not showing mild leukocytosis of 10.7, BMP is unremarkable, carbon dioxide less than 5. Creatinine 1.2. Total bilirubin is 1.7, AST 237, ALT 86 Urine analysis showed glucosuria with moderate ketones. Urine tract disease is positive for methamphetamine, cocaine and marijuana. Serum alcohol level was stating In the emergency room received labetalol IV, Valium and normal saline CT of the head is negative for acute event Review of Systems N/a patient is confused and could not provide information Past Medical History Past Medical History: Hypertension, Seizure Disorder Additional Past Medical History / Comment(s): Last seizure 06/28/19, occasional low back pain. History of Any Multi-Drug Resistant Organisms: None Reported Past Surgical History: Hernia Repair Additional Past Surgical History / Comment(s): R inguinal hernia repair. Past Anesthesia/Blood Transfusion Reactions: No Reported Reaction Additional Past Anesthesia/Blood Transfusion Reaction / Comment(s): Pt has never had surgery/anesthesia Past Psychological History: No Psychological Hx Reported Smoking Status: Current every day smoker Past Alcohol Use History: Abuse, Daily Past Drug Use History: Marijuana - Past Family History Father Family Medical History: CVA/TIA Additional Family Medical History / Comment(s): Father is in his 60's Mother Family Medical History: Diabetes Mellitus, Hypertension Additional Family Medical History / Comment(s): Mother is living Medications and Allergies Home Medications Medication Instructions Recorded Confirmed Type Lacosamide [Vimpat] 100 mg PO DAILY 03/29/22 03/29/22 History levETIRAcetam [Keppra] 1,000 mg PO DAILY 03/29/22 03/29/22 History Allergies Allergy/AdvReac Type Severity Reaction Status Date / Time No Known Allergies Allergy Verified 03/29/22 10:01 Physical Exam Vitals: Vital Signs Temp Pulse Resp BP Pulse Ox 03/29/22 12:27 106 H 20 230/128 98 03/29/22 12:09 94 18 212/144 98 03/29/22 10:59 114 H 16 171/121 96 03/29/22 10:47 112 H 18 99 03/29/22 10:38 122 H 26 H 238/137 97 03/29/22 10:06 111 H 18 186/113 98 03/29/22 09:56 97.9 F 115 H 18 205/135 98 Intake and Output 03/28/22 03/29/22 03/29/22 22:59 06:59 14:59 Other: Weight 72.121 kg -GENERAL: The patient is sleepy, barely wake up to verbal stimuli (just received Atrovent), not in any acute distress. Well developed, well nourished. HEENT: Pupils are round and equally reacting to light. EOMI. No scleral icterus. No conjunctival pallor. Normocephalic, atraumatic. No pharyngeal erythema. No thyromegaly. CARDIOVASCULAR: S1 and S2 present. No murmurs, rubs, or gallops. PULMONARY: Chest is clear to auscultation, no wheezing or crackles. ABDOMEN: Soft, nontender, nondistended, normoactive bowel sounds. No palpable organomegaly. MUSCULOSKELETAL: No joint swelling or deformity. EXTREMITIES: No cyanosis, clubbing, or pedal edema. NEUROLOGICAL: Gross neurological examination did not reveal any focal deficits. SKIN: No rashes. No petechiae Results CBC & Chem 7: 03/29/22 10:13 03/29/22 10:53 Labs: Abnormal Lab Results - Last 24 Hours (Table) 03/29/22 03/29/22 03/29/22 Range/Units 09:56 10:13 10:13 WBC 10.7 H (3.8-10.6) k/uL Hgb 18.1 H (13.0-17.5) gm/dL Hct 56.9 H (39.0-53.0) % MCV 102.4 H (80.0-100.0) fL Carbon Dioxide (22-30) mmol/L BUN (9-20) mg/dL Glucose (74-99) mg/dL POC Glucose (mg/dL) 216 H (70-110) mg/dL Total Bilirubin (0.2-1.3) mg/dL AST (17-59) U/L ALT (4-49) U/L Alkaline Phosphatase (38-126) U/L Total Protein (6.3-8.2) g/dL Albumin (3.5-5.0) g/dL Urine Protein 1+ H (Negative) Urine Glucose (UA) 3+ H (Negative) Urine Ketones 1+ H (Negative) Urine Blood Moderate H (Negative) Urine Bacteria Occasional H (None) /hpf Urine Mucus Rare H (None) /hpf U Methamphetamines Scrn Detected H (NotDetected) Urine Cocaine Screen Detected H (NotDetected) U Marijuana (THC) Screen Detected H (NotDetected) 03/29/22 03/29/22 Range/Units 10:39 10:53 WBC (3.8-10.6) k/uL Hgb (13.0-17.5) gm/dL Hct (39.0-53.0) % MCV (80.0-100.0) fL Carbon Dioxide <5 L* (22-30) mmol/L BUN 4 L (9-20) mg/dL Glucose 139 H (74-99) mg/dL POC Glucose (mg/dL) 154 H (70-110) mg/dL Total Bilirubin 1.7 H (0.2-1.3) mg/dL AST 237 H (17-59) U/L ALT 86 H (4-49) U/L Alkaline Phosphatase 188 H (38-126) U/L Total Protein 9.3 H (6.3-8.2) g/dL Albumin 5.1 H (3.5-5.0) g/dL Urine Protein (Negative) Urine Glucose (UA) (Negative) Urine Ketones (Negative) Urine Blood (Negative) Urine Bacteria (None) /hpf Urine Mucus (None) /hpf U Methamphetamines Scrn (NotDetected) Urine Cocaine Screen (NotDetected) U Marijuana (THC) Screen (NotDetected) Assessment and Plan Assessment: Several seizures attacks, breakthrough seizure. Present on admission . 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 Neurology consult Continue with CIWA protocol Vision is counseled extensively about avoiding illicit substance including cocaine Monitored glucose continue with CIWA and family Check hemoglobin A1c We wouldn't recommend for patient Monitored in the ICU at least for 24-48 hours to stabilization, especially with very significantly high blood pressure and t achycardia most likely to sympathetic over activation and substance abuse and possible underlying hypertension as well. Very severe hypertension might also contribute to his seizure-like activity Labs and medication were reviewed.. Continue same treatment. Continue with symptomatic treatment. Resume home medication. Monitor lytes and vitals. DVT and GI prophylaxis. Further recommendations depends on the clinical course of the patient DVT prophylaxis: Subcutaneous heparin GI Prophylaxis: Pepcid PT/OT: Pending Prognosis is guarded
[2022-03-29] MEDS: THIAMINE 100 MG TAB PO SCH (18:57)
[2022-03-29 19:23] LABS: Glucose,Whole Blood 84 mg/dL (70-110)
[2022-03-29] MEDS ORDERED: CLEVIDIPINE BUTYRATE 25 MG in EMPTY BAG 1 BAG IV SCH (19:45)
[2022-03-29] MEDS: levETIRAcetam IV 1,000 MG in SALINE 1 100ML.BAG IVPB SCH (21:13)
[2022-03-29] MEDS: LACOSAMIDE IV 100 MG in SODIUM CHLORIDE 0.9% 50 ML IVPB SCH (21:32)
[2022-03-29 22:18] LABS: Glucose,Whole Blood 81 mg/dL (70-110)
--- NOTE | 2022-03-30 06:28 | P.PN ---
Subjective Progress Note Date: 03/30/22 Principal diagnosis: Seizure disorder. Pulmonary consult dated 03/29/2022. 41-year-old black male who was seen in the emergency department on March 29. He is apparently brought in by EMS because of witnessed seizure. The patient does have a seizure history, and has not been compliant with his seizure medications which include Vimpat and Keppra. This is according to his girlfriend. The patient also drinks heavily, and had a positive drug screen for both cocaine and marijuana. All the history is obtained from the girlfriend. The patient himself cannot give any history. Of note was the fact that he was quite hypertensive in the emergency room, and initially tachycardic. His blood pressure still elevated. His heart rate is down into the high 80s. The patient did receive some Ativan, in the emergency department, for his 2 seizures in the ER. They lasted about 30-45 seconds each. The patient is currently on room air. The patient is receiving a basic IV. He has no ALLERGIES. He apparently has no other medical history. He does smoke cigarettes. He does use marijuana according to the girlfriend. White count 10.7, hemoglobin 18.1, hematocrit 56.9, and platelet count normal. Sodium 142, potassium 4.1, chlorides 105, CO2 is less than 5, anion gap is more than 20, BUN 4, and creatinine 1.20. Bilirubin is elevated at 1.7. AST is 237, ALT is 86. Lipase is 94. Urine has some occasional bacteria, nitrite and leukocyte esterase were negative. Brain CT was showing no acute intracranial abnormality. Progress note dated 03/30/2022. The patient is seen in the intensive care unit, room 257. The patient's currently on 4 L nasal cannula. Is getting saline at 20 mL an hour. He was on Cleveprex for blood pressure control, but that has been on for a number of hours. He only received 1 mg of Ativan last night. The patient is currently comfortable and resting. Hemodynamically, he has been stable. No respiratory issues. No additional seizures. Currently, no laboratory data from today. Objective - Vital Signs Vital signs: Vital Signs Temp 98.8 F 03/30/22 04:00 Pulse 100 03/30/22 06:00 Resp 22 03/30/22 06:00 BP 127/82 03/30/22 06:00 Pulse Ox 94 L 03/30/22 06:00 FiO2 Intake & Output 03/29/22 03/29/22 03/30/22 06:59 18:59 06:59 Intake Total 5.601 Output Total 600 Balance -594.399 Weight 72.121 kg 69.1 kg Intake: Intake, IV Titration 5.601 Amount Clevidipine Butyrate 25 5.601 mg In Empty Bag 1 bag @ 1 MG/HR 2 mls/hr IV .Q24H [facility] Rx#:[id number] Output: Urine 600 Other: Voiding Method Urinal # Voids 0 - Exam No acute distress, 4 L saturation is 97%. The patient is much more awake today. HEENT examination is grossly unremarkable. Neck supple. Full range of motion. No adenopathy thyromegaly or neck vein distention. Cardiovascular examination reveals regular rhythm rate. S1-S2 normal. No S3 or S4. No discernible murmur noted. Heart rate 95 bpm. Lungs reveal mostly clear breath sounds. Minimal scattered rhonchi. No wheezes or crackles. Abdomen soft bowel sounds are heard. No masses or tenderness. Extremities are intact. No cyanosis clubbing or edema. Skin is without rash or lesion. Neurologic examination is brief but nonfocal. - Labs CBC & Chem 7: 03/29/22 10:13 03/29/22 10:53 Labs: Abnormal Lab Results - Last 24 Hours (Table) 03/29/22 03/29/22 03/29/22 Range/Units 09:56 10:13 10:13 WBC 10.7 H (3.8-10.6) k/uL Hgb 18.1 H (13.0-17.5) gm/dL Hct 56.9 H (39.0-53.0) % MCV 102.4 H (80.0-100.0) fL Carbon Dioxide (22-30) mmol/L BUN (9-20) mg/dL Glucose (74-99) mg/dL POC Glucose (mg/dL) 216 H (70-110) mg/dL Total Bilirubin (0.2-1.3) mg/dL AST (17-59) U/L ALT (4-49) U/L Alkaline Phosphatase (38-126) U/L Total Protein (6.3-8.2) g/dL Albumin (3.5-5.0) g/dL Urine Protein 1+ H (Negative) Urine Glucose (UA) 3+ H (Negative) Urine Ketones 1+ H (Negative) Urine Blood Moderate H (Negative) Urine Bacteria Occasional H (None) /hpf Urine Mucus Rare H (None) /hpf U Methamphetamines Scrn Detected H (NotDetected) Urine Cocaine Screen Detected H (NotDetected) U Marijuana (THC) Screen Detected H (NotDetected) 03/29/22 03/29/22 Range/Units 10:39 10:53 WBC (3.8-10.6) k/uL Hgb (13.0-17.5) gm/dL Hct (39.0-53.0) % MCV (80.0-100.0) fL Carbon Dioxide <5 L* (22-30) mmol/L BUN 4 L (9-20) mg/dL Glucose 139 H (74-99) mg/dL POC Glucose (mg/dL) 154 H (70-110) mg/dL Total Bilirubin 1.7 H (0.2-1.3) mg/dL AST 237 H (17-59) U/L ALT 86 H (4-49) U/L Alkaline Phosphatase 188 H (38-126) U/L Total Protein 9.3 H (6.3-8.2) g/dL Albumin 5.1 H (3.5-5.0) g/dL Urine Protein (Negative) Urine Glucose (UA) (Negative) Urine Ketones (Negative) Urine Blood (Negative) Urine Bacteria (None) /hpf Urine Mucus (None) /hpf U Methamphetamines Scrn (NotDetected) Urine Cocaine Screen (NotDetected) U Marijuana (THC) Screen (NotDetected) Assessment and Plan Assessment: Acute seizure disorder, in a patient with chronic seizure history, and likely noncompliant with anti-seizure medications. Probable alcohol-induced seizures. Anion gap metabolic acidosis, likely secondary to lactic acidemia. Chronic alcohol abuse. Polysubstance abuse. Vague history of hypertension. Rule out alcohol-induced liver disease. Plan: Plan dated 03/29/2022. The patient can be admitted to the intensive care unit, overnight, for further monitoring and management. Patient's at high risk for alcohol withdrawal syndrome, and delirium tremens. Additional recommendations and suggestions are forthcoming. The patient will receive nasal O2 and IV fluids. No additional recommendations are made. Prognosis is certainly guarded. Labs, x-rays, and medications are reviewed. We will continue to follow the patient and make rec ommendations where appropriate. Plan dated 03/30/2022. The patient can be transferred out of the intensive care unit. The patient can go to the general medical floor. Does not need telemetry. Additional recommendations and suggestions are forthcoming. Labs, x-rays, and medications are reviewed. The patient's blood pressure is been well controlled. The patient only received 1 mg of Ativan through the night, per the CIWA protocol. Time with Patient: Less than 30
[2022-03-30] MEDS: THIAMINE 100 MG TAB PO SCH (06:44)
[2022-03-30 07:03] VITALS: PULSE 96
[2022-03-30 08:03] LABS: Basophils % (A) 0 %; Eosinophils % (A) 0 %; HCT 52.1 % (39.0-53.0); HGB 17.5 gm/dL (13.0-17.5); Lymphocytes # (A) 1.2 k/uL (1.0-4.8); Lymphocytes % (A) 12 %; MCH 32.6 pg (25.0-35.0); MCHC 33.5 g/dL (31.0-37.0); Mean Platelet Volume 7.3; Monocytes # (A) 0.6 k/uL (0-1.0); Monocytes % (A) 5 %; Neutrophils # (A) 8.6 k/uL (1.3-7.7); Neutrophils % (A) 81 %; Platelet Count 176 k/uL (150-450); RBC 5.36 m/uL (4.30-5.90); RDW 14.9 % (11.5-15.5); WBC 10.6 k/uL (3.8-10.6)
[2022-03-30 08:04] LABS: MCV 97.3 fL (80.0-100.0)
[2022-03-30 08:09] LABS: ALT 60 U/L (4-49); AST 94 U/L (17-59); African American GFR (CKD) >90 (>60 ml/min/1.73 sqM); Albumin 3.9 g/dL (3.5-5.0); Alkaline Phosphatase 150 U/L (38-126); Anion Gap 13 mmol/L; Bilirubin, Delta 0.5 mg/dL (0.0-0.2); Bilirubin,Unconjugated 2.5 mg/dL (0.0-1.1); Blood Urea Nitrogen 5 mg/dL (9-20); Calcium 8.8 mg/dL (8.4-10.2); Carbon Dioxide 19 mmol/L (22-30); Chloride 102 mmol/L (98-107); Glucose 85 mg/dL (74-99); Non-African American GFR(CKD) >90 (>60 ml/min/1.73 sqM); Potassium 4.3 mmol/L (3.5-5.1); Sodium 134 mmol/L (137-145); Total Protein 7.3 g/dL (6.3-8.2)
[2022-03-30 08:35] VITALS: BP 127/80; RESP 15; TEMP 98.3
[2022-03-30] MEDS: LACOSAMIDE IV 100 MG in SODIUM CHLORIDE 0.9% 50 ML IVPB SCH (08:58)
[2022-03-30] MEDS ORDERED: amLODIPine 10 MG TAB PO SCH (09:00)
[2022-03-30] MEDS: levETIRAcetam IV 1,000 MG in SALINE 1 100ML.BAG IVPB SCH (09:01)
--- NOTE | 2022-03-30 09:15 | P.PN ---
Subjective Progress Note Date: 03/30/22 The patient seen at bedside and he feels he is doing much better. No further seizures. Objective - Vital Signs Vital signs: Vital Signs Temp 98.3 F 03/30/22 08:00 Pulse 96 03/30/22 08:00 Resp 15 03/30/22 08:00 BP 127/80 03/30/22 08:00 Pulse Ox 94 L 03/30/22 08:00 FiO2 Intake & Output 03/29/22 03/30/22 03/30/22 18:59 06:59 18:59 Intake Total 5.601 200 Output Total 600 Balance -594.399 200 Weight 72.121 kg 69.1 kg Intake: Intake, IV Titration 5.601 Amount Clevidipine Butyrate 25 5.601 mg In Empty Bag 1 bag @ 1 MG/HR 2 mls/hr IV .Q24H [facility]IFF Rx#:[id number] Oral 200 Output: Urine 600 Other: Voiding Method Urinal Urinal # Voids 0 0 - Exam GENERAL: The patient is lying in bed and is not in acute distress. NEUROLOGICAL: Higher mental function: The patient is awake, alert, oriented to self, place and time. Patient is following commands. No aphasia and no neglect. Cranial nerves: Visual young are full to confrontation throughout. Extraocular movement is intact no nystagmus is noted. Facial sensation is normal to touch throughout. The facial strength is normal throughout. Tongue is midline and moved [id number] without any difficulty. Hoarse voice. Shoulder shrug is normal bilaterally. Motor: The strength is 5 over 5 throughout. Normal tone and bulk. Cerebellum: Normal finger to nose bilaterally. Sensation: Sensation is normal to touch throughout.. - Labs CBC & Chem 7: 03/30/22 07:26 03/30/22 07:26 Labs: Abnormal Lab Results - Last 24 Hours (Table) 03/29/22 03/29/22 03/29/22 Range/Units 09:56 10:13 10:13 WBC 10.7 H (3.8-10.6) k/uL Hgb 18.1 H (13.0-17.5) gm/dL Hct 56.9 H (39.0-53.0) % MCV 102.4 H (80.0-100.0) fL Neutrophils # (1.3-7.7) k/uL Sodium (137-145) mmol/L Carbon Dioxide (22-30) mmol/L BUN (9-20) mg/dL Glucose (74-99) mg/dL POC Glucose (mg/dL) 216 H (70-110) mg/dL Total Bilirubin (0.2-1.3) mg/dL Unconjugated Bilirubin (0.0-1.1) mg/dL Delta Bilirubin (0.0-0.2) mg/dL AST (17-59) U/L ALT (4-49) U/L Alkaline Phosphatase (38-126) U/L Total Protein (6.3-8.2) g/dL Albumin (3.5-5.0) g/dL Urine Protein 1+ H (Negative) Urine Glucose (UA) 3+ H (Negative) Urine Ketones 1+ H (Negative) Urine Blood Moderate H (Negative) Urine Bacteria Occasional H (None) /hpf Urine Mucus Rare H (None) /hpf U Methamphetamines Scrn Detected H (NotDetected) Urine Cocaine Screen Detected H (NotDetected) U Marijuana (THC) Screen Detected H (NotDetected) 03/29/22 03/29/22 03/30/22 Range/Units 10:39 10:53 07:26 WBC (3.8-10.6) k/uL Hgb (13.0-17.5) gm/dL Hct (39.0-53.0) % MCV (80.0-100.0) fL Neutrophils # 8.6 H (1.3-7.7) k/uL Sodium (137-145) mmol/L Carbon Dioxide <5 L* (22-30) mmol/L BUN 4 L (9-20) mg/dL Glucose 139 H (74-99) mg/dL POC Glucose (mg/dL) 154 H (70-110) mg/dL Total Bilirubin 1.7 H (0.2-1.3) mg/dL Unconjugated Bilirubin (0.0-1.1) mg/dL Delta Bilirubin (0.0-0.2) mg/dL AST 237 H (17-59) U/L ALT 86 H (4-49) U/L Alkaline Phosphatase 188 H (38-126) U/L Total Protein 9.3 H (6.3-8.2) g/dL Albumin 5.1 H (3.5-5.0) g/dL Urine Protein (Negative) Urine Glucose (UA) (Negative) Urine Ketones (Negative) Urine Blood (Negative) Urine Bacteria (None) /hpf Urine Mucus (None) /hpf U Methamphetamines Scrn (NotDetected) Urine Cocaine Screen (NotDetected) U Marijuana (THC) Screen (NotDetected) 03/30/22 Range/Units 07:26 WBC (3.8-10.6) k/uL Hgb (13.0-17.5) gm/dL Hct (39.0-53.0) % MCV (80.0-100.0) fL Neutrophils # (1.3-7.7) k/uL Sodium 134 L (137-145) mmol/L Carbon Dioxide 19 L (22-30) mmol/L BUN 5 L (9-20) mg/dL Glucose (74-99) mg/dL POC Glucose (mg/dL) (70-110) mg/dL Total Bilirubin 3.0 H (0.2-1.3) mg/dL Unconjugated Bilirubin 2.5 H (0.0-1.1) mg/dL Delta Bilirubin 0.5 H (0.0-0.2) mg/dL AST 94 H (17-59) U/L ALT 60 H (4-49) U/L Alkaline Phosphatase 150 H (38-126) U/L Total Protein (6.3-8.2) g/dL Albumin (3.5-5.0) g/dL Urine Protein (Negative) Urine Glucose (UA) (Negative) Urine Ketones (Negative) Urine Blood (Negative) Urine Bacteria (None) /hpf Urine Mucus (None) /hpf U Methamphetamines Scrn (NotDetected) Urine Cocaine Screen (NotDetected) U Marijuana (THC) Screen (NotDetected) Assessment and Plan Assessment: Break-throughout seizure due to multifactorial: Medication non-compliance (taking Keppra 1 gm and vimpat daily rather than bid, alcohol withdrawal and poysubstance use)--currently stable History of similar presentation in the past due to above History of epilepsy and some of the episodes to do alcohol withdrawal seizures polysubstance use (cocaine and alcohol, chronic heavy alcohol use, methamphetamine) Marijuana use Medication Non-compliance Plan: Continue home medication of Keppra 1 g every 12 hours and vimpat 100mg bid. Every 4 hours neuro checks An EEG is not warranted since the patient has known history of seizure and is noncompliant with medication and he is doing better now. Placed on seizure precautions seizure pads. Patient is on thiamine 100 mg 1 tablet twice a day Is on Ativan when necessary for CIWA protocol and will defer management to primary team. We'll defer the rest of the medical measure the primary team Patient was counseled on medication compliance and avoiding polysubstance use. Recommend the patient to follow-up with his neurologist as an outpatient within 1-2 weeks The plan was discussed with the patient and primary team. Patient is clear for discharge from neurological perspective. Please notify neurology team if any further concerns. Norm Conner M.D. Neuro-Hospitalist Time with Patient: Less than 30
--- NOTE | 2022-03-30 22:00 | P.DS ---
Providers Date of admission: 03/29/22 13:24 Attending physician: Zack Rodríguez MD Consults: 03/29/22 13:07 Consult Physician Urgent Consulting Provider: Sotero Conner Consult Reason/Comments: recurrent seizure , hypertensive urgency Do you want consulting provider notified?: Already Contacted 03/29/22 13:09 Consult Physician Urgent Consulting Provider: Norm Conner Consult Reason/Comments: recurrent seizure Do you want consulting provider notified?: Yes Primary care physician: Alberto Goddard Hospital Course: Several seizures attacks, breakthrough seizure. Present on admission . Most likely exacerbated by cocaine abuse and hypertension, and non-adherence with medication, possible alcohol withdrawal Hypertension with urgency on admission and tachycardia most likely related to cocaine abuse. 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 The pt was very postictal by EMS and he was given oral glucose and 25mg of dextrose for blood glucose of 60. 4mg of zofran given for nausea. Pt presents to the emergency room he was alert and awake. He had 2 suspected seizure when with jerking movement of the extremities, that's been followed thereafter by tonic-clonic seizure that lasted about 30 seconds before Ativan was provided. Patient gets stabilized and was transferred to the ICU for close monitoring. He was restarted on his seizure medication Keppra and Vimpat. Neurologist recommendation, patient instructed he should take it as twice daily not once a day and he verbalized understanding and acceptance. Importance of aggressive therapy explained to him extensively and he agrees with the recommendation. No more seizure activities and neurologist was following the case closely. No need for EEG. Neurologist. I discussed with Dr. Cyr the neurologist today. Her for discharge. His high blood pressure and heart rate came back to normal upon discharge Also patient is counseled extensively about avoiding alcohol and cocaine, methamphetamine, marijuana or any illicit substance, he verbalized understanding and acceptance. Patient declined resources for detox rehab stating that it was binge use of these substances during a constitution party and he has known patient to go back to it. Patient today denies any headache, weakness or numbness. No chest pain or dyspnea. No change in urine or bowel habits. No fever. Was cleared for discharge by neurologist Problems and management plan were discussed with the patient and he verbalized understanding and acceptance Patient was found stable and can be discharged home however he needs follow-up as an outpatient. Patient was instructed to follow up with PCP Dr. Dominguez within one week and patient agrees, patient told me he wants to follow up with Dr. Casi church on discharge. Also he has neurologist but he could not remember his name or contact information but he may have it at home however contact information to neurologist Dr. Glass is provided for him with instruction to call in one week and he verbalized understanding and acceptance as well His liver enzymes elevation most likely secondary to alcohol abuse however he was referred to heel breaster Dr. Gasca as an outpatient in 1 week and patient informed and he agrees Physical exam Gen: patient is a AAOx3, no distress CVS: S1-S2, RRR, no murmur Lungs: B/L CTA, no wheezing Abdomen: soft, no distention, no tenderness, positive bowel sounds Extremity: no leg edema or induration Time spent more than 35 minutes Patient Condition at Discharge: Fair Plan - Discharge Summary Discharge Rx Participant: No New Discharge Prescriptions: New Thiamine [Vitamin B-1] 100 mg PO BID-W/MEALS #30 tab Continue Lacosamide [Vimpat] 100 mg PO BID 30 Days #60 tab levETIRAcetam [Keppra] 1,000 mg PO BID 30 Days #60 Discharge Medication List Lacosamide [Vimpat] 100 mg PO BID 30 Days #60 tab 03/30/22 [Rx] Thiamine [Vitamin B-1] 100 mg PO BID-W/MEALS #30 tab 03/30/22 [Rx] levETIRAcetam [Keppra] 1,000 mg PO BID 30 Days #60 03/30/22 [Rx] Follow up Appointment(s)/Referral(s): Nitza Dominguez MD [Primary Care Provider] - 1-2 days Vanita Gasca MD [STAFF PHYSICIAN] - 1 Week (liver doctor for abnormal liver enzymes) Holly Glass MD [Medical Doctor] - 1 Week (neurolgist for seizure disoder ) Patient Instructions/Handouts: Seizure/Epilepsy Discharge Instructions & Follow-Up Activity/Diet/Wound Care/Special Instructions: heart healthy diet activity is restricted till you see your doctor we recommend to avoid all illicit substances including no cocaine , no teofilo karl, no methamphetamine Discharge Disposition: HOME SELF-CARE
== END 2022-03-30 10:10 | disposition home or self-care (01) | DRG 101 ==
LOC: EC 09:51 → 2SICU 13:24
PROVIDERS: ADMIT Internal Medicine; ATTEND Internal Medicine
PROC: HZ2ZZZZ Detoxification Services for Substance Abuse Treatment (ICD-10-PCS; principal; 2022-03-29)
DX: G40.409 Other generalized epilepsy and epileptic syndromes, not intractable, without status epilepticus (principal); F10.239 Alcohol dependence with withdrawal, unspecified; I16.1 Hypertensive emergency; E87.2 Acidosis; R00.0 Tachycardia, unspecified; F14.10 Cocaine abuse, uncomplicated; R74.01 Elevation of levels of liver transaminase levels; I16.0 Hypertensive urgency; Y90.0 Blood alcohol level of less than 20 mg/100 ml; F15.10 Other stimulant abuse, uncomplicated; F12.10 Cannabis abuse, uncomplicated; F17.210 Nicotine dependence, cigarettes, uncomplicated; E16.2 Hypoglycemia, unspecified; I10 Essential (primary) hypertension; Z79.899 Other long term (current) drug therapy; Z82.3 Family history of stroke; Z82.49 Family history of ischemic heart disease and other diseases of the circulatory system; Z83.3 Family history of diabetes mellitus; Z91.14 Patient's other noncompliance with medication regimen; Z87.19 Personal history of other diseases of the digestive system; Z71.41 Alcohol abuse counseling and surveillance of alcoholic; Z71.51 Drug abuse counseling and surveillance of drug abuser
CPT/HCPCS: 36415; 70450; 80048; 80053; 80076; 80177; 80306; 80320; 81001; 83036; 83690; 83735; 85025; 93005; 96361; 96374; 96375; 96376; 99285

== ENCOUNTER 2022-09-19 06:04 | Inpatient (IN) | payer OTHER ==
[2022-09-19 06:10] LABS: Glucose,Whole Blood 161 mg/dL (70-110)
[2022-09-19] MEDS ORDERED: SODIUM CHLORIDE 0.9% 1,000 ML IV STA (06:10)
[2022-09-19] MEDS ORDERED: levETIRAcetam IV 1,000 MG in SALINE 1 100ML.BAG IVPB STA (06:11)
[2022-09-19] MEDS ORDERED: LORazepam 2 MG/ML INJ IM STA (06:31)
[2022-09-19 07:07] LABS: Basophils # (A) 0.1 k/uL (0-0.2); Basophils % (A) 1 %; Eosinophils % (A) 1 %; HGB 18.9 gm/dL (13.0-17.5); Lymphocytes # (A) 3.7 k/uL (1.0-4.8); Lymphocytes % (A) 40 %; MCH 31.7 pg (25.0-35.0); MCHC 32.3 g/dL (31.0-37.0); MCV 98.2 fL (80.0-100.0); Mean Platelet Volume 8.5; Monocytes # (A) 0.5 k/uL (0-1.0); Monocytes % (A) 6 %; Neutrophils # (A) 4.7 k/uL (1.3-7.7); Neutrophils % (A) 51 %; Platelet Count 149 k/uL (150-450); RBC 5.96 m/uL (4.30-5.90); RDW 12.7 % (11.5-15.5); WBC 9.3 k/uL (3.8-10.6)
[2022-09-19 07:09] LABS: HCT 58.5 % (39.0-53.0)
[2022-09-19 07:23] LABS: AST 92 U/L (17-59); African American GFR (CKD) >90 (>60 ml/min/1.73 sqM); Albumin 5.3 g/dL (3.5-5.0); Alcohol <10 mg/dL; Alkaline Phosphatase 152 U/L (38-126); Anion Gap 28 mmol/L; Blood Urea Nitrogen 5 mg/dL (9-20); Calcium 9.3 mg/dL (8.4-10.2); Chloride 103 mmol/L (98-107); Glucose 164 mg/dL (74-99); Non-African American GFR(CKD) 88 (>60 ml/min/1.73 sqM); Potassium 3.9 mmol/L (3.5-5.1); Sodium 140 mmol/L (137-145); Total Protein 9.5 g/dL (6.3-8.2)
--- NOTE | 2022-09-19 07:24 | CT ---
EXAMINATION TYPE: CT brain wo con DATE OF EXAM: 09/19/2022 COMPARISON: 03/29/2022 HISTORY: seizure CT DLP: 1142.[address] of the brain was performed. The ventricles, basal cisterns and sulci overlying the cerebral convexities demonstrate a normal appe arance. There is no evidence for intracranial hemorrhage or sulcal effacement. No mass effects are seen. Osseous calvarium is intact. If symptoms persist consider MRI as clinically warranted. IMPRESSION: 1. No acute intracranial process is seen at this time.
[2022-09-19 07:45] LABS: Appearance,Urine Clear (Clear); Bilirubin,Urine Negative (Negative); Blood,Urine Large (Negative); Color,Urine Light Yellow; Glucose,Urine (UA) 1+ (Negative); Ketones,Urine Trace (Negative); Leukocyte Esterase,Urine Negative (Negative); Mucus,Urine Rare /hpf; Nitrite,Urine Negative (Negative); PH, Urine 6.5 (5.0-8.0); Protein,Urine 2+ (Negative); RBC,Urine 4 /hpf (0-5); Urobilinogen,Urine <2.0 mg/dL (<2.0); WBC,Urine <1 /hpf (0-5)
[2022-09-19 07:55] LABS: Carbon Dioxide 9 mmol/L (22-30)
[2022-09-19 08:13] LABS: ALT 61 U/L (4-49)
[2022-09-19] MEDS ORDERED: NALOXONE 0.4 MG/ML 1 ML VIAL IV PRN (08:13)
--- NOTE | 2022-09-19 08:13 | ED ---
Seizure HPI - General Chief Complaint: Seizure Stated Complaint: Seizure Time Seen by Provider: 09/19/22 06:10 Source: EMS Mode of arrival: EMS - History of Present Illness Initial Comments: 42-year-old male with past medical history of seizure disorder, hypertension who presents to the emergency department after he had a seizure at home. His child's mother reports that he had a seizure that lasted a few minutes at home. Usually he will be post ictal for a while however the patient was agitated and walking around. Upon arrival into the emergency department the patient is able to provide some history. States that he is supposed to be on Keppra and Vimpat however has not been taking the medications as he does not have any refills. He has been off of the medications for one month. Chart is reviewed and states that the patient does have history of alcohol and cocaine use. Family at bedside state that the patient continues to drink. There was no reported trauma. No fevers. No other alleviating, precipitating or modifying factors - Related Data Previous Rx's Medication Instructions Recorded Folic Acid 1 mg PO DAILY #30 tab 09/20/22 Lacosamide [Vimpat] 100 mg PO BID 30 Days #60 tab 09/20/22 Nicotine 21Mg/24Hr Patch [Habitrol] 1 patch TRANSDERM DAILY #7 patch 09/20/22 Thiamine [Vitamin B-1] 100 mg PO BID-W/MEALS #60 tab 09/20/22 amLODIPine [Norvasc] 10 mg PO DAILY #30 tab 09/20/22 chlordiazePOXIDE HCl [Librium] 0 mg PO DIRECTED 2 Days #6 cap 09/20/22 cloNIDine HCL [Catapres] 0.1 mg PO BID #60 tab 09/20/22 levETIRAcetam [Keppra] 750 mg PO Q12HR #60 tab 09/22/22 Allergies Allergy/AdvReac Type Severity Reaction Status Date / Time No Known Allergies Allergy Verified 09/19/22 10:59 Review of Systems ROS Statement: Those systems with pertinent positive or pertinent negative responses have been documented in the HPI. ROS Other: All systems not noted in ROS Statement are negative. Past Medical History Past Medical History: Hypertension, Seizure Disorder Additional Past Medical History / Comment(s): Last seizure 06/28/19, occasional low back pain. History of Any Multi-Drug Resistant Organisms: None Reported Past Surgical History: Hernia Repair Additional Past Surgical History / Comment(s): R inguinal hernia repair. Past Anesthesia/Blood Transfusion Reactions: No Reported Reaction Additional Past Anesthesia/Blood Transfusion Reaction / Comment(s): Pt has never had surgery/anesthesia Past Psychological History: No Psychological Hx Reported Smoking Status: Current every day smoker Past Alcohol Use History: Abuse, Daily Past Drug Use History: Marijuana - Past Family History Father Family Medical History: CVA/TIA Additional Family Medical History / Comment(s): Father is in his 60's Mother Family Medical History: Diabetes Mellitus, Hypertension Additional Family Medical History / Comment(s): Mother is living General Exam Limitations: altered mental status General appearance: other (post-ictal) Head exam: Present: atraumatic, normocephalic, normal inspection Eye exam: Present: normal appearance, PERRL, EOMI. Absent: scleral icterus, conjunctival injection, periorbital swelling ENT exam: Present: normal exam, mucous membranes moist Neck exam: Present: normal inspection. Absent: tenderness, meningismus, lymphadenopathy Respiratory exam: Present: normal lung sounds bilaterally. Absent: respiratory distress, wheezes, rales, rhonchi, stridor Cardiovascular Exam: Present: normal rhythm, tachycardia, normal heart sounds. Absent: systolic murmur, diastolic murmur, rubs, gallop, clicks GI/Abdominal exam: Present: soft, normal bowel sounds. Absent: distended, tenderness, guarding, rebound, rigid Extremities exam: Present: normal inspection, full ROM, normal capillary refill. Absent: tenderness, pedal edema, joint swelling, calf tenderness Back exam: Present: normal inspection Neurological exam: Present: altered, other (post-ictal) Skin exam: Present: warm, dry, intact, normal color. Absent: rash Course Vital Signs 09/19/22 09/19/22 09/19/22 06:08 06:21 06:39 Temperature 99 F Pulse Rate 115 H 117 H 111 H Pulse Rate [ Pulse Oximetery ] Respiratory 20 16 18 Rate Blood Pressure 214/143 200/138 203/125 Blood Pressure [Right Arm] O2 Sat by Pulse 99 98 98 Oximetry 09/19/22 09/19/22 09/19/22 06:42 08:10 08:20 Temperature Pulse Rate 110 H 99 96 Pulse Rate [ Pulse Oximetery ] Respiratory 18 23 20 Rate Blood Pressure 176/111 181/119 175/111 Blood Pressure [Right Arm] O2 Sat by Pulse 98 97 97 Oximetry 09/19/22 09/19/22 09/19/22 08:40 08:50 09:00 Temperature Pulse Rate 94 96 105 H Pulse Rate [ Pulse Oximetery ] Respiratory 21 20 22 Rate Blood Pressure 178/126 176/114 192/145 Blood Pressure [Right Arm] O2 Sat by Pulse 97 96 96 Oximetry 09/19/22 09/19/22 09/19/22 10:42 11:00 11:10 Temperature Pulse Rate 109 H 102 H 122 H Pulse Rate [ Pulse Oximetery ] Respiratory 18 Rate Blood Pressure 190/148 202/141 193/151 Blood Pressure [Right Arm] O2 Sat by Pulse 99 100 97 Oximetry 09/19/22 09/19/22 09/19/22 11:15 11:30 11:45 Temperature Pulse Rate 123 H 114 H 116 H Pulse Rate [ Pulse Oximetery ] Respiratory 18 18 19 Rate Blood Pressure 193/151 202/146 171/131 Blood Pressure [Right Arm] O2 Sat by Pulse 97 97 97 Oximetry 09/19/22 09/19/22 09/19/22 12:00 12:30 13:00 Temperature 98.4 F Pulse Rate 108 H 99 96 Pulse Rate [ Pulse Oximetery ] Respiratory 16 Rate Blood Pressure 159/118 132/94 124/81 Blood Pressure [Right Arm] O2 Sat by Pulse 97 97 Oximetry 09/19/22 09/19/22 09/19/22 13:30 14:00 14:30 Temperature Pulse Rate 99 Pulse Rate [ Pulse Oximetery ] Respiratory Rate Blood Pressure 142/94 156/101 160/78 Blood Pressure [Right Arm] O2 Sat by Pulse Oximetry 09/19/22 09/19/22 09/19/22 15:00 15:30 16:00 Temperature 98.6 F Pulse Rate 98 100 Pulse Rate [ Pulse Oximetery ] Respiratory 20 Rate Blood Pressure 154/135 147/95 152/104 Blood Pressure [Right Arm] O2 Sat by Pulse 95 Oximetry 09/19/22 16:30 Temperature 98.2 F Pulse Rate Pulse Rate [ 91 Pulse Oximetery ] Respiratory 20 Rate Blood Pressure Blood Pressure 153/93 [Right Arm] O2 Sat by Pulse 98 Oximetry Medical Decision Making - Medical Decision Making Upon arrival he is placed in a trauma 2. A thorough history and physical exam was performed. Patient does have a another seizure after arrival into the emergency department. He is given 2 mg of Ativan. I did load the patient's Keppra 0 reports he is not taking the medications. Irises are conducted and demonstrated a CO2 of 9. Lactate is 5.3. Urinalysis demonstrates cocaine. Alcohol is less than 10. I did recommend admission as the patient did have 2 seizures without complete return to his baseline. First seizure was untreated by EMS. He remains seizure free after Keppra and Ativan administration. Patient will be admitted with neurology to consult. Spoke with [place] from [facility] to agree to admit the patient - Lab Data Result diagrams: 09/20/22 06:30 09/20/22 12:59 Lab Results 09/19/22 09/19/22 09/19/22 Range/Units 06:09 06:13 06:13 WBC 9.3 (3.8-10.6) k/uL RBC 5.96 H (4.30-5.90) m/uL Hgb 18.9 H (13.0-17.5) gm/dL Hct 58.5 H* (39.0-53.0) % MCV 98.2 (80.0-100.0) fL MCH 31.7 (25.0-35.0) pg MCHC 32.3 (31.0-37.0) g/dL RDW 12.7 (11.5-15.5) % Plt Count 149 L (150-450) k/uL MPV 8.5 Neutrophils % 51 % Lymphocytes % 40 % Monocytes % 6 % Eosinophils % 1 % Basophils % 1 % Neutrophils # 4.7 (1.3-7.7) k/uL Lymphocytes # 3.7 (1.0-4.8) k/uL Monocytes # 0.5 (0-1.0) k/uL Eosinophils # 0.0 (0-0.7) k/uL Basophils # 0.1 (0-0.2) k/uL Sodium 140 (137-145) mmol/L Potassium 3.9 (3.5-5.1) mmol/L Chloride 103 (98-107) mmol/L Carbon Dioxide 9 L* (22-30) mmol/L Anion Gap 28 mmol/L BUN 5 L (9-20) mg/dL Creatinine 1.05 (0.66-1.25) mg/dL Est GFR (CKD-EPI)AfAm >90 (>60 ml/min/1.73 sqM) Est GFR (CKD-EPI)NonAf 88 (>60 ml/min/1.73 sqM) Glucose 164 H (74-99) mg/dL POC Glucose (mg/dL) 161 H (70-110) mg/dL POC Glu Marketing Rep ID Wendi Fontaine Plasma Lactic Acid Maury (0.7-2.0) mmol/L Calcium 9.3 (8.4-10.2) mg/dL Magnesium 2.0 (1.6-2.3) mg/dL Total Bilirubin 3.0 H (0.2-1.3) mg/dL AST 92 H (17-59) U/L ALT 61 H (4-49) U/L Alkaline Phosphatase 152 H (38-126) U/L Troponin I (0.000-0.034) ng/mL Total Protein 9.5 H (6.3-8.2) g/dL Albumin 5.3 H (3.5-5.0) g/dL Urine Color Urine Appearance (Clear) Urine pH (5.0-8.0) Ur Specific Medina (1.001-1.035) Urine Protein (Negative) Urine Glucose (UA) (Negative) Urine Ketones (Negative) Urine Blood (Negative) Urine Nitrite (Negative) Urine Bilirubin (Negative) Urine Urobilinogen (<2.0) mg/dL Ur Leukocyte Esterase (Negative) Urine RBC (0-5) /hpf Urine WBC (0-5) /hpf Urine Mucus (None) /hpf Urine Opiates Screen (NotDetected) Ur Oxycodone Screen (NotDetected) Urine Methadone Screen (NotDetected) Ur Propoxyphene Screen (NotDetected) Ur Barbiturates Screen (NotDetected) U Tricyclic Antidepress (NotDetected) Levetiracetam (3.0-60.0) ug/mL Ur Phencyclidine Scrn (NotDetected) Ur Amphetamines Screen (NotDetected) U Methamphetamines Scrn (NotDetected) U Benzodiazepines Scrn (NotDetected) Urine Cocaine Screen (NotDetected) U Marijuana (THC) Screen (NotDetected) Serum Alcohol <10 mg/dL 09/19/22 09/19/22 09/19/22 Range/Units 06:13 06:13 07:15 WBC (3.8-10.6) k/uL RBC (4.30-5.90) m/uL Hgb (13.0-17.5) gm/dL Hct (39.0-53.0) % MCV (80.0-100.0) fL MCH (25.0-35.0) pg MCHC (31.0-37.0) g/dL RDW (11.5-15.5) % Plt Count (150-450) k/uL MPV Neutrophils % % Lymphocytes % % Monocytes % % Eosinophils % % Basophils % % Neutrophils # (1.3-7.7) k/uL Lymphocytes # (1.0-4.8) k/uL Monocytes # (0-1.0) k/uL Eosinophils # (0-0.7) k/uL Basophils # (0-0.2) k/uL Sodium (137-145) mmol/L Potassium (3.5-5.1) mmol/L Chloride (98-107) mmol/L Carbon Dioxide (22-30) mmol/L Anion Gap mmol/L BUN (9-20) mg/dL Creatinine (0.66-1.25) mg/dL Est GFR (CKD-EPI)AfAm (>60 ml/min/1.73 sqM) Est GFR (CKD-EPI)NonAf (>60 ml/min/1.73 sqM) Glucose (74-99) mg/dL POC Glucose (mg/dL) (70-110) mg/dL POC Glu Marketing Rep ID Plasma Lactic Acid Maury (0.7-2.0) mmol/L Calcium (8.4-10.2) mg/dL Magnesium (1.6-2.3) mg/dL Total Bilirubin (0.2-1.3) mg/dL AST (17-59) U/L ALT (4-49) U/L Alkaline Phosphatase (38-126) U/L Troponin I <0.012 (0.000-0.034) ng/mL Total Protein (6.3-8.2) g/dL Albumin (3.5-5.0) g/dL Urine Color Light Yellow Urine Appearance Clear (Clear) Urine pH 6.5 (5.0-8.0) Ur Specific Med[place] 1.010 (1.001-1.035) Urine Protein 2+ H (Negative) Urine Glucose (UA) 1+ H (Negative) Urine Ketones Trace H (Negative) Urine Blood Large H (Negative) Urine Nitrite Negative (Negative) Urine Bilirubin Negative (Negative) Urine Urobilinogen <2.0 (<2.0) mg/dL Ur Leukocyte Esterase Negative (Negative) Urine RBC 4 (0-5) /hpf Urine WBC <1 (0-5) /hpf Urine Mucus Rare H (None) /hpf Urine Opiates Screen Not Detected (NotDetected) Ur Oxycodone Screen Not Detected (NotDetected) Urine Methadone Screen Not Detected (NotDetected) Ur Propoxyphene Screen Not Detected (NotDetected) Ur Barbiturates Screen Not Detected (NotDetected) U Tricyclic Antidepress Not Detected (NotDetected) Levetiracetam <1.0 (3.0-60.0) ug/mL Ur Phencyclidine Scrn Not Detected (NotDetected) Ur Amphetamines Screen Not Detected (NotDetected) U Methamphetamines Scrn Not Detected (NotDetected) U Benzodiazepines Scrn Not Detected (NotDetected) Urine Cocaine Screen Not Detected (NotDetected) U Marijuana (THC) Screen Detected H (NotDetected) Serum Alcohol mg/dL 09/19/22 Range/Units 08:06 WBC (3.8-10.6) k/uL RBC (4.30-5.90) m/uL Hgb (13.0-17.5) gm/dL Hct (39.0-53.0) % MCV (80.0-100.0) fL MCH (25.0-35.0) pg MCHC (31.0-37.0) g/dL RDW (11.5-15.5) % Plt Count (150-450) k/uL MPV Neutrophils % % Lymphocytes % % Monocytes % % Eosinophils % % Basophils % % Neutrophils # (1.3-7.7) k/uL Lymphocytes # (1.0-4.8) k/uL Monocytes # (0-1.0) k/uL Eosinophils # (0-0.7) k/uL Basophils # (0-0.2) k/uL Sodium (137-145) mmol/L Potassium (3.5-5.1) mmol/L Chloride (98-107) mmol/L Carbon Dioxide (22-30) mmol/L Anion Gap mmol/L BUN (9-20) mg/dL Creatinine (0.66-1.25) mg/dL Est GFR (CKD-EPI)AfAm (>60 ml/min/1.73 sqM) Est GFR (CKD-EPI)NonAf (>60 ml/min/1.73 sqM) Glucose (74-99) mg/dL POC Glucose (mg/dL) (70-110) mg/dL POC Glu Marketing Rep ID Plasma Lactic Acid Maury 5.3 H* (0.7-2.0) mmol/L Calcium (8.4-10.2) mg/dL Magnesium (1.6-2.3) mg/dL Total Bilirubin (0.2-1.3) mg/dL AST (17-59) U/L ALT (4-49) U/L Alkaline Phosphatase (38-126) U/L Troponin I (0.000-0.034) ng/mL Total Protein (6.3-8.2) g/dL Albumin (3.5-5.0) g/dL Urine Color Urine Appearance (Clear) Urine pH (5.0-8.0) Ur Specific [place] (1.001-1.035) Urine Protein (Negative) Urine Glucose (UA) (Negative) Urine Ketones (Negative) Urine Blood (Negative) Urine Nitrite (Negative) Urine Bilirubin (Negative) Urine Urobilinogen (<2.0) mg/dL Ur Leukocyte Esterase (Negative) Urine RBC (0-5) /hpf Urine WBC (0-5) /hpf Urine Mucus (None) /hpf Urine Opiates Screen (NotDetected) Ur Oxycodone Screen (NotDetected) Urine Methadone Screen (NotDetected) Ur Propoxyphene Screen (NotDetected) Ur Barbiturates Screen (NotDetected) U Tricyclic Antidepress (NotDetected) Levetiracetam (3.0-60.0) ug/mL Ur Phencyclidine Scrn (NotDetected) Ur Amphetamines Screen (NotDetected) U Methamphetamines Scrn (NotDetected) U Benzodiazepines Scrn (NotDetected) Urine Cocaine Screen (NotDetected) U Marijuana (THC) Screen (NotDetected) Serum Alcohol mg/dL - EKG Data EKG Comments: EKG demonstrates sinus tachycardia with a rate of 111. WA interval 96. QRS 85. QTC of 404. J-point elevation. No reciprocal depression. EKG interpreted by myself Disposition Clinical Impression: Status epilepticus, Accelerated hypertension Disposition: ADMITTED IP TO THIS [facility] Condition: Stable Is patient prescribed a controlled substance at d/c from ED?: No Time of Disposition: 08:12 Decision to Admit Reason: Admit from EC Decision Date: 09/19/22 Decision Time: 08:12
[2022-09-19 08:18] LABS: Cocaine Screen,Urine Not Detected (NotDetected); Phencyclidine Screen,Urine Not Detected (NotDetected); Urn Cannabinoid Scrn Detected (NotDetected)
[2022-09-19 08:19] LABS: Amphetamine Screen,Urine Not Detected (NotDetected); Barbiturate Screen,Urine Not Detected (NotDetected); Benzodiazepines Screen,Urine Not Detected (NotDetected); Methadone Screen, Urine Not Detected (NotDetected); Opiate Screen,Urine Not Detected (NotDetected); Oxycodone Screen, Urine Not Detected (NotDetected); Tricyclic Antidepressant,Urine Not Detected (NotDetected)
[2022-09-19] MEDS ORDERED: THIAMINE 100 MG/ML 2 ML VIAL IM STA (09:33)
[2022-09-19] MEDS ORDERED: LORazepam 2 MG/ML INJ IV PRN (09:33)
[2022-09-19] MEDS: SODIUM CHLORIDE 0.9% 1,000 ML IV SCH ×2 (09:48→15:28)
[2022-09-19] MEDS: hydrALAZINE HCL 20 MG/ML 1 ML VIAL IVP PRN ×2 (10:20→16:52)
[2022-09-19] MEDS: FOLIC ACID 1 MG TAB PO SCH (10:20)
[2022-09-19 10:23] LABS: ALT 37 U/L (4-49); AST 79 U/L (17-59); African American GFR (CKD) >90 (>60 ml/min/1.73 sqM); Albumin 4.4 g/dL (3.5-5.0); Alkaline Phosphatase 141 U/L (38-126); Anion Gap 7 mmol/L; Blood Urea Nitrogen 7 mg/dL (9-20); C Reactive Protein <0.5 mg/dL (<1.0); Calcium 8.8 mg/dL (8.4-10.2); Carbon Dioxide 21 mmol/L (22-30); Chloride 108 mmol/L (98-107); Glucose 102 mg/dL (74-99); Non-African American GFR(CKD) >90 (>60 ml/min/1.73 sqM); Potassium 4.4 mmol/L (3.5-5.1); Sodium 136 mmol/L (137-145); Total Bilirubin 2.3 mg/dL (0.2-1.3); Total Protein 7.7 g/dL (6.3-8.2)
[2022-09-19] MEDS ORDERED: ENALAPRILAT 1.25 MG/ML 1 ML VIAL IVP PRN (10:50)
[2022-09-19] MEDS: cloNIDine HCL 0.1 MG TAB PO SCH ×3 (11:07→21:42)
[2022-09-19] MEDS: LORazepam 2 MG/ML INJ IV PRN ×6 (11:07→17:53)
[2022-09-19] MEDS ORDERED: LACOSAMIDE IV 200 MG in SODIUM CHLORIDE 0.9% 50 ML IVPB SCH (11:45)
[2022-09-19] MEDS ORDERED: LACOSAMIDE IV 200 MG in SODIUM CHLORIDE 0.9% 50 ML IVPB ONE (12:00)
[2022-09-19] MEDS: NICOTINE 21MG/24HR PATCH TRANSDERM SCH (15:28)
--- NOTE | 2022-09-19 16:21 | P.CNNES ---
History of Present Illness Consult date: 09/19/22 Reason for Consult: seizure History of Present Illness: The patient is a 42-year-old male who is seen in neurologic consultation on September 19, 2022, via teleneurology. The patient is being seen because of breakthrough seizure. The patient reports that he has not been taking his seizure medication because he has no further. He says he has not taken any since July. He reports moving here from [place] and does not have a neurologist or anyone who can prescribe his seizure medications. The patient was seen for breakthrough seizure in March of this year. He has a history of polysubstance abuse including cocaine and marijuana. The patient also is an alcoholic. He reports drinking heavily every day. He says that he drinks 3 or 4 cases of beer daily. He reports that his last drink was the morning prior to admission, at approximately 6 AM. Past Medical History Past Medical History: Hypertension, Seizure Disorder Additional Past Medical History / Comment(s): Last seizure 06/28/19, occasional low back pain. History of Any Multi-Drug Resistant Organisms: None Reported Past Surgical History: Hernia Repair Additional Past Surgical History / Comment(s): R inguinal hernia repair. Past Anesthesia/Blood Transfusion Reactions: No Reported Reaction Additional Past Anesthesia/Blood Transfusion Reaction / Comment(s): Pt has never had surgery/anesthesia Past Psychological History: No Psychological Hx Reported Smoking Status: Current every day smoker Past Alcohol Use History: Abuse, Daily Past Drug Use History: Marijuana - Past Family History Father Family Medical History: CVA/TIA Additional Family Medical History / Comment(s): Father is in his 60's Mother Family Medical History: Diabetes Mellitus, Hypertension Additional Family Medical History / Comment(s): Mother is living Medications and Allergies Home Medications Medication Instructions Recorded Confirmed Type Lacosamide [Vimpat] 100 mg PO BID 30 Days #60 tab 03/30/22 09/19/22 Rx levETIRAcetam [Keppra] 1,000 mg PO BID 30 Days #60 03/30/22 09/19/22 Rx Allergies Allergy/AdvReac Type Severity Reaction Status Date / Time No Known Allergies Allergy Verified 09/19/22 10:59 Physical Examination - Vital Signs Vital Signs: Vital Signs Temp Pulse Resp BP Pulse Ox 09/19/22 11:10 122 H 193/151 97 09/19/22 11:00 102 H 202/141 100 09/19/22 10:42 109 H 18 190/148 99 09/19/22 09:00 105 H 22 192/145 96 09/19/22 08:50 96 20 176/114 96 09/19/22 08:40 94 21 178/126 97 09/19/22 08:20 96 20 175/111 97 09/19/22 08:10 99 23 181/119 97 09/19/22 06:42 110 H 18 176/111 98 09/19/22 06:39 111 H 18 203/125 98 09/19/22 06:21 117 H 16 200/138 98 09/19/22 06:08 99 F 115 H 20 214/143 99 Intake and Output 09/18/22 09/19/22 09/19/22 22:59 06:59 14:59 Output Total 400 Balance -400 Output: Urine 400 Other: Weight 68.492 kg Gen.: The patient is reclining in the bed. He is sleepy and difficult to keep awake. He is in no acute distress. HEENT: Head is atraumatic, normocephalic. Fundus not visualized. There is no scleral icterus. Mucous membranes are moist. Neck: Supple without carotid bruits Heart: Regular rate and rhythm Extremities: Without edema Neurological examination Mental status: The patient is sleepy. He is oriented 3. His speech is clear. Cranial nerves: Pupils are equal at 2 mm and reactive. Visual young are full to confrontation. Extraocular movements are intact. Facial sensation is intact. There is no facial asymmetry. Hearing is grossly intact. Uvula and palate are midline. Shoulder shrug is symmetric. Tongue protrudes midline. There is no evidence of bite. Motor: Strength is 5/5 throughout Sensation: Grossly intact to light touch throughout Coordination: Finger to nose and rapid alternating movements are intact. There is no evidence of tremor. Deep tendon reflexes: 2+/4+ in the upper extremities. Lower extremity reflexes are absent. Gait: Not assessed Results - Laboratory Findings CBC and BMP: 09/19/22 06:13 09/19/22 10:00 Abnormal Lab Findings: Abnormal Labs 09/19/22 09/19/22 09/19/22 06:09 06:13 06:13 RBC 5.96 H Hgb 18.9 H Hct 58.5 H* Plt Count 149 L Sodium Chloride Carbon Dioxide 9 L* BUN 5 L Glucose 164 H POC Glucose (mg/dL) 161 H Plasma Lactic Acid Maury Total Bilirubin 3.0 H AST 92 H ALT 61 H Alkaline Phosphatase 152 H Total Protein 9.5 H Albumin 5.3 H Urine Protein Urine Glucose (UA) Urine Ketones Urine Blood Urine Mucus U Marijuana (THC) Screen 09/19/22 09/19/22 09/19/22 07:15 08:06 10:00 RBC Hgb Hct Plt Count Sodium 136 L Chloride 108 H Carbon Dioxide 21 L BUN 7 L Glucose 102 H POC Glucose (mg/dL) Plasma Lactic Acid Maury 5.3 H* Total Bilirubin 2.3 H AST 79 H ALT Alkaline Phosphatase 141 H Total Protein Albumin Urine Protein 2+ H Urine Glucose (UA) 1+ H Urine Ketones Trace H Urine Blood Large H Urine Mucus Rare H U Marijuana (THC) Screen Detected H Assessment and Plan Assessment: 1. Break thru seizure secondary to noncompliance with meds 2. Alcohol abuse 3. Hypertensive urgency ? onset of delrium tremens 4. Lactic acidosis 5. Elevated hemoglobin and hematocrit Plan: 1. The patient was given a loading dose of Keppra and Vimpat. Maintenance dosing was also ordered 2. Seizure precautions 3. Blood pressure control 4. Alcohol withdrawal protocol may need to be initiated if the patient remains in the hospital; this likely will be beneficial for his blood pressure Time with Patient: Greater than 30 (spent 25 minutes examining patient. An additional 25 minutes was spent reviewing imaging reports, labs, documentation and preparing this note)
[2022-09-19] MEDS: THIAMINE 100 MG TAB PO SCH (17:46)
--- NOTE | 2022-09-19 18:31 | P.HPIM ---
History of Present Illness H&P Date: 09/19/22 Chief Complaint: Seizure 42-year-old male with past medical history of seizure disorder, hypertension who presents to the emergency department after he had a seizure at home. His child's mother reports that he had a seizure that lasted a few minutes at home. Usually he will be post ictal for a while however the patient was agitated and walking around. Upon arrival into the emergency department the patient is able to provide some history. States that he is supposed to be on Keppra and Vimpat however has not been taking the medications as he does not have any refills. He has been off of the medications for one month. Chart is reviewed and states that the patient does have history of alcohol and cocaine use. Family at bedside state that the patient continues to drink. There was no reported trauma. No fevers. No other alleviating, precipitating or modifying factors Review of Systems REVIEW OF SYSTEMS: CONSTITUTIONAL: No fever, no malaise, no fatigue. HEENT: No recent visual problems or hearing problems. Denied any sore throat. CARDIOVASCULAR: No chest pain, orthopnea, PND, no palpitations, no syncope. PULMONARY: No shortness of breath, no cough, no hemoptysis. GASTROINTESTINAL: No diarrhea, no nausea, no vomiting, no abdominal pain. NEUROLOGICAL: No headaches, no weakness, no numbness. HEMATOLOGICAL: Denies any bleeding or petechiae. GENITOURINARY: Denies any burning micturition, frequency, or urgency. MUSCULOSKELETAL/RHEUMATOLOGICAL: Denies any joint pain, swelling, or any muscle pain. ENDOCRINE: Denies any polyuria or polydipsia. The rest of the 14-point review of systems is negative. Past Medical History Past Medical History: Hypertension, Seizure Disorder Additional Past Medical History / Comment(s): Last seizure 06/28/19, occasional low back pain. History of Any Multi-Drug Resistant Organisms: None Reported Past Surgical History: Hernia Repair Additional Past Surgical History / Comment(s): R inguinal hernia repair. Past Anesthesia/Blood Transfusion Reactions: No Reported Reaction Additional Past Anesthesia/Blood Transfusion Reaction / Comment(s): Pt has never had surgery/anesthesia Past Psychological History: No Psychological Hx Reported Smoking Status: Current every day smoker Past Alcohol Use History: Abuse, Daily Past Drug Use History: Marijuana - Past Family History Father Family Medical History: CVA/TIA Additional Family Medical History / Comment(s): Father is in his 60's Mother Family Medical History: Diabetes Mellitus, Hypertension Additional Family Medical History / Comment(s): Mother is living Medications and Allergies Home Medications Medication Instructions Recorded Confirmed Type Lacosamide [Vimpat] 100 mg PO BID 30 Days #60 tab 03/30/22 09/19/22 Rx levETIRAcetam [Keppra] 1,000 mg PO BID 30 Days #60 03/30/22 09/19/22 Rx Allergies Allergy/AdvReac Type Severity Reaction Status Date / Time No Known Allergies Allergy Verified 09/19/22 10:59 Physical Exam Vitals: Vital Signs Temp Pulse Resp BP Pulse Ox 09/19/22 09:00 105 H 22 192/145 96 09/19/22 08:50 96 20 176/114 96 09/19/22 08:40 94 21 178/126 97 09/19/22 08:20 96 20 175/111 97 09/19/22 08:10 99 23 181/119 97 09/19/22 06:42 110 H 18 176/111 98 09/19/22 06:39 111 H 18 203/125 98 09/19/22 06:21 117 H 16 200/138 98 09/19/22 06:08 99 F 115 H 20 214/143 99 Intake and Output 09/18/22 09/19/22 09/19/22 22:59 06:59 14:59 Other: Weight 68.492 kg Gen.: The patient is reclining in the bed. He is sleepy and difficult to keep awake. He is in no acute distress. HEENT: Head is atraumatic, normocephalic. Fundus not visualized. There is no scleral icterus. Mucous membranes are moist. Neck: Supple without carotid bruits Heart: Regular rate and rhythm Extremities: Without edema Neurological examination Mental status: The patient is sleepy. He is oriented 3. His speech is clear. Results CBC & Chem 7: 09/19/22 06:13 09/19/22 10:00 Labs: Abnormal Lab Results - Last 24 Hours (Table) 09/19/22 09/19/22 09/19/22 Range/Units 06:09 06:13 06:13 RBC 5.96 H (4.30-5.90) m/uL Hgb 18.9 H (13.0-17.5) gm/dL Hct 58.5 H* (39.0-53.0) % Plt Count 149 L (150-450) k/uL Carbon Dioxide 9 L* (22-30) mmol/L BUN 5 L (9-20) mg/dL Glucose 164 H (74-99) mg/dL POC Glucose (mg/dL) 161 H (70-110) mg/dL Plasma Lactic Acid Maury (0.7-2.0) mmol/L Total Bilirubin 3.0 H (0.2-1.3) mg/dL AST 92 H (17-59) U/L ALT 61 H (4-49) U/L Alkaline Phosphatase 152 H (38-126) U/L Total Protein 9.5 H (6.3-8.2) g/dL Albumin 5.3 H (3.5-5.0) g/dL Urine Protein (Negative) Urine Glucose (UA) (Negative) Urine Ketones (Negative) Urine Blood (Negative) Urine Mucus (None) /hpf U Marijuana (THC) Screen (NotDetected) 09/19/22 09/19/22 Range/Units 07:15 08:06 RBC (4.30-5.90) m/uL Hgb (13.0-17.5) gm/dL Hct (39.0-53.0) % Plt Count (150-450) k/uL Carbon Dioxide (22-30) mmol/L BUN (9-20) mg/dL Glucose (74-99) mg/dL POC Glucose (mg/dL) (70-110) mg/dL Plasma Lactic Acid Maury 5.3 H* (0.7-2.0) mmol/L Total Bilirubin (0.2-1.3) mg/dL AST (17-59) U/L ALT (4-49) U/L Alkaline Phosphatase (38-126) U/L Total Protein (6.3-8.2) g/dL Albumin (3.5-5.0) g/dL Urine Protein 2+ H (Negative) Urine Glucose (UA) 1+ H (Negative) Urine Ketones Trace H (Negative) Urine Blood Large H (Negative) Urine Mucus Rare H (None) /hpf U Marijuana (THC) Screen Detected H (NotDetected) Assessment and Plan Assessment: 1. Breakthrough seizures related to noncompliance with meds - Patient loaded on Vimpat and Keppra while in ED; we will be started on maintenance doses - Continue with seizure precautions and neuro checks per protocol 2. Alcohol abuse; blood alcohol level is unremarkable; concern about alcohol withdrawal seizures - Patient has been placed on CIWA protocol with Ativan; we will order IV fluids in form of normal saline at a rate of 1 25 mL an hour with thiamine and folic acid 3. Hypertensive urgency; likely related to alcohol withdrawal - Patient has been placed on Catapres 0.3 mg 3 times a day with enalapril 2.5 mg every 6 hours when necessary and hydralazine 10 mg IV every 6 hours when necessary - We will reevaluate patient at time of discharge for need for oral antihypertensive therapy after discharge 4. Lactic acidosis; likely related to break through seizures; patient remains on IV fluids 5. Polycythemia; etiology unclear; likely dehydration versus seizures versus alcohol abuse; monitor CBC closely
[2022-09-20] MEDS: THIAMINE 100 MG TAB PO SCH (06:38)
[2022-09-20] MEDS: hydrALAZINE HCL 20 MG/ML 1 ML VIAL IVP PRN (06:38)
[2022-09-20] MEDS: SODIUM CHLORIDE 0.9% 1,000 ML IV SCH ×2 (06:41→11:57)
[2022-09-20 08:49] LABS: Basophils % (A) 0 %; Eosinophils % (A) 0 %; HCT 50.9 % (39.0-53.0); HGB 17.3 gm/dL (13.0-17.5); Lymphocytes # (A) 1.2 k/uL (1.0-4.8); Lymphocytes % (A) 16 %; MCH 32.5 pg (25.0-35.0); MCV 95.6 fL (80.0-100.0); Mean Platelet Volume 8.6; Monocytes # (A) 0.5 k/uL (0-1.0); Monocytes % (A) 6 %; Neutrophils # (A) 5.8 k/uL (1.3-7.7); Neutrophils % (A) 75 %; Platelet Count 115 k/uL (150-450); RBC 5.33 m/uL (4.30-5.90); RDW 12.2 % (11.5-15.5); WBC 7.7 k/uL (3.8-10.6)
[2022-09-20] MEDS ORDERED: THIAMINE 100 MG TAB PO SCH (09:00)
[2022-09-20 09:01] LABS: Calcium 8.7 mg/dL (8.4-10.2); Potassium 3.8 mmol/L (3.5-5.1)
[2022-09-20] MEDS: cloNIDine HCL 0.1 MG TAB PO SCH (09:45)
[2022-09-20] MEDS: FOLIC ACID 1 MG TAB PO SCH (09:45)
[2022-09-20] MEDS: NICOTINE 21MG/24HR PATCH TRANSDERM SCH (09:46)
[2022-09-20] MEDS: LORazepam 2 MG/ML INJ IV PRN (10:16)
[2022-09-20 12:02] VITALS: TEMP 98.6
[2022-09-20 13:02] VITALS: BP 141/93; PULSE 80; RESP 16
[2022-09-20] MEDS ORDERED: LORazepam 1 MG TAB PO PRN (14:12)
[2022-09-20] MEDS ORDERED: SODIUM CHLORIDE 0.9% 1,000 ML IV SCH (14:15)
--- NOTE | 2022-09-20 14:22 | P.PN ---
Subjective Progress Note Date: 09/20/22 42-year-old male with past medical history of seizure disorder, hypertension who presents to the emergency department after he had a seizure at home. His child's mother reports that he had a seizure that lasted a few minutes at home. Usually he will be post ictal for a while however the patient was agitated and walking around. Upon arrival into the emergency department the patient is able to provide some history. States that he is supposed to be on Keppra and Vimpat however has not been taking the medications as he does not have any refills. He has been off of the medications for one month. Chart is reviewed and states that the patient does have history of alcohol and cocaine use. Family at bedside state that the patient continues to drink. There was no reported trauma. No fevers. No other alleviating, precipitating or modifying factors 09/20/2022 Patient is evaluated today sitting up at bedside he is alert x 3. No seizure activity reported during hospital stay. He does report desire for alcohol cessation and has been doing well on IV ativan which is transitioned to oral medication today. He has been resumed on home amlodipine. Creatinine is increased up to 1.62 today and was repeated at 1.42. Recommend to monitor patient overnight on oral medications and IV fluids and repeat labs tomorrow. Review of Systems Constitutional: Denied any fatigue denied any fever. Cardio vascular: denied any chest pain, palpitations Gastrointestinal: denied any nausea, vomiting, diarrhea Pulmonary: Denied any shortness of breath cough Neurologic denied any new focal deficits All inpatient medications were reviewed and appropriate changes in these medications as dictated in the interval history and assessment and plan. PHYSICAL EXAMINATION: GENERAL: The patient is alert and oriented x3, not in any acute distress. Well developed, well nourished. HEENT: Pupils are round and equally reacting to light. EOMI. No scleral icterus. No conjunctival pallor. Normocephalic, atraumatic. No pharyngeal erythema. No thyromegaly. CARDIOVASCULAR: S1 and S2 present. No murmurs, rubs, or gallops. PULMONARY: Chest is clear to auscultation, no wheezing or crackles. ABDOMEN: Soft, nontender, nondistended, normoactive bowel sounds. No palpable organomegaly. MUSCULOSKELETAL: No joint swelling or deformity. EXTREMITIES: No cyanosis, clubbing, or pedal edema. NEUROLOGICAL: Gross neurological examination did not reveal any focal deficits. Weak. SKIN: No rashes. Assessment and Plan Assessment Breakthrough seizures related to noncompliance of medications patient is supposed to be on Vimpat and Keppra Chronic alcohol abuse with concern about alcohol withdrawal seizure Hypertensive urgency possibly from alcohol. Patient has also been out of his amlodipine. Acute renal failure mostly prerenal from decrease in blood pressure Lactic acidosis likely related to breakthrough seizure improved with IV fluids Polycythemia etiology unclear likely dehydration versus seizure versus alcohol abuse, improved with hydration Thrombocytopenia likely from chronic alcohol abuse GI prophylaxis Full Code Plan Transition to oral blood pressure medication Gentle hydration and repeat labs in AM Continue to monitor for alcohol withdrawal Seizure precautions Resumed on antiseizure medications Neurology following. Possible DC in the next 24 hours The impression and plan of care has been dictated by Corie Diaz, Nurse Practitioner as directed. Dr. Erlinda MD I have performed a history and physical examination and medical decision making of this patient, discussed the same with the dictator, and agree with the dictators assessment and plan as written, documented as a scribe. Based on total visit time, I have performed more than 50% of this visit. Objective - Vital Signs Vital signs: Vital Signs Temp 98.6 F 09/20/22 12:00 Pulse 80 09/20/22 12:00 Resp 16 09/20/22 12:00 BP 141/93 09/20/22 12:00 Pulse Ox 100 09/20/22 12:00 FiO2 Intake & Output 09/19/22 09/20/22 09/20/22 18:59 06:59 18:59 Intake Total 690 180 Output Total 401 1100 Balance 289 -1100 180 Weight 68.492 kg Intake: IV 450 Sodium Chloride 0.9% 1, 450 000 ml @ 130 mls/hr IV . Q7H42M PENDING SALE TO [facility] Rx#:[id number] Oral 240 180 Output: Urine 401 1100 Other: Voiding Method Toilet Toilet Urinal Urinal # Voids 4 # Bowel Movements 1 - Labs CBC & Chem 7: 09/20/22 06:30 09/20/22 12:59 Labs: Abnormal Lab Results - Last 24 Hours (Table) 09/19/22 09/20/22 09/20/22 Range/Units 10:00 06:30 06:30 Plt Count 115 L (150-450) k/uL Chloride 111 H (98-107) mmol/L BUN 7 L (9-20) mg/dL Creatinine 1.63 H (0.66-1.25) mg/dL Procalcitonin 0.12 H (0.02-0.09) ng/mL 09/20/22 Range/Units 12:59 Plt Count (150-450) k/uL Chloride (98-107) mmol/L BUN (9-20) mg/dL Creatinine 1.42 H (0.66-1.25) mg/dL Procalcitonin (0.02-0.09) ng/mL Assessment and Plan Time with Patient: Greater than 30
[2022-09-20] MEDS ORDERED: chlordiazePOXIDE 25 MG CAP PO SCH (21:00)
[2022-09-20] MEDS ORDERED: cloNIDine HCL 0.1 MG TAB PO SCH (21:00)
[2022-09-21] MEDS ORDERED: amLODIPine 10 MG TAB PO SCH (09:00)
--- NOTE | 2022-09-21 15:05 | P.DS ---
Providers Date of admission: 09/19/22 08:13 Attending physician: Meka Mccormick Consults: 09/19/22 08:13 Consult Physician Urgent Consulting Provider: Lety Peterson Consult Reason/Comments: breakthrough seizure Do you want consulting provider notified?: Yes Primary care physician: Alberto Goddard [facility] Course: Final Diagnosis Breakthrough seizures related to noncompliance of medications patient is suppo sed to be on Vimpat and Keppra Chronic alcohol abuse with concern about alcohol withdrawal seizure Hypertensive urgency possibly from alcohol. Patient has also been out of his amlodipine. Acute renal failure mostly prerenal from decrease in blood pressure Lactic acidosis likely related to breakthrough seizure improved with IV fluids Polycythemia etiology unclear likely dehydration versus seizure versus alcohol abuse, improved with hydration Thrombocytopenia likely from chronic alcohol abuse Full Code Discharge Disposition Patient is discharged home with significant other, overall guarded condition secondary to chronic alcohol use. Patient has been resumed on seizure medications and also blood pressure medication. He verbalizes a desire to quit drinking. He will discharged on short course of oral librium. No further seizure activity noted. He has been referred to Dr. Leticia Jackson on discharge and also the [facility]. Recommend to repeat BMP in 2 to 3 days on discharge as well. Patient is recommended to follow up with Dr Glass on discharge. Patient may benefit from following up with nephrology on discharge as well. Total time taken in discharge planning greater than 35 minutes. Hospital Course This is a 42 year old male with medical history of seizure disorder, hypertension, chronic alcohol abuse. Presents to the hospital with reports of seizure like activity. Brain CT negative on admission, he was admitted to the hospital and neurology consulted. He states he has been out of his seizure and blood pressure medication since he has been unable to find a primary doctor to fill his medications. He does follow at Dr Langley office. Patient also presents with hypertensive urgency blood pressure greater than 200/110s. He was started on clonidine, blood pressure improved. He was also started on CIWA protocol and monitored closely for acute alcohol withdrawal. Patient improved. Blood pressure did drop into the 140s systolic and his creatinine increased up to 1.63, it was repeated at 1.42. He is recommended to continue blood pressure medications and repeat BMP in 2 to 3 days. Denies chest pain, denies shortness of breath. 09/20/2022 Patient is evaluated today sitting up at bedside with his significant other. He denies shortness of breath denies chest pain. Creatinine repeat 1.42. He is asking for discharge home. He is understanding of the importance of establishing care with a primary provider and also following up at his neurologists office. He is educated extensively on importance of alcohol abstinence. He reports he will maintain compliance with all medications. He is urinating without difficulty. Alert x 3. Lungs are clear, S1 S2 auscultated, abdomen is soft and nontender. Focal neurological exam is negative. Please see medication reconciliation for a list of current medication. Thank you for allowing us to participate in the care of this patient. The impression and plan of care has been dictated by Corie Diaz, Nurse Practitioner as directed. Dr. Erlinda MD I have performed a history and physical examination and medical decision making of this patient, discussed the same with the dictator, and agree with the dictators assessment and plan as written, documented as a scribe. Based on total visit time, I have performed more than 50% of this visit. Patient Condition at Discharge: Stable Plan - Discharge Summary Discharge Rx Participant: Yes New Discharge Prescriptions: New cloNIDine HCL [Catapres] 0.1 mg PO BID #60 tab Folic Acid 1 mg PO DAILY #30 tab Nicotine 21Mg/24Hr Patch [Habitrol] 1 patch TRANSDERM DAILY #7 patch levETIRAcetam [Keppra] 750 mg PO Q12HR #60 tab chlordiazePOXIDE HCl [Librium] 0 mg PO DIRECTED 2 Days #6 cap amLODIPine [Norvasc] 10 mg PO DAILY #30 tab Thiamine [Vitamin B-1] 100 mg PO BID-W/MEALS #60 tab Continue Lacosamide [Vimpat] 100 mg PO BID 30 Days #60 tab Discontinued levETIRAcetam [Keppra] 1,000 mg PO BID 30 Days #60 Discharge Medication List Folic Acid 1 mg PO DAILY #30 tab 09/20/22 [Rx] Lacosamide [Vimpat] 100 mg PO BID 30 Days #60 tab 09/20/22 [Rx] Nicotine 21Mg/24Hr Patch [Habitrol] 1 patch TRANSDERM DAILY #7 patch 09/20/22 [Rx] Thiamine [Vitamin B-1] 100 mg PO BID-W/MEALS #60 tab 09/20/22 [Rx] amLODIPine [Norvasc] 10 mg PO DAILY #30 tab 09/20/22 [Rx] chlordiazePOXIDE HCl [Librium] 0 mg PO DIRECTED 2 Days #6 cap 09/20/22 [Rx] cloNIDine HCL [Catapres] 0.1 mg PO BID #60 tab 09/20/22 [Rx] levETIRAcetam [Keppra] 750 mg PO Q12HR #60 tab 09/20/22 [Rx] Follow up Appointment(s)/Referral(s): Leticia Jackson MD [STAFF PHYSICIAN] - 1-2 Days Holly Glass MD [Medical Doctor] - 1 Week [facility] [NON-STAFF] - 1-2 Days Ambulatory/Diagnostic Orders: Basic Metabolic Panel [LAB.AMB] Time Frame: 2 Days, Location: None Selected Patient Instructions/Handouts: Seizure/Epilepsy Discharge Instructions & Follow-Up Activity/Diet/Wound Care/Special Instructions: Continue Seizure Medication Make a follow up appointment with Dr. Barry Take blood pressure daily at home and keep log for follow up appointment Continue with amlodipine and clonidine as prescribed Recommend to see Dr. Leticia Jackson for primary care on follow up Repeat labs in 2 days Recommend for total alcohol cessation. Discharge Disposition: HOME SELF-CARE
== END 2022-09-20 15:48 | disposition home or self-care (01) | DRG 101 ==
LOC: EC 06:04 → 3SCARD 08:13
PROVIDERS: ADMIT Hospitalist; ATTEND Hospitalist
DX: G40.901 Epilepsy, unspecified, not intractable, with status epilepticus (principal); E87.20 Acidosis, unspecified; F10.231 Alcohol dependence with withdrawal delirium; N17.9 Acute kidney failure, unspecified; D69.59 Other secondary thrombocytopenia; D75.1 Secondary polycythemia; I16.0 Hypertensive urgency; F17.210 Nicotine dependence, cigarettes, uncomplicated; I10 Essential (primary) hypertension; T42.6X6A Underdosing of other antiepileptic and sedative-hypnotic drugs, initial encounter; Z91.128 Patient's intentional underdosing of medication regimen for other reason; Z82.49 Family history of ischemic heart disease and other diseases of the circulatory system; E86.0 Dehydration; Z28.310 Unvaccinated for COVID-19; Z28.21 Immunization not carried out because of patient refusal
CPT/HCPCS: 36415; 70450; 80048; 80053; 80177; 80306; 80320; 81001; 82565; 83605; 83735; 84145; 84484; 85025; 86140; 93005; 96361; 96372; 96374; 96375; 96376; 99285